=== PATIENT | female | born 1940 | race Caucasian/White ===

== ENCOUNTER 2017-05-05 12:30 | Inpatient (IN) | payer MEDICARE ==
[~2017-05-05] VITALS: Ht 170.2 cm; Wt 61.8 kg
[2017-05-05 12:32] VITALS: BP 128/56; PULSE 102; RESP 17; O2SAT 97
[2017-05-05 13:37] LABS: BASOPHILS % (AUTO) 0.2 % (0-3); EOSINOPHILS % (AUTO) 1.2 % (0-5); MONOCYTES % (AUTO) 10.4 % (4-12); Mean Corpuscular Volume 89.2 fL (81-100); NEUTROPHILS % (AUTO) 67.6 % (40-74); Platelet Count 202 bil/L (150-400)
[2017-05-05 14:00] LABS: Magnesium 1.9 mg/dL (1.6-2.6)
--- NOTE | 2017-05-05 14:26 | ED.REPORT ---
HPI-General Illness Date of Service May 05, 2017 ED Provider: Kendall Addison MD The patient is a 76 year old female with history of Val's granulomatosis, who was sent to the emergency department from the walk in clinic for 1 month of progressive abdominal swelling. She was seen at the walk-in clinic 1 week ago, but was unhappy with the physicians bedside manner and left without getting a CT scan. The swelling has continued to progress. She has also noticed indigestion and has been taking Pepto-Bismol with some relief. She has been having darker stools recently and also mentions some bright red blood that she believes was from a hemorrhoid. She denies current abdominal pain, nausea, vomiting, chest pain, shortness of breath, fever or chills. She does not drink alcohol regularly. Nursing Notes Stated Complaint: ABDOMINAL PAIN Chief Complaint: Female Abdominal Pain Nursing Notes Reviewed: Yes Allergies: Coded Allergies: No Known Allergies (Unverified , 05/05/17) Scheduled Multivitamin (Multivitamins) 1 Each Capsule 1 EACH PO DAILY Scheduled PRN Carboxymethylcellulose Sodium (Refresh Tears) 15 Ml Drops 1 DROP BOTH_EYES TID PRN PRN For Eye Irritation Naproxen Na-Diphenhydramin HCl (Aleve Pm Caplet) 220 Mg-25 Mg Tablet 1 EACH PO HS PRN PRN Insomnia General Time Seen by MD: 12:45 Chief Complaint Other (abdominal bloating) Hx Obtained From: Patient Arrived By: Walk-in Sudden in Onset?: No Onset Occurred: More than a week ago... Symptom Duration: Since onset Location: : Abdomen Quality: Painful Severity: Current: No pain currently Severity: Maximum: Mild Recent Healthcare: No recent hospitalization, Recent doctor visit Similar Sx Previous: No Past Medical History Past Medical History Val's granulomatosis Past Surgical History Reports: Hysterectomy Family History Noncontributory Social History Alcohol Use: "Social" Other Social History: Good social support Ambulatory Status Independent Review of Systems +abdominal bloating, indigestion Full Review of Systems Constitutional: Denies: Chills, Fever Respiratory: Denies: Shortness of breath Cardiovascular: Denies: Chest pain GI: Denies: Abdominal pain, Nausea, Vomiting Complete sys rev & neg: except as marked. Physical Exam Nursing note and vitals reviewed. Constitutional: Well-developed, well-nourished. Not diaphoretic. Head: Normocephalic and atraumatic. Mouth/Throat: Oropharynx is clear and moist. No oropharyngeal exudate. Eyes: EOM are normal. Pupils are equal, round, and reactive to light. Neck: Supple, no tracheal deviation. Cardiovascular: Normal rate, regular rhythm. Equal and intact distal pulses throughout. Pulmonary/Chest: Effort normal and breath sounds normal. No respiratory distress. Abdominal: Soft. Moderate distention without focal tenderness. There is no rebound or guarding. Bowel sounds present. Rectum: No external hemorrhoids. Hemoccult positive. No gross blood. Musculoskeletal: Range of motion grossly intact, moving all extremities. No edema or tenderness appreciated. Neurological: AOx3. Grossly nonfocal exam. Strength and sensation intact and equal to bilateral upper and lower extremities. Skin: Warm and dry, no rashes or pallor appreciated. Psychiatric: Appropriate mood and affect. Behavior appears normal. Vital Signs Vital Signs Date Time Temp Pulse Resp B/P Pulse Ox O2 Delivery O2 Flow Rate FiO2 05/05/17 16:54 78 139/70 98 Room Air 05/05/17 12:32 36.8 102 17 128/56 97 Initial VS: Reviewed Interpretation & Diagnostics Lab Results Interpretation Result Diagram: 05/05/17 1320 05/05/17 1320 Test 05/05/17 13:20 05/05/17 14:03 05/05/17 15:04 White Blood Count 6.6th/mm3 (3.8-10.1) Red Blood Count 3.25mil/mm3 (3.90-5.20) Hemoglobin 9.1g/dL (12.0-15.6) Hematocrit 29.0% (35.0-46.0) Mean Corpuscular Volume 89.2fL (81-100) Mean Corpuscular Hemoglobin 28.0pg (27.0-35.0) Mean Corpuscular Hemoglobin Concent 31.4% (32.0-37.0) Red Cell Distribution Width 15.4% (12.3-15.4) Platelet Count 202bil/L (150-400) Neutrophils (%) (Auto) 67.6% (40-74) Lymphocytes (%) (Auto) 20.3% (14-46) Monocytes (%) (Auto) 10.4% (4-12) Eosinophils (%) (Auto) 1.2% (0-5) Basophils (%) (Auto) 0.2% (0-3) Prothrombin Time 10.4sec (8.1-12.5) Prothromb Time International Ratio 0.97ratio Sodium Level 135mEq/L (134-144) Potassium Level 3.7mEq/L (3.5-5.2) Chloride Level 104mEq/L (97-108) Carbon Dioxide Level 21mmol/L (18-29) Blood Urea Nitrogen 15mg/dL (8-27) Creatinine 0.49mg/dL (0.57-1.00) Estimat Glomerular Filtration Rate 175mL/min (>59) Glucose Level 99mg/dL (60-99) Calcium Level 8.0mg/dL (8.5-10.1) Magnesium Level 1.9mg/dL (1.6-2.6) Total Bilirubin 0.8mg/dL (0.0-1.2) Aspartate Amino Transf (AST/SGOT) 40U/L (0-50) Alanine Aminotransferase (ALT/SGPT) 27U/L (0-32) Alkaline Phosphatase 230U/L (25-165) Total Protein 5.9g/dL (6.4-8.4) Albumin 2.3g/dL (3.4-5.0) Lipase 76U/L (13-60) Hold Urine Received (Received) Lactic Acid Level 1.1mmol/L (0.4-2.0) CT Abd / Pelvis Interpretation IMPRESSION: 1. Nodular liver, esophageal varices, enlarged portal vein, and marked abdominopelvic ascites consistent with stigmata of portal hypertension. This finding was discussed with Dr. Addison at 4:25 PM on 05/05/17. 2. Normal appendix. Diverticulosis. No acute diverticulitis. Dictated by: Elizabeth Green M.D. on 05/05/2017 at 16:20 Study type: Abdominal CT IV contrast, Abdom CT oral contrast Interpretation / Wet Read by: Interpret - Radiologist, Discussed w radiologist Re-Eval/Medical Decision Med Decision/Clinical Course In summary, 76-year-old female presenting to the ED for several weeks of worsening abdominal swelling and discomfort in the setting of darker stools. Hemodynamically stable here in the emergency department. Initial laboratory work notable for a hematocrit of 29; unclear what her baseline is, however Hemoccult positive. Alkaline phosphatase mildly elevated at 230. CT scan of the patient's abdomen and pelvis demonstrates a nodular liver concerning for cirrhosis, as well as an enlarged portal vein, abdominopelvic ascites, and esophageal varices consistent with portal hypertension. Discussed this with the patient. Given her suspected GI bleed, possibility of esophageal varices, and need for endoscopy, plan admission for further evaluation and management. Source of Hx: Old records, Family Time of Eval: 14:30 Re-Evaluation/Progress Note: Discussed plan for CT scan. Time of Eval: 17:33 Re-Evaluation/Progress Note: Rechecked the patient. Discussed CT findings, diagnosis, and plan for disposition. The patient would like to be admitted. Consultation #1: Referral / Consult Name: Chad Morrow MD Call Returned at: 17:29 Residential Real Estate Agent: Agrees with eval, Agrees with plan Note: Spoke with the on-call sewer and drain technician. He will see her as an inpatient. Consultation #2: Consulted With: Hospitalist Requested Call at: 17:48 Residential Real Estate Agent: Will see patient, Agrees with eval, Agrees with plan, Accepts admit Counseled Regarding: Diagnosis, Lab results, Need for admission Discharge & Departure Primary Impression: GI bleed GI bleed type/associated pathology: unspecified gastrointestinal hemorrhage type Qualified Code: K92.2 - Gastrointestinal hemorrhage, unspecified Additional Impression: Cirrhosis Hepatic cirrhosis type: unspecified hepatic cirrhosis Ascites presence: with ascites Qualified Code: K74.60 - Unspecified cirrhosis of liver Disposition: ADMITTED TO HOSPITAL Discharge Condition All VS Reviewed: Yes Condition: Stable Referrals: Emmanuel Palomino MD (PCP) Robertibslim Attestation Portions of this note were transcribed by Alie Ross. I, Dr. Addison personally performed the history, physical exam and medical decision-making; I reviewed and confirmed the accuracy of the information in the transcribed note. Signed by: Michi Alaniz, 05/05/2017 at 2979. copies to: Emmanuel Palomino MD, William B MD May 05, 2017 14:26 Alie Ross May 05, 2017 14:32
[2017-05-05 14:43] LABS: INR 0.97 ratio
[2017-05-05] MEDS ORDERED: Iohexol Inj 30 ML ONE (14:54)
--- NOTE | 2017-05-05 16:28 | DRSVH ---
PROCEDURE: CT ABDOMEN AND PELVIS WITH CONTRAST (PNL-7102) INDICATIONS: marked abd swelling, pain; eval mass vs other abnl TECHNIQUE: After the administration of oral and intravenous contrast, 5 mm thick sections acquired from the diap hragms to the symphysis. 5 mm thick coronal and sagittal reformats were performed. For radiation do se reduction, the following was used: automated exposure control, adjustment of mA and/or kV accordi ng to patient size. COMPARISON: None. FINDINGS: Image quality: Excellent. ABDOMEN: Lung bases: Lung bases are clear. Heart size is normal. There is a small hiatal hernia. There is sm all esophageal bases. Solid organs: The liver has a nodular appearance which may represent cirrhotic transformation. The po rtal vein measures 2 cm in diameter. The spleen is normal size. Gallbladder is unremarkable. Biliary system is non-dilated. Pancreas enhances normally. No adrenal nodules. Kidneys are normal in size and enhancement, without hydronephrosis. Peritoneum and bowel: Stomach, small bowel, and colon loops are normal in caliber and wall thickness . The appendix is thickwalled and contrast-filled. There are scattered sigmoid diverticula. No eviden ce for diverticulitis. There is a large amount of low-density abdominopelvic ascites. Nodes and vessels: No retroperitoneal or mesenteric adenopathy. Aorta and inferior vena cava are no rmal in caliber. Miscellaneous: No ventral hernias. PELVIS: Genitourinary: Bladder wall thickness is normal. Miscellaneous: No inguinal hernias or adenopathy. Bones: No suspicious bony lesions. No vertebral body compression fractures. IMPRESSION: 1. Nodular liver, esophageal varices, enlarged portal vein, and marked abdominopelvic ascites consist ent with stigmata of portal hypertension. This finding was discussed with Dr. Addison at 4:25 PM on 05/05/17. 2. Normal appendix. Diverticulosis. No acute diverticulitis. Dictated by: Elizabeth Green M.D. on 05/05/2017 at 16:20 Approved by: Elizabeth Green M.D. on 05/05/2017 at 16:26
[2017-05-05 16:54] VITALS: BP_SYST 139; BP_SYST 156; BP_DIAS 70; BP_DIAS 75; PULSE 60; PULSE 78; O2SAT 98
[2017-05-05] MEDS ORDERED: MULT1CAP33 PO (18:10)
[2017-05-05] MEDS ORDERED: NAPR1TAB25 PO (18:10)
[2017-05-05] MEDS ORDERED: CARB15DR74 BOTH_EYES (18:22)
[2017-05-05 18:45] VITALS: BP 131/54; PULSE 105; RESP 20; O2SAT 97
[2017-05-05] MEDS ORDERED: Ondansetron 2 mg/mL 2 mL Inj IVPUSH PRN ×2 (18:50→19:35)
[2017-05-05] MEDS ORDERED: Alum-Mag Hydrox-Simeth 30 mL Suspension PO PRN ×2 (18:50→19:35)
[2017-05-05 19:13] VITALS: BP 156/64; PULSE 105; RESP 18; O2SAT 97
[2017-05-05] MEDS ORDERED: Polyethylene Glycol (PEG) 17 Gm Powder PO PRN (19:35)
[2017-05-05] MEDS ORDERED: Pantoprazole Inj 80 MG in 0.9% Sodium Chloride 80 ML IV SCH (19:35)
[2017-05-05] MEDS ORDERED: Pantoprazole Inj 80 MG in 0.9% Sodium Chloride 100 ML IV ONE (19:35)
--- NOTE | 2017-05-05 19:43 | PCM.HPMED ---
Subjective Date of Service May 05, 2017 Primary Provider: Admitting Physician: Catia Owens DO Primary Care Physician: Emmanuel Palomino MD Attending Physician: Catia Owens DO Admit Status: From the Emergency Department Chief Complaint: abdominal pain History of Present Illness: 76yoF with past medical history of Lalita's admitted with subacute onset of abdominal distension and worsening abdominal pain. Patient is fatigued and mildly confused during interview but able to give some history. 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 Over the past couple of weeks she has noticed increased abdominal distension associated with crampy abdominal pain. She denies fevers stating that she "never has fevers" and endorsing chills noting she "always has chills and need to wear extra clothing to keep warm". Nothing has improved her crampy abdominal pain but she has tried pepto-bismol. She denies nausea, vomiting, decreased PO intake, lightheadedness, dizziness, orthopnea, chest pain or PND but endorses increased "gurgling" from her distended abdomen and increase flatulence with ongoing tarry stools. As far as past history she denies anything other than Lalita's including hepatitis. She denies frequent alcohol use and prefers to only sip a beverage infrequently due to nausea a/w ETOH consumption. She has not past history of tobacco use but has been exposed to asbestos as a child. She speaks frequently during her interview of the many places she has traveled throughout the world during her lifetime. PCP: Dr. Pratt but she has not seen him for "a long time" Review of Systems: complete review of systems obtained. positive as per hpi otherwise negative. 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 Hx Alcohol Use: Yes (occasional glass of wine) Hx Substance Use: No Hx Tobacco Use: No Smoking Status: Never Smoker Living Arrangement: Alone (possible move to SNF in near future) Additional Information no children DPOA brother Ray Exam Vital Signs Vital Sign - Last Date Time Temp Pulse Resp B/P Pulse Ox O2 Delivery O2 Flow Rate FiO2 05/05/17 19:13 36.8 105 18 156/64 97 Room Air 05/05/17 16:54 Exam General: Alert, Oriented X3, Cooperative, No acute Distress, fatigued, eyes closed through majority of interview, cachetic Eyes: PERRLA, Scleral Anicteric Mouth: Mouth Normal, Mucous Membranes Moist/[place] Neck: Supple, no Thyromegaly, trachea central. Chest & Lungs: clear to auscultation bilateral, no wheezes, rales, rhonchi, good resp effort Cardiovascular: Normal S1, Normal S2, No Rubs/Gallops, regular (No JVD, + peripheral edema) Pulses: Radial (present and equal), Dorsalis Pedi (present and equal) Abdomen: Soft, tender diffusely, distended, hyperactive bowel tones, + fluid wave. Musculoskeletal: Unremarkable. Normal range of motion, no swollen or erythematous joints aside from knees which unable to exam due to dressings Extremities: No edema, no cyanosis, no clubbing. bandages CDI Skin: No rashes. Warm and dry, no erythematous areas Neurological: Grossly neurologically intact, has generalized weakness, Normal Speech, Sensation Intact Lymphatic: Lymph nodes Cervical and Axillary not palpable. Lab and Diagnostics Result Diagram: 05/05/17 1320 05/05/17 1320 X-Rays, CTs and MRIs Patient Name: ANA ACEVEDO MR#: [id number] [place] [facility] [place] Phys: Kendall Addison MD Date of Service: 05/05/17 142 PROCEDURE: CT ABDOMEN AND PELVIS WITH CONTRAST (PNL-7102) INDICATIONS: marked abd swelling, pain; eval mass vs other abnl TECHNIQUE: After the administration of oral and intravenous contrast, 5 mm thick sections acquired from the diaphragms to the symphysis. 5 mm thick coronal and sagittal reformats were performed. For radiation dose reduction, the following was used : automated exposure control, adjustment of mA and/or kV according to patient size. COMPARISON: None. FINDINGS: Image quality: Excellent. ABDOMEN: Lung bases: Lung bases are clear. Heart size is normal. There is a small hiatal hernia. There is small esophageal bases. Solid organs: The liver has a nodular appearance which may represent cirrhotic transformation. The portal vein measures 2 cm in diameter. The spleen is normal size. Gallbladder is unremarkable. Biliary system is non-dilated. Pancreas enhances normally. No adrenal nodules. Kidneys are normal in size and enhancement, without hydronephrosis. Peritoneum and bowel: Stomach, small bowel, and colon loops are normal in caliber and wall thickness. The appendix is thickwalled and contrast-filled. There are scattered sigmoid diverticula. No evidence for diverticulitis. There is a large amount of low-density abdominopelvic ascites. Nodes and vessels: No retroperitoneal or mesenteric adenopathy. Aorta and inferior vena cava are normal in caliber. Miscellaneous: No ventral hernias. PELVIS: Genitourinary: Bladder wall thickness is normal. Miscellaneous: No inguinal hernias or adenopathy. Bones: No suspicious bony lesions. No vertebral body compression fractures. IMPRESSION: 1. Nodular liver, esophageal varices, enlarged portal vein, and marked abdominopelvic ascites consistent with stigmata of portal hypertension. This finding was discussed with Dr. Addison at 4:25 PM on 05/05/17. 2. Normal appendix. Diverticulosis. No acute diverticulitis. Dictated by: Elizabeth Green M.D. on 05/05/2017 at 16:20 Approved by: Elizabeth Green M.D. on 05/05/2017 at 16:26 Assessment & Plan 76yoF with past medical history of Lalita's admitted with subacute onset of abdominal distension and worsening abdominal pain. Abdominal pain, acute, POA -concerning for SBP given CT imaging, possibly a/w acute GI bleed, cirrhosis w/ ascites -ceftriaxone 1g q24HR -diagnostic and therapeutic paracentesis in am, day team to schedule with IR GI bleed, acute, POA -normocytic anemia on admission with CT scan concerning for cirrhosis with noted esophageal varices -guaiac positive stools in ED -trend H&H q4HR overnight -NPO, mIVF -pantoprazole gtt -octreotide gtt -type and screen, threshold to transfuse hgb 7 -GI consult, recs appreciated Normocytic anemia, acute, POA -treat as above -consideration to B12 and folate levels if H&H stable Lower extremity wounds, chronic, POA -dressed on admission -reassess following admission -wound care consult -avoid SCDs at this time Pain Evaluation: Adequate Pain Control GI Prophylaxis: Proton Pump Inhibitor (pantoprazole gtt) VTE Prophylaxis: SCDs (no SCDs in the setting of lower extremity wounds, heparin contraindicated in the setting of probable GI bleed) Resuscitation Status: DNR/DNI:Do Not Resuscitate/Intubate (discussed with patient on admission ) Catia Owens DO May 05, 2017 19:43
[2017-05-05] MEDS ORDERED: cefTRIAXone Inj 1,000 MG in Dextrose 5% Minibag Plus 50 ML IV SCH (19:45)
[2017-05-05] MEDS ORDERED: Pantoprazole 4 mg/mL 10 mL Inj IVPUSH ONE ×2 (19:45→19:50)
--- NOTE | 2017-05-05 20:00 | NUR ---
ADMIT/NEURO Pt arrived on floor at 1900. Ambulated to bed. Pt alert to self only. Is incorrect when stating her birthday or year, said she thought she was in [place]. Pt easily reoriented. In conversation, pt tells many stories of her past and how she is moving from her "old lady home into assisted living." In conversation pt does not appear to be confused, but may switch subjects abruptly. Gait is steady though pt reports feeling weak, michell alarm on in bed and chair for safety. Continuing care.
[2017-05-05 20:40] LABS: APPEARANCE,URINE CLEAR (CLEAR,HAZY); COLOR,URINE DARK YELLOW (YELLOW); OCCULT BLOOD,URINE NEGATIVE (NEGATIVE); PH,URINE 5.5 (5.0-8.0); UROBILINOGEN,URINE NORMAL (NORMAL)
[2017-05-05] MEDS: 0.9% Sodium Chloride 1,000 ML IV SCH (22:25)
[2017-05-05] MEDS: Pantoprazole 8 mg/Hr Infusion IV SCH ×2 (22:31)
[2017-05-05] MEDS: Octreotide Inj 500 MCG in 0.9% Sodium Chloride 99 ML IV SCH (22:31)
[2017-05-06] VITALS (12 sets, daily range): BP systolic 131–164; BP diastolic 62–75; PULSE 88–105; RESP 16–20; O2SAT 94–96
[2017-05-06] MEDS: Octreotide Inj 500 MCG in 0.9% Sodium Chloride 99 ML IV SCH ×2 (06:50→15:35)
[2017-05-06 08:40] LABS: BASOPHILS % (AUTO) 0.1 % (0-3); EOSINOPHILS % (AUTO) 0.6 % (0-5); MONOCYTES % (AUTO) 9.3 % (4-12); Mean Corpuscular Hemoglobin 28.6 pg (27.0-35.0); Mean Corpuscular Volume 87.1 fL (81-100); NEUTROPHILS % (AUTO) 77.3 % (40-74); Platelet Count 197 bil/L (150-400)
[2017-05-06 09:01] LABS: INR 0.99 ratio
[2017-05-06 09:07] LABS: Magnesium 1.9 mg/dL (1.6-2.6); Phosphorus 3.4 mg/dL (2.5-4.9)
[2017-05-06] MEDS: Pantoprazole 8 mg/Hr Infusion IV SCH ×4 (10:26→15:50)
--- NOTE | 2017-05-06 13:01 | CONS ---
[address] [address] CONSULTATION REPORT PATIENT: ANA ACEVEDO : 1940 MR#: [id number] ADMIT: 05/05/2017 JOB ID: [id number] DATE OF SERVICE: 05/06/2017 REASON FOR CONSULTATION: It was a pleasure seeing this patient at [facility] GI service for evaluation of abdominal pain. HISTORY OF PRESENT ILLNESS: This is a 76-year-old lady who is currently confused and poor historian. She could not recall her birthday, and when I talked to her, she could not recall what today's date was. But she did know that she was at [facility]. She seemed to have lost the concept of time, but she repeatedly says that she is going to live with her brother and she is in process of moving out of her house, and it appears that she is also living by herself. She also has a history of Val's granulomatosis and hysterectomy, who came to the emergency department with progressive abdominal swelling and abdominal pain. She said her swelling started about a week ago. Then, she said she was not feeling well about a month ago. But when closer questioning, she seems to be having trouble remembering the exact details. Therefore she is a poor historian. The ER note indicated that she was seen in the walk-in clinic and was unhappy with the physician; therefore she left the walk-in clinic without getting a CT scan. During this time, she continued to have increased swelling of the abdomen and she started taking Pepto-Bismol. It is unclear when she started seeing darker stools, but she says she has normal stools; in fact she said yesterday she had normal stools but she noticed flakes of dark material on it, but she said most of her stool and if not all of her stools are completely normal. So because of the abdominal discomfort, she was taking Pepto. At one point she thought she was also constipated, and for me, she did not mention any bright red blood per rectum. She also says she does not drink alcohol. She says she only drinks alcohol once a month or only during the holidays and she was very specific in terms of when she drinks her alcohol. She was not able to describe her abdominal pain. She says she just feels uncomfortable. She denies any fever, chills, headaches, blurred vision, dizziness, lightheadedness, chest pain, shortness of breath, blood in the stools. She says she has little flecks of black material in the stool and this was consistent with the rectal exam done in the ER, where they saw a little bit of melenic or black material with brown stool which did returned item clerk to be guaiac-positive. PAST MEDICAL HISTORY: Val's granulomatosis. PAST SURGICAL HISTORY: Hysterectomy. 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 No tobacco or drug use. MEDICATIONS: Include pantoprazole, octreotide, ceftriaxone, MiraLAX, Zofran, and Maalox. PHYSICAL EXAMINATION: Patient is alert, oriented, comfortable. Temp 36.6, pulse 88, respirations 16, blood pressure 155/70. Head and neck: No icterus. No lymphadenopathy. Lungs clear. Cardiovascular: Regular rhythm with normal S1, S2. Abdomen is soft, moderately distended. Bowel sounds present. Extremities: No pitting edema of the ankles, but there seems to be some venous stasis and she is very tender to touch and she said she has neuropathy, but again this has not been documented. There is no documented history of diabetes as well. Skin shows no jaundice. LABORATORY DATA: Hemoglobin 10.2, platelets 197,000, white count is 8400. Chemistry shows ALT of 33, alk phos 263, total protein 5.8, albumin 2.3, lipase 76. BUN 14, creatinine 0.49. CT of the abdomen was done which showed nodular liver, esophageal varices, enlarged portal vein, and marked abdominopelvic ascites. IMPRESSION: This is a 76-year-old lady with what appears to be portal hypertension. Albumin is low; however she has normal platelets and she is overall a poor historian. 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 The only records in our system on an outpatient basis is in 2013 which showed that she was seen once for numbness and she has a history of peripheral neuropathy. She takes fish oil, naproxen, Coenzyme Q at that time, and this was in 2013. In 2013, blood test was done, which showed hemoglobin 13.2, normal platelets, sed rate was elevated at 77, and LFTs are normal with albumin being 4.1. But, based on the CT scan, there seems to be definitely evidence of ascites with cirrhosis. PLAN: 1. Neurologically she is confused and disoriented. She is alert and she follows commands. She has no asterixis on exam. Therefore this is not hepatic encephalopathy. Would recommend neurological workup and I will defer this to the primary care service. 2. Cardiopulmonary villanueva, she denies any chest pain, shortness of breath. No evidence or history of heart disease. However, she is a little tachycardic and I would get an echocardiogram on her to make sure there is no evidence of right-sided heart failure causing possible stasis issue in the liver, which could go into cirrhosis on a long-term basis; however this is probably not as likely but still recommend getting echocardiogram, but I will defer this to the primary care service. 3. Ascites, new onset. This needs to be tapped and would get cell count with differential, total protein albumin, and culture this as well, as well as Gram stain. I would also obtain an ultrasound with Dopplers to make sure there is no evidence of portal vein thrombosis. Her BUN and creatinine is normal; therefore with the ascites once we confirmed that this is hepatic ascites, I think diuretics will be useful. Would start with low dose with Lasix of 20, spironolactone of 50 mg, but we could do this much later. I would give her sodium restricted diet; no more than 2 g of sodium per day. 4. There is no evidence of infection but I would panculture this lady, including blood, chest x-ray, urine. If she does have SBP, consider cefotaxmine. 5. At this point, I think we need to know why she has underlying cirrhosis. We could start off by obtaining hepatitis profile, antimitochondrial antibody test, antismooth muscle antibody test. Ceruloplasmin, alpha-I antitrypsin level, iron level, ferritin level. Because she is also cirrhotic would get alpha fetoprotein level to rule out liver malignancy. 6. She would need to have an upper endoscopy at one point. However I do not think she is consentable at this point. NIVIAD
[2017-05-06] MEDS: 0.9% Sodium Chloride 1,000 ML IV SCH (14:17)
[2017-05-06] MEDS: Lactulose 20 Gm/30 mL 30 mL Syrup PO SCH ×2 (15:07→21:49)
--- NOTE | 2017-05-06 15:09 | NUR ---
Evaluation completed. Please go to "Notes" then click on "Assessments and Notes" (bottom left corner of screen). Then select appropriate discipline tab on top of screen.
--- NOTE | 2017-05-06 15:41 | NUR ---
BP/BM/Cont Care: Pt BP today is trending up: 132/69, 142/71, 155/70, 164/74. Pt asymptomatic, no pain, no N/V, notified, no new orders and monitor BP for now. Pt had medium, formed BM today. Brown and no blood noted. Diet advanced to soft/thin, small bites at first. GI doctor to assess pt this afternoon.
--- NOTE | 2017-05-06 15:50 | NUR ---
Social Work- Initial Assessment Data: See Initial Assessment. Pt is a 76 year old female admitted 05/05/17 for GI Bleed, Cirrhosis per H&P. GI has been consulted, pt may receive scope and paracentesis with cultures. RUSSELL to evaluate pt. Pt's PCP is Emmanuel Palomino MD. Pt's insurance is [facility] and [employer]. JOYCELYN met with pt and pt's DPOA/brother Jonathan Reyes and his Pratibha at bedside regarding discharge plan, SW role explained. Pt is a poor historian and Jonathan and Pratibha completed most of this assessment. Jonathan and Pratibha report that they are in the process of moving pt out of her home and into an independent living facility called [facility] in . Pt is a dual [place] citizen and they were going to rent a [employer] and move her up to this weekend prior to her admission. Pt currently lives alone in a home where she was experiencing decreased functional and cognitive capabilities, which is why Jonathan decided to move her closer to him. Jonathan lives in five minutes from [facility]. Pt has no HH or SNF history, pt has no DME at home, pt has no LTC or VA benefits. Pt does not drive. Jonathan and Pratibha were planning on hiring RN caregivers to assist pt at [facility] if needed based on her capabilities. [facility] provides meals, a health emergency alert system, socialization, and housekeeping/chores for all of its residents. Any medication management would be done by private pay residential treatment staff hired by the family, which they state they are able and willing to do. Pt's family reports a decrease in pt's cognitive function over the past few months, including increased forgetfulness, confusion. Pt reports losing track of objects very frequently. Pt and pt's family report numbness, sharp pains, and edema in pt's legs and feet which contribute to unsteady ambulation. Pt reports that she doesn't go out much anymore because she is unsteady. JOYCELYN suggested pt's family purchasing a simple walker for her to use so she is more stable. Pt is anticipated to discharge home with family to move her up to as soon as possible after discharge pending clinical course. Pt's family have taken the necessary steps to ensure pt has a plan in place for retirement. Because the facility is already paid for and coordinated, it is unlikely that [employer] will be able to coordinate something that would be useful to pt for such a short period of time before she moves to . SW will continue to follow pt during this admission and assist with discharge planning needs as they arise. Assessment: Pt who is transitioning to an independent living facility in Plan: Pt is anticipated to discharge home with family to move her up to as soon as possible after discharge pending clinical course. Pt's family have taken the necessary steps to ensure pt has a plan in place for intermission coordinator. Because the facility is already paid for and coordinated, it is unlikely that [employer] will be able to coordinate something that would be useful to pt for such a short period of time before she moves to . Pt and family agree with this. SW will continue to follow pt during this admission and assist with discharge planning needs as they arise. SCOTT Lilly Addendum: 05/06/17 at 1600 by MAYELIN LOUISE Amended: Links added.
--- NOTE | 2017-05-06 17:32 | DRSVH ---
PROCEDURE: X-RAY CHEST ONE VIEW, PORTABLE ([id number]) INDICATIONS: 76 year-old female with heart failure. TECHNIQUE: One view of the chest was acquired. COMPARISON: None. FINDINGS: Surgical changes and devices: None. Lungs and pleura: No pleural effusions or pneumothorax. Lungs are clear, without pulmonary edema. Mediastinum: Mediastinal contours appear normal. Heart size is normal. There is aortic atheroscler osis. Bones and chest wall: No suspicious bony lesions. Overlying soft tissues appear unremarkable. IMPRESSION: No acute cardiopulmonary disease. Dictated by: Yonathan Morton M.D. on 05/06/2017 at 17:29 Approved by: Yonathan Morton M.D. on 05/06/2017 at 17:31
[2017-05-06 18:02] LABS: BASOPHILS % (AUTO) 0.1 % (0-3); EOSINOPHILS % (AUTO) 0.1 % (0-5); MONOCYTES % (AUTO) 7.4 % (4-12); Mean Corpuscular Hemoglobin 28.9 pg (27.0-35.0); Mean Corpuscular Volume 88.4 fL (81-100); Platelet Count 233 bil/L (150-400)
[2017-05-06] MEDS: cefTRIAXone Inj 1,000 MG in Dextrose 5% Minibag Plus 50 ML IV SCH (21:49)
[2017-05-06 22:24] LABS: APPEARANCE,URINE SLIGHTLY CLOUDY (CLEAR,HAZY); COLOR,URINE DARK YELLOW (YELLOW); OCCULT BLOOD,URINE TRACE (NEGATIVE); UROBILINOGEN,URINE NORMAL (NORMAL)
--- NOTE | 2017-05-06 23:49 | PCM.PNMED ---
Subjective Date of Service May 06, 2017 Subjective Patient is a little bit more awake and alert today. She has no new complaints. Exam Vital Signs Vital Sign - Last Date Time Temp Pulse Resp B/P Pulse Ox O2 Delivery O2 Flow Rate FiO2 05/06/17 19:49 36.8 98 18 158/73 95 Room Air 05/05/17 16:54 Intake and Output 05/05/17 05/05/17 05/06/17 Cumulative From/Thru 15:00 23:00 07:00 05/05/17 12:32 - 05/06/17 06:20 Intake Total 810 ml 810 ml Output Total 150 ml 150 ml Balance 660 ml 660 ml Intake Oral 0 ml 0 ml IV Total 810 ml 810 ml Output Urine Total 150 ml 150 ml # Bowel Movements 0 0 Exam General: Patient is comfortable lying supine in bed. HEENT: Head is atraumatic and normocephalic. Eyes: Pupils are equally round and reactive to light and accommodation. Extraocular muscles are intact. Sclera are white, anicteric. Subconjunctival mucosa is pink. Ears and nose are unremarkable. Oropharynx: There is no mucosal lesions, there is no thrush, there is no pharyngitis. Neck: Is supple, there are no nodes, or masses or tenderness. Chest: Is clear to auscultation and percussion. There are no rales, rhonchi, wheezes or rubs. Heart: Rate, rhythm is regular. There is no murmur, rub or gallop. Abdomen: Good bowel sounds are present. Abdomen is obese, soft, nontender, no organomegaly or masses were appreciated. However, patient has a fluid wave shift. Extremities: Are symmetrical and well perfused. There is evidence of brawny edema, there is no cellulitis, no rash. 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 Neurologic: There are no focal neurological deficits. Cranial nerves II through XII are intact. There are no sensory or motor deficits. However, patient is confused. She exhibits no asterixis. Psychiatric: Patients mood is calm and shows no sign of agitation. However, patient is confused. Genital: Deferred Rectal: Deferred Lab and Diagnostics Result Diagram: 05/06/17 1750 05/06/17 0800 X-Rays, CTs and MRIs Patient Name: ANA ACEVEDO MR#: [id number] Location: [facility] Ordering Phys: Kendall Addison MD Date of Service: 05/05/171428 PROCEDURE: CT ABDOMEN AND PELVIS WITH CONTRAST ([id number]) INDICATIONS: marked abd swelling, pain; eval mass vs other abnl TECHNIQUE: After the administration of oral and intravenous contrast, 5 mm thick sections acquired from the diaphragms to the symphysis. 5 mm thick coronal and sagittal reformats were performed. For radiation dose reduction, the following was used : automated exposure control, adjustment of mA and/or kV according to patient size. COMPARISON: None. FINDINGS: Image quality: Excellent. ABDOMEN: Lung bases: Lung bases are clear. Heart size is normal. There is a small hiatal hernia. There is small esophageal bases. Solid organs: The liver has a nodular appearance which may represent cirrhotic transformation. The portal vein measures 2 cm in diameter. The spleen is normal size. Gallbladder is unremarkable. Biliary system is non-dilated. Pancreas enhances normally. No adrenal nodules. Kidneys are normal in size and enhancement, without hydronephrosis. Peritoneum and bowel: Stomach, small bowel, and colon loops are normal in caliber and wall thickness. The appendix is thickwalled and contrast-filled. There are scattered sigmoid diverticula. No evidence for diverticulitis. There is a large amount of low-density abdominopelvic ascites. Nodes and vessels: No retroperitoneal or mesenteric adenopathy. Aorta and inferior vena cava are normal in caliber. Miscellaneous: No ventral hernias. PELVIS: Genitourinary: Bladder wall thickness is normal. Miscellaneous: No inguinal hernias or adenopathy. Bones: No suspicious bony lesions. No vertebral body compression fractures. IMPRESSION: 1. Nodular liver, esophageal varices, enlarged portal vein, and marked abdominopelvic ascites consistent with stigmata of portal hypertension. This finding was discussed with Dr. Addison at 4:25 PM on 05/05/17. 2. Normal appendix. Diverticulosis. No acute diverticulitis. Dictated by: Elizabeth Green M.D. on 05/05/2017 at 16:20 Approved by: Elizabeth Green M.D. on 05/05/2017 at 16:26 Assessment & Plan The patient is a 76yo white female with past medical history of Lalita's admitted with subacute onset of abdominal distension and worsening abdominal pain. Abdominal pain, acute, present at the time of admission. Active - This is concerning for SBP given CT imaging, possibly a/w acute GI bleed, cirrhosis w/ascites - We will continue ceftriaxone and increase dose to 1g q12HR - GI consultation has been obtained and appreciate Dr. Morrow's time and expertise. A diagnostic and therapeutic paracentesis in am, day team to schedule with IR GI bleed, acute, POA - The patient has normocytic anemia on admission with CT scan concerning for cirrhosis with noted esophageal varices - The patient has guaiac positive stools in ED - We will trend H&H as needed - We will advance diet as tolerated for now - We will continue pantoprazole gtt - We will continue octreotide gtt - We will type and screen, threshold to transfuse hgb 7 - GI consult, recs appreciated Normocytic anemia, acute, POA -treat as above -consideration to B12 and folate levels if H&H stable Lower extremity wounds, chronic, POA -dressed on admission -reassess following admission -wound care consult -avoid SCDs at this time Disposition: Patient likely to be here another 48-72 hours for continued evaluation and treatment of the above serious conditions. Appreciate GI consultation and will follow recommendations. Discussed with Dr. Morrow today. I have discussed with patient's brother and [id number] at bedside at length multiple times today and they agree with the above plan. Pain Evaluation: Adequate Pain Control GI Prophylaxis: Proton Pump Inhibitor (pantoprazole gtt) VTE Prophylaxis: SCDs (no SCDs in the setting of lower extremity wounds, heparin contraindicated in the setting of probable GI bleed) VTE Mechanical Devices: Intermittant Pneumatic CD Resuscitation Status: DNR/DNI:Do Not Resuscitate/Intubate (discussed with patient on admission ) Deric Sykes MD May 06, 2017 23:49
[2017-05-07] VITALS (7 sets, daily range): BP systolic 130–146; BP diastolic 62–86; PULSE 88–103; RESP 16–19; O2SAT 94–97
--- NOTE | 2017-05-07 03:59 | NUR ---
activity pt has complained of restlessness tonight. she denies any abdominal pain but says she just can't get into a comfortable position. nursing staff has assisted pt with moving to different positions and offering warm blankets for comfort. bed in low position, call light within reach, hourly rounding continues.
[2017-05-07] MEDS: Pantoprazole 40 mg ER24 Tablet PO SCH (06:30)
[2017-05-07] MEDS: Lactulose 20 Gm/30 mL 30 mL Syrup PO SCH ×3 (08:23→21:51)
[2017-05-07] MEDS: cefTRIAXone Inj 1,000 MG in Dextrose 5% Minibag Plus 50 ML IV SCH ×2 (08:24→21:53)
[2017-05-07 09:23] LABS: Magnesium 1.8 mg/dL (1.6-2.6)
[2017-05-07 09:27] LABS: BASOPHILS % (AUTO) 0.1 % (0-3); EOSINOPHILS % (AUTO) 0.2 % (0-5); MONOCYTES % (AUTO) 7.2 % (4-12); Mean Corpuscular Hemoglobin 28.5 pg (27.0-35.0); Mean Corpuscular Volume 89.1 fL (81-100); NEUTROPHILS % (AUTO) 84.7 % (40-74); Platelet Count 222 bil/L (150-400)
[2017-05-07] MEDS: 0.9% Sodium Chloride 1,000 ML IV SCH (11:47)
--- NOTE | 2017-05-07 13:05 | DRSVH ---
PROCEDURE: US ABDOMEN DOPPLER INDICATIONS: 76 year-old woman with cirrhosis and GI bleeding. TECHNIQUE: Real-time scanning was performed of the abdominal and retroperitoneal organs, with image documentatio n. Color and pulse Doppler interrogation was also performed of the hepatic and splenic vessels, or o f the lesion of interest. COMPARISON: [facility], CR, XR CHEST 1VW (PORTABLE), 05/06/2017, 17:09. [facility], CT, CT ABD PELVIS W CON, 05/05/2017, 16:05. FINDINGS: Liver: Liver is normal in size and demonstrates somewhat heterogeneous echotexture. Doppler: Main portal vein is patent, with luminal diameter of 20 mm (normal of 13-16 mm). On pulse Doppler interrogation, portal vein flow direction is hepatopetal. Hepatic artery Doppler waveforms d emonstrate normal systolic upstrokes. Hepatic veins are all patent, with expected triphasic Doppler waveforms. Gallbladder: There is sludge within the gallbladder. The gall bladder wall is thickened measuring 3.8 mm. A small amount of ascites is present in the color fossa. No sonographic Jiménez sign. Biliary ducts: No intrahepatic biliary ductal dilatation. Extrahepatic bile duct is 3 mm in caliber . Normal biliary caliber is 6-7 mm or less, or 10 mm or less post-cholecystectomy. Spleen: Spleen is normal in size and homogeneous in echotexture. Pancreas: Visualized portions of the pancreas appear normal. Kidneys: Both kidneys are normal in size and echotexture. Right kidney measures 11.9 cm long; left kidney measures 12.1 cm long. No hydronephrosis or nephrolithiasis. No solid renal masses. Aorta: Visualized abdominal aorta is normal in caliber at less than 3 cm. Iliacs: Proximal common iliac arteries are normal in caliber at less than 2.5 cm. IVC: Intrahepatic inferior vena cava is patent. Miscellaneous: There is a small amount of free abdominal fluid in all 4 quadrant. Small bilateral eff usions are present. IMPRESSION: 1. Liver demonstrates heterogeneous echotexture consistent with cirrhosis. The main portal vein is di lated. There is hepatopedal flow in main portal vein. 2. Gallbladder sludge. Mild gallbladder wall thickening is present, likely secondary to chronic liver disease process in acute cholecystitis. Recommend clinical correlation. 3. A small amount of ascites. 4. Small bilateral effusions. Dictated by: Leatha Cohen M.D. on 05/07/2017 at 12:57 Approved by: Leatha Cohen M.D. on 05/07/2017 at 13:03
--- NOTE | 2017-05-07 15:20 | DRSVH ---
[facility] [address] [place] [address] Echocardiogram Report Name: ANA ACEVEDO Study Date: 05/07/2017 Height: 67 in Hospital Exam Location: [facility] Weight: 141 lb Gender: Female BSA: 1.7 m2 : 1940 Age: 76 yrs BP: 146/64 mmHg Reason For Study: Congestive Heart Failure Ordering Physician: Performed By: Palma Devries Referring Physician: Radha Sawyer Interpretation Summary The left ventricle is normal in size, wall thickness, and systolic function without any focal wall motion abnormalities. Left ventricular systolic function is normal. The ejection fraction is estimated to be 60-65%. Assessment of diastolic parameters indicates normal left ventricular diastolic function and normal filling pressures. The right ventricle is normal in size, thickness and function. The right ventricular systolic function is normal. The right ventricular systolic pressure is estimated at 33 mmHg assuming a right atrial pressure of 3 mm Hg. There is mild to moderate mitral regurgitation. No other echocardiographic abnormalities seen. Procedure: A two-dimensional transthoracic echocardiogram with color flow and Doppler was performed. The study quality was technically good. There is no prior echocardiogram noted for this patient. The patient was in normal sinus rhythm during the exam. Left Ventricle: The left ventricle is normal in size, wall thickness, and systolic function without any focal wall motion abnormalities. The ejection fraction is estimated to be 60-65%. Left ventricular systolic function is normal. Assessment of diastolic parameters indicates normal left ventricular diastolic function and normal filling pressures. Right Ventricle: The right ventricle is normal in size, thickness and function. The right ventricular systolic function is normal. Atria: The left atrium is moderately dilated. The right atrium is mild to moderately dilated. Chiari network (normal variant) is noted. A patent foramen ovale is suspected. Mitral Valve: The mitral valve is normal in structure but abnormal in function. There is mild to moderate mitral regurgitation. Aortic Valve: The aortic valve is trileaflet. The aortic valve opens well. No aortic regurgitation is present. Tricuspid Valve: The tricuspid valve is normal in structure and function. There is a trace or physiologic amount of tricuspid regurgitation. The right ventricular systolic pressure is estimated at 33 mmHg assuming a right atrial pressure of 3 mm Hg. Pulmonic Valve: The pulmonic valve is not well seen, but is grossly normal. There is no pulmonic valvular regurgitation. Great Vessels: The aortic root is normal size. The IVC is of normal diameter and collapses greater than 50% with a sniff. This suggests a low right atrial pressure of 3 mm Hg. Pericardium/ Pleura There is no pericardial effusion. There is no pleural effusion. Moderately large abdominal ascites was noted. MMode/2D Measurements & Calculations LVIDd: 4.4 cm LA dimension: 4.1 cm RA long axis Ao root diam LVIDs: 2.9 cm FS: 33.3 % LA A2 area: 26.0 cm RA area Aortic Jxn: 2.3 cm IVSd: 0.93 cm LA A4 area: 25.4 cm Ao Arch Diam (Prox LVPWd: 0.91 cm LA length (vol) : 17.0 cm Trans): 2.6 cm RA vol LA vol: 105.0 ml : 51.3 ml LA vol index RA : 29.4 mm/ RVDd major IVC diam: 1.8 cm : 4.9 cm LV shabazz. diameter/BSA LV sys. diameter/BSA RVD1 (basal) RVD2 (mid): 3.3 cm (cm/m^2): 2.5 (cm/m^2): 1.7 Doppler Measurements & Calculations Ao V2 max MV E max herbert MV E/A: 1.0 TR max herbert : 164.2 cm/sec : 84.5 cm/sec Med Peak E' Herbert : 272.5 cm/sec Ao max PG MV A max herbert TR max PG : 10.8 mmHg : 83.1 cm/sec E/E' med: 9.6 : 29.7 mmHg Ao mean PG MV P1/2t: 50.4 msec Lat Peak E' Hrebert PA V2 max : 5.9 mmHg MR ERO: 0.15 cm2 : 106.9 cm/sec E/E' lat: 9.5 PA mean PG E/e' average: 9.6 MV A dur: 0.11 sec PA Accel Time : 0.13 sec MV dec time MV P1/2t max herbert Ao V2 mean MR flow rate : 0.18 sec : 115.8 cm/sec : 85.4 cm3/sec MVA(P1/2t): 4.4 cm2 Ao V2 VTI: 37.7 cm MR PISA radius PA V2 mean : 82.9 cm/sec Reading Physician:03:19 PM
--- NOTE | 2017-05-07 15:30 | NUR ---
Mentation/BM Large watery BM. Additional lactulose given as ordered. Pt alert, oriented to person and place, not time. Does not remember why she is here. Appropriate and compliant with care.
--- NOTE | 2017-05-07 23:38 | PCM.PNMED ---
Subjective Date of Service May 07, 2017 Subjective Patient is more alert and responsive. She has no new complaints. She continues to complain of abdominal fullness and also complained of difficulty just getting to the bathroom and back with assistance. She states it took approximately half an hour to go to the bathroom and back. Exam Vital Signs Vital Sign - Last Date Time Temp Pulse Resp B/P Pulse Ox O2 Delivery O2 Flow Rate FiO2 05/07/17 20:00 94 05/07/17 19:55 37.1 16 142/62 97 Room Air 05/05/17 16:54 Intake and Output 05/06/17 05/06/17 05/07/17 Cumulative From/Thru 15:00 23:00 07:00 05/05/17 12:32 - 05/07/17 06:37 Intake Total 785 ml 1036 ml 2631 ml Output Total 900 ml 850 ml 1900 ml Balance -115 ml 186 ml 731 ml Intake Oral 0 ml 400 ml 400 ml IV Total 785 ml 636 ml 2231 ml Output Urine Total 900 ml 650 ml 1700 ml Stool Total 200 ml 200 ml # Bowel Movements 1 1 2 Exam General: Patient is comfortable lying supine in bed. She was a little short of breath and tachycardic after returning from the bathroom. HEENT: Head is atraumatic and normocephalic. Eyes: Pupils are equally round and reactive to light and accommodation. Extraocular muscles are intact. Sclera are white, anicteric. Subconjunctival mucosa is pink. Ears and nose are unremarkable. Oropharynx: There is no mucosal lesions, there is no thrush, there is no pharyngitis. Neck: Is supple, there are no nodes, or masses or tenderness. Chest: Is clear to auscultation and percussion. There are no rales, rhonchi, wheezes or rubs. Heart: Rate, rhythm is regular. There is no murmur, rub or gallop. Abdomen: Good bowel sounds are present. Abdomen is obese, soft, nontender, no organomegaly or masses were appreciated. However, patient has a fluid wave shift. Extremities: Are symmetrical and well perfused. There is evidence of brawny edema, there is no cellulitis, no rash. 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 Neurologic: There are no focal neurological deficits. Cranial nerves II through XII are intact. There are no sensory or motor deficits. The patient is confused, however slightly less so today and more alert.. She exhibits no asterixis. Psychiatric: Patients mood is calm and shows no sign of agitation. However, patient is confused. Genital: Deferred Rectal: Deferred Lab and Diagnostics Result Diagram: 05/07/17 0921 05/07/17 0820 X-Rays, CTs and MRIs Patient Name: ANA ACEVEDO MR#: [id number] Location: [facility] Ordering Phys: Kendall Addison MD Date of Service: 05/05/17 7118 PROCEDURE: CT ABDOMEN AND PELVIS WITH CONTRAST ([id number]) INDICATIONS: marked abd swelling, pain; eval mass vs other abnl TECHNIQUE: After the administration of oral and intravenous contrast, 5 mm thick sections acquired from the diaphragms to the symphysis. 5 mm thick coronal and sagittal reformats were performed. For radiation dose reduction, the following was used : automated exposure control, adjustment of mA and/or kV according to patient size. COMPARISON: None. FINDINGS: Image quality: Excellent. ABDOMEN: Lung bases: Lung bases are clear. Heart size is normal. There is a small hiatal hernia. There is small esophageal bases. Solid organs: The liver has a nodular appearance which may represent cirrhotic transformation. The portal vein measures 2 cm in diameter. The spleen is normal size. Gallbladder is unremarkable. Biliary system is non-dilated. Pancreas enhances normally. No adrenal nodules. Kidneys are normal in size and enhancement, without hydronephrosis. Peritoneum and bowel: Stomach, small bowel, and colon loops are normal in caliber and wall thickness. The appendix is thickwalled and contrast-filled. There are scattered sigmoid diverticula. No evidence for diverticulitis. There is a large amount of low-density abdominopelvic ascites. Nodes and vessels: No retroperitoneal or mesenteric adenopathy. Aorta and inferior vena cava are normal in caliber. Miscellaneous: No ventral hernias. PELVIS: Genitourinary: Bladder wall thickness is normal. Miscellaneous: No inguinal hernias or adenopathy. Bones: No suspicious bony lesions. No vertebral body compression fractures. IMPRESSION: 1. Nodular liver, esophageal varices, enlarged portal vein, and marked abdominopelvic ascites consistent with stigmata of portal hypertension. This finding was discussed with Dr. Addison at 4:25 PM on 05/05/17. 2. Normal appendix. Diverticulosis. No acute diverticulitis. Dictated by: Elizabeth Green M.D. on 05/05/2017 at 16:20 Approved by: Elizabeth Green M.D. on 05/05/2017 at 16:26 Cardiac Echo Impressions Echocardiogram Report Name: ANA ACEVEDO Study Date: 05/07/2017 Height: 67 in Hospital Exam Location: [facility] Weight: 141 lb Gender: Female BSA: 1.7 m2 : 1940 Age: 76 yrs BP: 146/64 mmHg Reason For Study: Congestive Heart Failure Ordering Physician: Performed By: Palma Devries Referring Physician: Radha Sawyer Interpretation Summary The left ventricle is normal in size, wall thickness, and systolic function without any focal wall motion abnormalities. Left ventricular systolic function is normal. The ejection fraction is estimated to be 60-65%. Assessment of diastolic parameters indicates normal left ventricular diastolic function and normal filling pressures. The right ventricle is normal in size, thickness and function. The right ventricular systolic function is normal. The right ventricular systolic pressure is estimated at 33 mmHg assuming a right atrial pressure of 3 mm Hg. There is mild to moderate mitral regurgitation. No other echocardiographic abnormalities seen. Assessment & Plan The patient is a 76yo white female with past medical history of Lalita's admitted with subacute onset of abdominal distension and worsening abdominal pain. Abdominal pain, acute, present at the time of admission. Active - This is concerning for SBP given CT imaging, possibly a/w acute GI bleed, cirrhosis w/ascites and rising white blood cell count - We will continue ceftriaxone and increase dose to 1g q12HR - GI consultation has been obtained and appreciate Dr. Morrow's time and expertise. A diagnostic and therapeutic paracentesis has been ordered for am. GI bleed, acute, present at the time of admission - The patient has normocytic anemia on admission with CT scan concerning for cirrhosis with noted esophageal varices - The patient has guaiac positive stools in ED - We will trend H&H as needed - We will advance diet as tolerated for now - Pantoprazole gtt has been changed to daily by mouth dosing - Octreotide gtt has been discontinued - We will type and screen, threshold to transfuse hgb 7 - GI consult, recs appreciated Normocytic anemia, acute, resident at the time of admission -treat as above -consideration to B12 and folate levels if H&H stable Lower extremity wounds, chronic, present at the time admission. 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 -dressed on admission -reassess following admission -wound care consult -avoid SCDs at this time Disposition: Patient likely to be here another 48-72 hours for continued evaluation and treatment of the above serious conditions. Appreciate GI consultation and will follow recommendations. Discussed with Dr. Morrow again today. I have discussed with patient's brother and [id number] at bedside at length again today and they agree with the above plan. Pain Evaluation: Adequate Pain Control GI Prophylaxis: Proton Pump Inhibitor (pantoprazole gtt) VTE Prophylaxis: SCDs (no SCDs in the setting of lower extremity wounds, heparin contraindicated in the setting of probable GI bleed) VTE Mechanical Devices: Intermittant Pneumatic CD Resuscitation Status: DNR/DNI:Do Not Resuscitate/Intubate (discussed with patient on admission ) Deric Sykes MD May 07, 2017 23:38
[2017-05-08] VITALS (10 sets, daily range): BP systolic 85–172; BP diastolic 37–81; PULSE 91–162; RESP 18–22; O2SAT 94–98
--- NOTE | 2017-05-08 00:49 | NUR ---
Tele per quality assurance monitor chassis pt had a 7 second run of PSVT with rate up to 158. she was asymptomatic, resting comfortably in bed. afterwards tele reported HR back down to 101. notified. no new orders at this time. will continue to monitor.
[2017-05-08 06:34] LABS: BASOPHILS % (AUTO) 0.2 % (0-3); EOSINOPHILS % (AUTO) 0.8 % (0-5); MONOCYTES % (AUTO) 7.9 % (4-12); Mean Corpuscular Hemoglobin 28.5 pg (27.0-35.0); Mean Corpuscular Volume 88.9 fL (81-100); NEUTROPHILS % (AUTO) 82.4 % (40-74); Platelet Count 247 bil/L (150-400)
[2017-05-08 06:42] LABS: Magnesium 1.7 mg/dL (1.6-2.6)
[2017-05-08] MEDS: Pantoprazole 40 mg ER24 Tablet PO SCH (07:27)
[2017-05-08] MEDS: Lactulose 20 Gm/30 mL 30 mL Syrup PO SCH ×3 (09:25→20:34)
[2017-05-08] MEDS: cefTRIAXone Inj 1,000 MG in Dextrose 5% Minibag Plus 50 ML IV SCH ×2 (09:25→20:34)
[2017-05-08] MEDS: 0.9% Sodium Chloride 1,000 ML IV SCH (09:25)
[2017-05-08] MEDS ORDERED: Magnesium Sulf 4 Gm/100 mL H2O 4 GM in IV Premix 1 EACH IV ONE (09:35)
[2017-05-08] MEDS ORDERED: Diltiazem 5 mg/mL 5 mL Inj IVPUSH ONE (12:15)
--- NOTE | 2017-05-08 12:15 | NUR ---
Tele Per clinical research monitor patient's heart rate in the 140s, asymptomatic, sleeping in bed. MD aware. This was a couple minutes after paracentesis. military technology specialist called again at 1214 to report patient's heart rate in the 170s. Patient in bed with eyes closed. When asked if her heart feels like it's racing, patient says it does and she feels a little anxious. Otherwise asymptomatic. Heart sounds are loud and regular, pulse is seen in neck. aware.
--- NOTE | 2017-05-08 12:49 | DRSVH ---
PROCEDURE: US GUIDED PARACENTESIS, PRIMARY ([id number]) INDICATIONS: ASCITES TECHNIQUE: The indications, alternatives, benefits, risks, and complications of the procedure were explained to the patient. Written informed consent was obtained and placed in the chart. The abdomen and pelvis were examined sonographically, and an appropriate site was chosen for paracentesis. The skin was pre pared and draped in the usual sterile fashion, and 1% lidocaine was infiltrated from the skin down th rough the peritoneal surface. A 19-gauge catheter-covered needle was then introduced into the perito vandana space, the catheter was advanced and the needle was withdrawn, and thereafter peritoneal fluid w as withdrawn. The catheter was then removed and a dressing was applied. The fluid was discarded if the clinician did not order diagnostic testing of the fluid. COMPARISON: [facility], US, US ABD DOPPLER, 05/07/2017, 8:58. FINDINGS: Access site: Lower central abdomen Needle: One-Step centesis catheter with introducer needle. Fluid volume and description: 150 cc light yellow fluid Fluid sent for diagnostic testing: Yes Medications: 1% lidocaine for local anaesthesia. Complications: None. IMPRESSION: Successful ultrasound-guided paracentesis. Dictated by: Eugenio Sandra M.D. on 05/08/2017 at 12:47 Approved by: Eugenio Sandra M.D. on 05/08/2017 at 12:47
--- NOTE | 2017-05-08 13:47 | NUR ---
Diltiazem ordered diltiazem IVP for patient's heart rate that was in the 170s per mental telepathist. Patient placed on MP30, telemetry in place and certified performance technologist notified, BP taken prior to IVP, patient asymptomatic at time. Medication administered at 1239. Heart rate between 130-140s after IVP. notified and order for PO Diltiazem and given to patient at 1307. operations and maintenance technican called this RN about heart rate in the 180s and then jumping between 90s and 160s at about 1330. laboratory technical specialist did state the patient was in sinus rhythm at times. notified. At this time patient's heart rate is 1352. Continuing to monitor patient. Telemetry and MP30 in place.
--- NOTE | 2017-05-08 14:59 | PCM.PHAPRO ---
Progress Warfarin Management by Pharmacy: -Indication: new onset of afib -Goal Inr: 2-3 -Home Dose: new start -Drug Interactions: possible with Ceftriaxone -Disease Interactions: cirrhosis -Concurrent Anticoagulation: bridge with Enoxaparin 1mg/kg [id number] until inr therapeutic x 2 days -H/H 09/12.2 Platelets 247 -Inr on 05/06= 0.99 -Plan: will initiate with warfarin 2.5mg this evening and follow closely due to hx of gi bleed and cirrhosis serial inr's have been ordered Lita Vergara [facility] May 08, 2017 14:59
--- NOTE | 2017-05-08 15:40 | NUR ---
Wound Note Wound orders received, no skin issues identified at either leg today.
--- NOTE | 2017-05-08 16:03 | PCM.PNMED ---
Subjective Date of Service May 08, 2017 Subjective Patient has no more abdominal pain. She feels bloated but she is having bowel movements and passing gas. Exam Vital Signs Vital Sign - Last Date Time Temp Pulse Resp B/P Pulse Ox O2 Delivery O2 Flow Rate FiO2 05/08/17 14:06 121 85/47 05/08/17 11:08 36.6 18 95 Room Air 05/05/17 16:54 Intake and Output 05/07/17 05/07/17 05/08/17 Cumulative From/Thru 15:00 23:00 07:00 05/05/17 12:32 - 05/08/17 06:23 Intake Total 1343 ml 1127 ml 5101 ml Output Total 700 ml 650 ml 3250 ml Balance 643 ml 477 ml 1851 ml Intake Oral 837 ml 375 ml 1612 ml IV Total 506 ml 752 ml 3489 ml Output Urine Total 700 ml 500 ml 2900 ml Stool Total 150 ml 350 ml # Voids 2 2 # Bowel Movements 1 2 1 6 Exam Patient is alert and comfortable. Head and neck no icterus Lungs clear Cardia vascular regular rate and rhythm normal S1-S2 Abdomen soft nontender moderately distended with normoactive bowel sounds Extremities no pitting edema at the ankles Skin shows no jaundice. Lab and Diagnostics Result Diagram: 05/08/1703 05/08/1703 X-Rays, CTs and MRIs Patient Name: ANA ACEVEDO MR#: [id number] Location: [facility] [place] Ordering Phys: Kendall Addison MD Date of Service: 05/05/17 1429 PROCEDURE: CT ABDOMEN AND PELVIS WITH CONTRAST ([id number]) INDICATIONS: marked abd swelling, pain; eval mass vs other abnl TECHNIQUE: After the administration of oral and intravenous contrast, 5 mm thick sections acquired from the diaphragms to the symphysis. 5 mm thick coronal and sagittal reformats were performed. For radiation dose reduction, the following was used : automated exposure control, adjustment of mA and/or kV according to patient size. COMPARISON: None. FINDINGS: Image quality: Excellent. ABDOMEN: Lung bases: Lung bases are clear. Heart size is normal. There is a small hiatal hernia. There is small esophageal bases. Solid organs: The liver has a nodular appearance which may represent cirrhotic transformation. The portal vein measures 2 cm in diameter. The spleen is normal size. Gallbladder is unremarkable. Biliary system is non-dilated. Pancreas enhances normally. No adrenal nodules. Kidneys are normal in size and enhancement, without hydronephrosis. Peritoneum and bowel: Stomach, small bowel, and colon loops are normal in caliber and wall thickness. The appendix is thickwalled and contrast-filled. There are scattered sigmoid diverticula. No evidence for diverticulitis. There is a large amount of low-density abdominopelvic ascites. Nodes and vessels: No retroperitoneal or mesenteric adenopathy. Aorta and inferior vena cava are normal in caliber. Miscellaneous: No ventral hernias. PELVIS: Genitourinary: Bladder wall thickness is normal. Miscellaneous: No inguinal hernias or adenopathy. Bones: No suspicious bony lesions. No vertebral body compression fractures. IMPRESSION: 1. Nodular liver, esophageal varices, enlarged portal vein, and marked abdominopelvic ascites consistent with stigmata of portal hypertension. This finding was discussed with Dr. Addison at 4:25 PM on 05/05/17. 2. Normal appendix. Diverticulosis. No acute diverticulitis. Dictated by: Elizabeth Green M.D. on 05/05/2017 at 16:20 Approved by: Elizabeth Green M.D. on 05/05/2017 at 16:26 Cardiac Echo Impressions Echocardiogram Report Name: ANA ACEVEDO Study Date: 05/07/2017 Height: 67 in Hospital Exam Location: [facility] Weight: 141 lb Gender: Female BSA: 1.7 m2 : 1940 Age: 76 yrs BP: 146/64 mmHg Reason For Study: Congestive Heart Failure Ordering Physician: Performed By: Palma Devries Referring Physician: Radha Sawyer Interpretation Summary The left ventricle is normal in size, wall thickness, and systolic function without any focal wall motion abnormalities. Left ventricular systolic function is normal. The ejection fraction is estimated to be 60-65%. Assessment of diastolic parameters indicates normal left ventricular diastolic function and normal filling pressures. The right ventricle is normal in size, thickness and function. The right ventricular systolic function is normal. The right ventricular systolic pressure is estimated at 33 mmHg assuming a right atrial pressure of 3 mm Hg. There is mild to moderate mitral regurgitation. No other echocardiographic abnormalities seen. Assessment & Plan This is a 76-year-old lady with what appears to be portal hypertension. Albumin is low; however she has normal platelets and she is overall a poor historian. 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 The only records in our system on an outpatient basis is in 2013 which showed that she was seen once for numbness and she has a history of peripheral neuropathy. She takes fish oil, naproxen, Coenzyme Q at that time, and this was in 2013. In 2014, blood test was done, which showed hemoglobin 13.2, normal platelets, sed rate was elevated at 77, and LFTs are normal with albumin being 4.1. But, based on the CT scan, there seems to be definitely evidence of ascites with cirrhosis. Echocardiogram showing no right-sided failure or left-sided failure. Ultrasound reviewed. Portal vein was dilated. No clear evidence of portal vein thrombosis. Ascites analysis pending. Again neurologically, found that she has underlying dementia. Again minimal evidence of hepatic encephalopathy. Ascites new-onset. Still waiting for ascites tap and analysis with's cell count with differential total protein and albumin. Once we confirm the fact the ascites is from the liver, consider Lasix and spironolactone. Patient is already on antibiotics for SBP. Awaiting for alpha-fetoprotein level. There is minimal evidence of GI bleeding. H&H stable. GI Prophylaxis: Proton Pump Inhibitor (pantoprazole gtt) VTE Prophylaxis: SCDs (no SCDs in the setting of lower extremity wounds, heparin contraindicated in the setting of probable GI bleed) VTE Mechanical Devices: Intermittant Pneumatic CD Resuscitation Status: DNR/DNI:Do Not Resuscitate/Intubate (discussed with patient on admission ) Chad Morrow MD May 08, 2017 15:05
--- NOTE | 2017-05-08 17:04 | DRSVH ---
PROCEDURE: X-RAY CERVICAL SPINE, LATERAL FLEXION AND EXTENSION, 3 VIEWS INDICATIONS: Numbness in the 4th and 5th fingers of both hands TECHNIQUE: 3 views of the cervical spine were acquired. COMPARISON: None. FINDINGS: Bones: Cervical lordosis is maintained. No fractures or dislocations to the C7 level. No suspicious bony lesions. There is limited range of motion between neutral and extension, straightening of cervi kailyn lordosis in flexion but no actual flexion of the spine beyond that. Degenerative disc disease is associated with slight retrolisthesis at the C5-6 level. Fat malalignment is stable throughout the ra nge of motion. There is also mild laxity at the C2-3 and C3-4 levels where both neutral and extension views show 2 mm of retrolisthesis but the flexion view shows 2 mm of anterolisthesis Soft tissues: Prevertebral soft tissues are normal in thickness. IMPRESSION: 1. Limited range of motion in flexion. 2. Degenerative disc disease and fixed retrolisthesis C5-6. 3. Ligamentous laxity at C2-3 and C3-4 with approximately 4 mm of total movement at both levels. Dictated by: Josué Sheldon M.D. on 05/08/2017 at 16:56 Approved by: Josué Sheldon M.D. on 05/08/2017 at 17:02
[2017-05-08 17:10] LABS: BFWBC 405 /mm3; MONOCYTES,BODY FLUID 64 %; OTHER CELLS,BODY FLUID 10
[2017-05-09] VITALS (12 sets, daily range): BP systolic 103–131; BP diastolic 42–69; PULSE 90–98; RESP 14–28; O2SAT 93–98
--- NOTE | 2017-05-09 00:34 | PCM.PNMED ---
Subjective Date of Service May 08, 2017 Subjective The patient is complaining of numbness of the fourth and fifth fingers of her right and left hand. She tires very easily. She has no chest pain and no new shortness of breath. He tolerated the paracentesis well. Exam Vital Signs Vital Sign - Last Date Time Temp Pulse Resp B/P Pulse Ox O2 Delivery O2 Flow Rate FiO2 05/08/17 20:39 36.4 101 18 132/67 94 Room Air 05/05/17 16:54 Intake and Output 05/08/17 05/08/17 05/09/17 Cumulative From/Thru 15:00 23:00 07:00 05/05/17 12:32 - 05/08/17 18:31 Intake Total 461 ml 5562 ml Output Total 3250 ml Balance 461 ml 2312 ml Intake Oral 1612 ml IV Total 461 ml 3950 ml Output Urine Total 2900 ml Stool Total 350 ml # Voids 2 # Bowel Movements 6 Exam General: Patient is comfortable lying supine in bed. She appears comfortable. HEENT: Head is atraumatic and normocephalic. Eyes: Pupils are equally round and reactive to light and accommodation. Extraocular muscles are intact. Sclera are white, anicteric. Subconjunctival mucosa is pink. Ears and nose are unremarkable. Oropharynx: There is no mucosal lesions, there is no thrush, there is no pharyngitis. Neck: Is supple, there are a few small pea-sized nodes which did not notice on previous exam. However, the patient states these have been there all along she just did not point them out to me as they are difficult to detect. She has had these for an extended period time and they have been evaluated in the past. He has no other masses or tenderness. Chest: Is clear to auscultation and percussion. There are no rales, rhonchi, wheezes or rubs. Heart: Rate, rhythm is regular. There is no murmur, rub or gallop. Abdomen: Good bowel sounds are present. Abdomen is obese, soft, nontender, no organomegaly or masses were appreciated. However, patient has a fluid wave shift. Extremities: Are symmetrical and well perfused. There is evidence of brawny edema, there is no cellulitis, no rash. 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 Neurologic: There are no focal neurological deficits. Cranial nerves II through XII are intact. There are no sensory or motor deficits. The patient is confused, however slightly less so today and more alert.. She exhibits no asterixis. Psychiatric: Patients mood is calm and shows no sign of agitation. However, patient is confused. Genital: Deferred Rectal: Deferred Lab and Diagnostics Result Diagram: 05/08/1760205/08/17602 Microbiology Name: ANA ACEVEDO Age/Sex: 76/F Attend Dr: Deric Sykes Acct: [id number] Unit: [id number] Status: ADM IN Location: [facility] [place] 1029-1 Re05/05/17 Disch: Specimen: [id number] Collected: 05/06/17 Status: RES Req#: [id number] Received: 05/06/17 Source: URINE CC Sp Desc : Subm Dr: Chad Morrow MD Ordered: URINE CULT Comments: Collected by Nurse/Unit? Y/N Y Procedure Result Verified Site Microbiology ROBBIN CULT URINE Preliminary 05/08/17-1033 PRELIMINARY ID STREP, PROBABLE ENTEROCOCCI ID AND SENS TO FOLLOW COLONY COUNT/QUANTITY 10-25,000 CFU/ml X-Rays, CTs and MRIs Patient Name: ANA ACEVEDO MR#: [id number] Location: [facility] Ordering Phys: Kendall Addison MD Date of Service: 05/05/171428 PROCEDURE: CT ABDOMEN AND PELVIS WITH CONTRAST ([id number]) INDICATIONS: marked abd swelling, pain; eval mass vs other abnl TECHNIQUE: After the administration of oral and intravenous contrast, 5 mm thick sections acquired from the diaphragms to the symphysis. 5 mm thick coronal and sagittal reformats were performed. For radiation dose reduction, the following was used : automated exposure control, adjustment of mA and/or kV according to patient size. COMPARISON: None. FINDINGS: Image quality: Excellent. ABDOMEN: Lung bases: Lung bases are clear. Heart size is normal. There is a small hiatal hernia. There is small esophageal bases. Solid organs: The liver has a nodular appearance which may represent cirrhotic transformation. The portal vein measures 2 cm in diameter. The spleen is normal size. Gallbladder is unremarkable. Biliary system is non-dilated. Pancreas enhances normally. No adrenal nodules. Kidneys are normal in size and enhancement, without hydronephrosis. Peritoneum and bowel: Stomach, small bowel, and colon loops are normal in caliber and wall thickness. The appendix is thickwalled and contrast-filled. There are scattered sigmoid diverticula. No evidence for diverticulitis. There is a large amount of low-density abdominopelvic ascites. Nodes and vessels: No retroperitoneal or mesenteric adenopathy. Aorta and inferior vena cava are normal in caliber. Miscellaneous: No ventral hernias. PELVIS: Genitourinary: Bladder wall thickness is normal. Miscellaneous: No inguinal hernias or adenopathy. Bones: No suspicious bony lesions. No vertebral body compression fractures. IMPRESSION: 1. Nodular liver, esophageal varices, enlarged portal vein, and marked abdominopelvic ascites consistent with stigmata of portal hypertension. This finding was discussed with Dr. Addison at 4:25 PM on 05/05/17. 2. Normal appendix. Diverticulosis. No acute diverticulitis. Dictated by: Elizabeth Green M.D. on 05/05/2017 at 16:20 Approved by: Elizabeth Green M.D. on 05/05/2017 at 16:26 12-lead ECG Atrial fibrillation with rapid ventricular response with a rate of over 170 bpm Cardiac Echo Impressions Echocardiogram Report Name: ANA ACEVEDO Study Date: 05/07/2017 Height: 67 in Hospital Exam Location: [facility] Weight: 141 lb Gender: Female BSA: 1.7 m2 : 1940 Age: 76 yrs BP: 146/64 mmHg Reason For Study: Congestive Heart Failure Ordering Physician: Performed By: Palma Devries Referring Physician: Radha Sawyer Interpretation Summary The left ventricle is normal in size, wall thickness, and systolic function without any focal wall motion abnormalities. Left ventricular systolic function is normal. The ejection fraction is estimated to be 60-65%. Assessment of diastolic parameters indicates normal left ventricular diastolic function and normal filling pressures. The right ventricle is normal in size, thickness and function. The right ventricular systolic function is normal. The right ventricular systolic pressure is estimated at 33 mmHg assuming a right atrial pressure of 3 mm Hg. There is mild to moderate mitral regurgitation. No other echocardiographic abnormalities seen. Assessment & Plan The patient is a 76yo white female with past medical history of Lalita's admitted with subacute onset of abdominal distension and worsening abdominal pain. Abdominal pain, acute, present at the time of admission. Active - This is concerning for SBP given CT imaging, possibly a/w acute GI bleed, cirrhosis w/ascites and rising white blood cell count - We will continue ceftriaxone and increase dose to 1g q12HR - GI consultation has been obtained and appreciate Dr. Morrow's time and expertise. - A diagnostic and therapeutic paracentesis has been performed this a.m. and we are awaiting the results.. GI bleed, acute, present at the time of admission. Appears to be resolved - The patient has normocytic anemia on admission with CT scan concerning for cirrhosis with noted esophageal varices - The patient has guaiac positive stools in ED - We will trend H&H as needed. For now hemoglobin appears to be stable. - We will advance diet as tolerated for now - Pantoprazole gtt has been changed to daily by mouth dosing - Octreotide gtt has been discontinued - We will type and screen, threshold to transfuse hgb 7 - GI consult, recs appreciated Normocytic anemia, acute, resident at the time of admission -treat as above -consideration to B12 and folate levels if H&H stable Lower extremity wounds, chronic, present at the time admission. 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 This apparently was diagnosed by a linux architect. -dressed on admission -reassess following admission -wound care consult -avoid SCDs at this time Disposition: Patient likely to be here another 48-72 hours for continued evaluation and treatment of the above serious conditions. Appreciate GI consultation and will follow recommendations. Discussed with Dr. Morrow again today. I have discussed with patient's brother and [id number] at bedside at length again today and they agree with the above plan. Pain Evaluation: Adequate Pain Control GI Prophylaxis: Proton Pump Inhibitor (pantoprazole gtt) VTE Prophylaxis: Theraputic Anticoag with Warfarin, SCDs (no SCDs in the setting of lower extremity wounds, heparin contraindicated in the setting of probable GI bleed) VTE Mechanical Devices: Intermittant Pneumatic CD Resuscitation Status: DNR/DNI:Do Not Resuscitate/Intubate (discussed with patient on admission ) Deric Sykes MD May 09, 2017 00:34
--- NOTE | 2017-05-09 01:00 | NUR ---
assumed care at 2230 from Tim CALIX
[2017-05-09 02:09] LABS: Hepatitis A Antibody IgM Negative (Negative)
[2017-05-09] MEDS: 0.9% Sodium Chloride 1,000 ML IV SCH (04:15)
[2017-05-09 06:33] LABS: BASOPHILS % (AUTO) 0.2 % (0-3); EOSINOPHILS % (AUTO) 1.4 % (0-5); MONOCYTES % (AUTO) 6.6 % (4-12); Mean Corpuscular Hemoglobin 28.2 pg (27.0-35.0); Mean Corpuscular Volume 87.2 fL (81-100); NEUTROPHILS % (AUTO) 80.6 % (40-74); Platelet Count 230 bil/L (150-400)
[2017-05-09] MEDS: Pantoprazole 40 mg ER24 Tablet PO SCH (06:39)
[2017-05-09 06:53] LABS: INR 1.06 ratio; Magnesium 2.2 mg/dL (1.6-2.6)
[2017-05-09 07:13] LABS: Alpha-1-Antitrypsin, Serum 166 mg/dL (90-200)
--- NOTE | 2017-05-09 07:32 | NUR ---
HR Pt HR controlled with cardizem, SR 70's per tele monitor. Pt had 0 c/o pain. Continued to c/o about hand neuropathy, aware. Pt slept well. Care continues
[2017-05-09] MEDS: cefTRIAXone Inj 1,000 MG in Dextrose 5% Minibag Plus 50 ML IV SCH ×2 (08:11→20:21)
[2017-05-09] MEDS: Lactulose 20 Gm/30 mL 30 mL Syrup PO SCH ×3 (08:11→20:20)
--- NOTE | 2017-05-09 11:09 | NUR ---
ЮЛИЯ: Patient unable to receive ЮЛИЯ at this time asked RN [facility] to follow up with [facility]
[2017-05-09] MEDS: Potassium Chloride 20 mEq SR Tablet PO SCH ×2 (11:16→20:21)
--- NOTE | 2017-05-09 12:07 | PCM.PHAPRO ---
Progress Warfarin Management by Pharmacy: -Indication: new onset of afib -Goal Inr: 2-3 -Home Dose: new start -Drug Interactions: possible with Ceftriaxone -Disease Interactions: cirrhosis -Concurrent Anticoagulation: bridge with Enoxaparin 1mg/kg [id number] until inr therapeutic x 2 days -H/H 09/12.2 Platelets 230 -Coagulation Trends: May 09-Apr na 1.06 #VALUE! 2.5MG 2.5MG -Plan: day 2 of warfarin management for new diagnosis of afib. will continue with warfarin 2.5mg this evening and follow May 08, 2017 14:59 Lita Vergara vidhi May 09, 2017 12:07
[2017-05-09] MEDS ORDERED: Propofol 10,000 mCg/mL 20 mL Inj ONE (12:46)
--- NOTE | 2017-05-09 12:52 | NUR ---
Social Work: Continued Discharge Planning D: EMR reviewed. Pt is on day 4 of hospitalization. JOYCELYN met with pt and family at bedside to discuss SNF after receiving MD order for SNF. JOYCELYN provided choice list. Family chose [facility] in [place]. JOYCELYN requested JOYCELYN BARRAZA to place referral to [facility] in [place]. Family is agreeable and JOYCELYN will update family once SNF in [place] reaches decision to accept pt or not. A: Pt for whom a SNF via cabulance has been deemed medically necessary. P: JOYCELYN BARRAZA placed referral to [facility] in [place]. SW to update family/MD once SNF reaches decision to accept pt or not. SCOTT Crisostomo
--- NOTE | 2017-05-09 13:00 | NUR ---
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
--- NOTE | 2017-05-09 15:39 | NUR ---
NUTRITION ASSESSMENT: ASSESS: 76 YO female admitted for GI bleed, cirrhosis. Pt is s/p diagnostic paracentesis today. Pt with some confusion per notes, likely due to dementia. PMHx: Lalita's LABS: Reviewed. Alb 2.0. MEDS: Reviewed. GI: BM x 2 (05/09) CURRENT WT: 63.5 kg. Admit wt: 59.7 kg. DIET: Soft. PO 50-100% of meals. EST. NEEDS: 8096-9895 kcals (25-35 kcals/kg BW), 70-90 g protein (1.2-1.5 g/kg BW) NUTRITION DIAGNOSIS: 1.) Increased nutrient needs related to increased demand for nutrients as evidenced by chronic liver disease. NUTRITION INTERVENTION: 1.) Current diet should provide adequate kcals and protein to meet pt est. needs. 2.) Consider adding supplements if needed. MONITOR / EVAL: PO intake, labs, nutritional status. Follow per moderate nutritional risk guidelines.
--- NOTE | 2017-05-09 16:21 | NUR ---
To ENDO Patient to Endo on gurney, room air, and saline locked. Report given to Elvin RN this AM. Telemetry notified.
--- NOTE | 2017-05-09 16:51 | PCM.HPANE ---
Patient Data Surgeon Admitting Provider:Deric Sykes MD Attending Provider:Deric Sykes MD Primary Care Physician:Emmanuel Palomino MD Other Provider: Reason for Visit Gi Bleed, Cirrhosis GI BLEED, CIRRHOSIS Ht/WT & BMI Height (Feet): 5 Height (Inches): 7.00 Weight (Kilograms): 63.500 Body Mass Index 21.00 Allergies Coded Allergies: No Known Allergies (Unverified , 05/05/17) Past Anesthesia History Anesthesia History: Denies:: Anesthesia Reactions Diabetes History Hx Diabetes?: No MRSA MRSA: No Medications Hypertension Medication: No Home Meds Incl Beta Amos: No Reported Medications Carboxymethylcellulose Sodium (Refresh Tears)15 Ml Drops1 Drop BOTH_EYES TID PRN For Eye Irritation 05/05/17 Multivitamin (Multivitamins)1 Each Capsule1 Each PO DAILY 05/05/17 Naproxen Na-Diphenhydramin HCl (Aleve Pm Caplet)220 Mg-25 Mg Tablet1 Each PO HS PRN Insomnia 05/05/17 History History of ENT Problems?: No HEENT History: Denies:: Abnormal Airway Cataracts Difficult Intubation Dysphagia Glaucoma Hearing Problem Sinus Problem TMJ Denture Type: None Teeth Condition: Within Normal Limits Hx of Heart Problems?: No Cardiovascular History: Denies:: AICD Abdominal Aortic Aneurism Atrial Fibrillation Cardiac Surgery Chest Pain Congestive Heart Failure Coronary Artery Disease Edema Heart Murmur Hypertension Irregular Heartbeat Pacemaker Peripheral Vascular Rheumatic Fever Thrombophlebitis Valvular Heart Disease Hx of Respiratory Problem?: No Respiratory History: Denies:: Asthma COPD Chest Surgery Cough Dyspnea Emphysema Hemoptysis Oxygen Administration Pneumonia Pulmonary Embolism Tuberculosis Use of C-PAP Machine Use of Inhalers / NEBS Hx Neurologic Problems?: Yes Neurological History: Positive for:: Dementia (a little bit of memory problem) Headaches (as a tenager) Other Neurological Pertinent: Dementia Hx of GI Problems?: Yes Other GI Pertinent History: recent abdominal distension Hx of Problems?: No Female Hx: Denies:: Currently Endometriosis Pelvic Inflammatory Problems with Breasts? Hx Musculoskeletal Problems?: Yes Hx of Psycho/Social Problems?: No Hx Surgeries?: Yes (hysterectomy, knee sry, tonsillectomy, appendectomy, colonoscopy) Hx Any Other Health Problems?: Yes Other History: Denies:: Cancer Hospitalization Thyroid Disease History Blood Transfusions: Positive for:: Accept Blood Products? 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 Hx Alcohol Use: Yes (occasional glass of wine)Hx Substance Use: No Smoking Status: Never Smoker Stop/Bang Treated for Sleep Apnea?: No Do You Have a CPAP Machine?: No S-Snoring: Do You Snore Loudly: No T-Tired: feel tired, fatigued: No O-Obsered: Observed not breath: No P-Blood Pressure: treated: No B- Body Mass Index > 35 kg/m2: No A- Age over 50: Yes N- Neck Large Circumference: No G- Gender Male: No ALBA Total Score: 1 ALBA Risk Assessment: Low Risk, <3 Yes Risk Assessment Category Category 1A: Patient has history of documented sleep apnea, and HAS NOT received any narcotic, sedative or anesthesia administration during this stay. Category 1B: Patient has history of documented sleep apnea, and HAS received any narcotic , sedative or anesthesia administration during this stay Category 2: Patient has SUSPECTED Obstructive Sleep Apnea, and HAS received any narcotic , sedative or anesthesia administration during this stay. Category 3: Patient has SUSPECTED Obstructive Sleep Apnea and HAS NOT received narcotic, sedative or anesthesia administration during this stay. Category 4: Outpatient in Procedural Areas with known sleep apnea or who screen positive for High Risk via the STOP/BANG questionnaire. Exam Exam Vital Signs Vital Signs Date Time Temp Pulse Resp B/P Pulse Ox O2 Delivery O2 Flow Rate FiO2 05/09/17 16:30 98 14 116/62 94 Room Air 05/09/17 13:37 36.4 95 16 119/61 95 Room Air 05/09/17 10:44 93 05/09/17 09:33 36.4 90 24 131/63 93 Room Air General Appearance: Alert, Cooperative HEENT/AIRWAY: MP 2 Lungs: Clear to Auscultation, Normal Air Movement Heart: Exam Unremarkable, Regular Rate/Rhythm, No Murmurs/Rubs/Gallops Meds/Labs/Diagnostics Admission Meds Current Medications Warfarin Sodium (Coumadin) 2.5 mg DAILY@17 PO Last administered on 05/08/17 17 :40; Start 05/08/17 at 17:00; Stop 05/08/17 at 17:01; Status DC Diltiazem HCl (Cardizem) 90 mg ACHS PO Last administered on 05/09/17 11:17; Start 05/09/17 at 11:30 Potassium Chloride (K-Dur) 20 meq BID PO Last administered on 05/09/17 11:16; Start 05/09/17 at 09:20 Labs Test 05/05/17 13:20 05/05/17 14:03 05/05/17 15:04 05/06/17 08:00 Lipase 76U/L (13-60) Hold Urine Received (Received) Lactic Acid Level 1.1mmol/L (0.4-2.0) Phosphorus Level 3.4mg/dL (2.5-4.9) Test 05/06/17 21:40 05/07/17 08:20 05/08/17 15:58 05/09/17 06:00 Urine Color Dark yellow (YELLOW) Urine Appearance Slightly cloudy Urine pH 5.0 (5.0-8.0) Urine Specific Lapaz 1.035 (1.003-1.035) Urine Protein Tracemg/dL (NEG,TRACE) Urine Glucose (UA) Negativemg/dL (NEGATIVE) Urine Ketones Negativemg/dL (NEGATIVE) Urine Occult Blood Trace (NEGATIVE) Urine Nitrite Negative (NEGATIVE) Urine Bilirubin Negative (NEGATIVE) Urine Urobilinogen Normalmg/dL (NORMAL) Urine Leukocyte Esterase Negative (NEGATIVE) Urine RBC 3-10/hpf (0-2) Urine WBC 6-10/hpf (0-5) Urine Epithelial Cells Moderate/hpf (NONE-MOD) Urine Crystals None seen (NONE SEEN) Urine Bacteria Moderate/hpf (NONE-FEW) Urine Hyaline Casts None/lpf (NONE) Urine Granular Casts 5-20 (NONE SEEN) Urine Waxy Casts None seen (NONE SEEN) Urine Red Blood Cell Casts None seen (NONE SEEN) Urine White Blood Cell Casts None seen (NONE SEEN) Urine Mucus Present (None Seen) Urine Trichomonas None seen (NONE SEEN) Urine Yeast None (NONE SEEN) Urinalysis Comment Urine Culture Reflexed Not indicated Iron Level 24ug/dL (35-150) Ferritin 185ng/mL (13-150) Twcde-3-Ghmlzmigixi 166mg/dL (90-200) Tumor Marker Alpha Fetoprotein 2.5ng/mL (0.0-8.3) Procalcitonin 0.26ng/mL (0.00-0.08) Hepatitis A IgM Antibody Negative (Negative) Hepatitis A Antibody Total Positive (Negative) Hepatitis C Antibody <0.1s/co ratio (0.0-0.9) Body Fluid Source Peritoneal fluid Body Fluid Color Straw (Clear) Body Fluid Appearance Clear Body Fluid WBC 405/mm3 Body Fluid RBC 435/mm3 Body Fluid Polynuclear WBCs 22% Body Fluid Lymphocytes 4% Body Fluid Monocytes 64% Body Fluid Eosinophils 0% Body Fluid Basophils 0% Body Fluid Total Protein 0.8g/dL Body Fluid Albumin 0.2g/dL (.) White Blood Count 10.2th/mm3 (3.8-10.1) Red Blood Count 3.58mil/mm3 (3.90-5.20) Hemoglobin 10.1g/dL (12.0-15.6) Hematocrit 31.2% (35.0-46.0) Mean Corpuscular Volume 87.2fL (81-100) Mean Corpuscular Hemoglobin 28.2pg (27.0-35.0) Mean Corpuscular Hemoglobin Concent 32.4% (32.0-37.0) Red Cell Distribution Width 16.0% (12.3-15.4) Platelet Count 230bil/L (150-400) Neutrophils (%) (Auto) 80.6% (40-74) Lymphocytes (%) (Auto) 11.0% (14-46) Monocytes (%) (Auto) 6.6% (4-12) Eosinophils (%) (Auto) 1.4% (0-5) Basophils (%) (Auto) 0.2% (0-3) Prothrombin Time 11.4sec (8.1-12.5) Prothromb Time International Ratio 1.06ratio Sodium Level 136mEq/L (134-144) Potassium Level 3.3mEq/L (3.5-5.2) Chloride Level 106mEq/L (97-108) Carbon Dioxide Level 19mmol/L (18-29) Blood Urea Nitrogen 18mg/dL (8-27) Creatinine 0.41mg/dL (0.57-1.00) Estimat Glomerular Filtration Rate 215mL/min (>59) Glucose Level 104mg/dL (60-99) Calcium Level 7.5mg/dL (8.5-10.1) Magnesium Level 2.2mg/dL (1.6-2.6) Total Bilirubin 0.8mg/dL (0.0-1.2) Aspartate Amino Transf (AST/SGOT) 39U/L (0-50) Alanine Aminotransferase (ALT/SGPT) 24U/L (0-32) Alkaline Phosphatase 217U/L (25-165) Total Protein 5.3g/dL (6.4-8.4) Albumin 2.0g/dL (3.4-5.0) Plan Impression Patient chart reviewed, patient interviewed and anesthestic plan with risks, benefits, and alternatives discussed, and informed consent obtained. NPO per Anesth. Guidelines: Yes ASA Physical Status: ASA3 Severe Disease Anesthetic Plan: GA Bene/Risks/Altern/Consents: Yes (consent via brother who is POA) HP Complete Prior to Induction: Yes Fede Chase MD May 09, 2017 16:51
--- NOTE | 2017-05-09 17:15 | PCM.ANEP1 ---
Post Anesthesia PACU Phase 1 Assessment Vital Signs Vital Signs Date Time Temp Pulse Resp B/P Pulse Ox O2 Delivery O2 Flow Rate FiO2 05/09/17 17:13 93 14 104/42 98 Nasal Cannula 2 05/09/17 16:30 98 14 116/62 94 Room Air 05/09/17 13:37 36.4 95 16 119/61 95 Room Air 05/09/17 10:44 93 05/09/17 09:33 36.4 90 24 131/63 93 Room Air Anesthetic Administered: GA Level of Alertness: Sleepy, easy to arouse ELIZONDO's with Equal Strength: Yes Pain: No Nausea or Vomiting: No CV Function & Hydration Stable: Yes Airway Device: Oxygen Delivery: Nasal Cannula Lungs: Clear to Auscultation, Normal Air Movement PACU Phase 2 Assessment Complications: No Follow up Care: N/A Patient Instructions Provided: N/A Fede Chase MD May 09, 2017 17:15
--- NOTE | 2017-05-09 17:16 | PCM.ENDEGD ---
EGD Date of Service: May 09, 2017 Physician Chad Morrow MD Pre Procedure Diagnosis: Anemia Post Procedure Dx & Findings: Esophageal varices esophageal erosion esophagitis portal hypertensive gastropathy gastritis and fundic polyps Procedure Esophagogastroduodenoscopy PROCEDURE IN DETAIL: After proper sedation, Olympus video endoscope was inserted into patient's mouth and esophagus was successfully intubated. Scope introduced esophagus. Esophagus showed normal shiny whitish mucosa consistent with squamous cell component. Z line was at 40 cm from the incisors. Starting the mid esophagus, there were 2 columns of grade 2 varices and 2 columns of grade 1 varices. The Z line was irritated with mild edema and redness. A < 1mm erosion clean-based noted with surrounding inflammation. Scope further advanced to the stomach. The fundus and the body showed snakeskin pattern consistent with moderate portal hypertensive gastropathy. Antrum showed some atrophy and irritation. Patient also had 2 mm and less well fundic polyps. These were distributed in the proximal body and the fundus of the stomach. Cardia fundus body antrum pylorus were all visualized. Retroflexion was done. Stomach was easily inflated and deflatable using air. Scope further advanced to the distal duodenum. Duodenum revealed normal villous structures with normal appearing folds without any mass ulcer erosion. Impression Esophageal varices esophageal erosion esophagitis portal hypertensive gastropathy gastritis and fundic polyps I wish a slow chronic oozing of blood from portal hypertensive gastropathy. Recommendation Continue PPI IV Consider starting propanolol 10 mg she will 2 times a day. However propanolol should be not use when patient has spontaneous bacterial peritonitis. I am not sure if she ever has spontaneously bacterial peritonitis. Cell count with differential was not consistent with SBP. However this was obtained after antibiotics were started. Therefore, I will try her on propranolol 10 by mouth twice a day one day before she goes home. Hold if systolic pressure less than 100 or heart rate less than 55. Hold If she has lightheadedness or dizziness or She has falls. If she does not tolerate it, consider EGD with banding. She also has ascites. If she has refractory ascites, she needs to have banding. We have not medically treated her for ascites, we do not know if she has refractory ascites. But for now, I will try to get her ascites under control with the diet and Lasix and spironolactone if ascites is consistent with hypertension. Albumin of the ascites is pending. She has refractory ascites, she will need banding. Presedation Assessment Risks and Benefits Informed consent was obtained from the patient after all risks and benefits including but not limited to drug reaction, infection, pain, bleeding, perforation, as well as alternatives were discussed. Patient monitoring Continuous pulse oximetry, cardiac monitoring, blood pressure monitoring, IV access, and oxygen at 2L per nasal cannula. Complications There were no periprocedural complications identified. Post Procedure Plan Post Procedure Recommendations 1. Restrict activities today. 2. Resume normal activities in the morning. 3. Resume medications. 4. GERD behavioral modification: - Avoid fatty, acidic, spicy, large meals - Do not lie down after meals - Do not eat or drink anything for at least 2 1/2 hours before going to bed at night - Discontinue tobacco and alcohol - Decrease or avoid caffeine - Avoid chocolate and mints - Decrease weight - Avoid aspirin and non steroidal anti-inflammatory agents (NSAID) such as Aleve, Advil, Mobic, Naproxen, Ibuprofen, etc 5. Add proton pump inhibitor. Take 30 minutes before 1st meal of the day. 6. Patient informed of normal post procedure side effects as bloating, drowsiness, blood streaking in the stool 7. If gastric biopsy reveal H.pylori, continue with appropriate treatment 8. If small bowel biopsy reveals celiac, continue with appropriate treatment 9. Please don't hesitate to call me with any questions Chad Morrow MD May 09, 2017 17:16
--- NOTE | 2017-05-09 18:16 | NUR ---
Back from Endo Patient back from Endo, assisted to bed from [facility], drowsy, given warm blankets. IV saline locked and patient is on room air.
[2017-05-09] MEDS ORDERED: 0.9% Sodium Chloride 0 ML ONE (20:06)
--- NOTE | 2017-05-09 22:58 | PCM.PNMED ---
Subjective Date of Service May 09, 2017 Subjective Patient is now exhibiting asterixis after her endoscopy today. She remains confused. She has no new complaints. Exam Vital Signs Vital Sign - Last Date Time Temp Pulse Resp B/P Pulse Ox O2 Delivery O2 Flow Rate FiO2 05/09/17 20:00 95 05/09/17 19:40 36.7 18 115/55 94 Room Air 05/09/17 17:13 2 Intake and Output 05/08/17 05/08/17 05/09/17 Cumulative From/Thru 15:00 23:00 07:00 05/05/17 12:32 - 05/09/17 05:04 Intake Total 461 ml 200 ml 5762 ml Output Total 750 ml 4000 ml Balance 461 ml -550 ml 1762 ml Intake Oral 200 ml 1812 ml IV Total 461 ml 3950 ml Output Urine Total 300 ml 3200 ml Stool Total 450 ml 800 ml # Voids 2 # Bowel Movements 2 8 Exam General: Patient is comfortable lying supine in bed. She appears comfortable and pleasantly confused. HEENT: Head is atraumatic and normocephalic. Eyes: Pupils are equally round and reactive to light and accommodation. Extraocular muscles are intact. Sclera are white, anicteric. Subconjunctival mucosa is pink. Ears and nose are unremarkable. Oropharynx: There is no mucosal lesions, there is no thrush, there is no pharyngitis. Neck: Is supple, there are a few small pea-sized nodes. However, the patient states these have been there all along she just did not point them out to me as they are difficult to detect. She has had these for an extended period time and they have been evaluated in the past. He has no other masses or tenderness. Chest: Is clear to auscultation and percussion. There are no rales, rhonchi, wheezes or rubs. Heart: Rate, rhythm is regular. There is no murmur, rub or gallop. Abdomen: Good bowel sounds are present. Abdomen is obese, soft, nontender, no organomegaly or masses were appreciated. However, patient has a fluid wave shift. Extremities: Are symmetrical and well perfused. There is evidence of brawny edema, there is no cellulitis, no rash. 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 Neurologic: There are no focal neurological deficits. Cranial nerves II through XII are intact. There are no sensory or motor deficits. The patient is confused, however slightly less so today and more alert.. She exhibited asterixis today after her endoscopy witnessed by Dr. Morrow. Psychiatric: Patients mood is calm and shows no sign of agitation. However, patient is confused. Genital: Deferred Rectal: Deferred Lab and Diagnostics Result Diagram: 05/09/1759905/09/17599 Microbiology Name: ANA ACEVEDO Age/Sex: 76/F Attend Dr: Deric Sykes Acct: [id number] Unit: [id number] Status: ADM IN [place] [facility] [place] 1029-1 Re05/05/17 Disch: Specimen: [id number] Collected: 05/06/17 Status: RES Req#: [id number] Received: 05/06/17 Source: URINE CC Sp Desc : Subm Dr: Chad Morrow MD Ordered: URINE CULT Comments: Collected by Nurse/Unit? Y/N Y Procedure Result Verified Site Microbiology ROBBIN CULT URINE Preliminary 05/08/17-1033 PRELIMINARY ID STREP, PROBABLE ENTEROCOCCI ID AND SENS TO FOLLOW COLONY COUNT/QUANTITY 10-25,000 CFU/ml X-Rays, CTs and MRIs Patient Name: ANA ACEVEDO MR#: [id number] Location: [facility] [place] Ordering Phys: Kendall Addison MD Date of Service: 05/05/171428 PROCEDURE: CT ABDOMEN AND PELVIS WITH CONTRAST (PNL-7102) INDICATIONS: marked abd swelling, pain; eval mass vs other abnl TECHNIQUE: After the administration of oral and intravenous contrast, 5 mm thick sections acquired from the diaphragms to the symphysis. 5 mm thick coronal and sagittal reformats were performed. For radiation dose reduction, the following was used : automated exposure control, adjustment of mA and/or kV according to patient size. COMPARISON: None. FINDINGS: Image quality: Excellent. ABDOMEN: Lung bases: Lung bases are clear. Heart size is normal. There is a small hiatal hernia. There is small esophageal bases. Solid organs: The liver has a nodular appearance which may represent cirrhotic transformation. The portal vein measures 2 cm in diameter. The spleen is normal size. Gallbladder is unremarkable. Biliary system is non-dilated. Pancreas enhances normally. No adrenal nodules. Kidneys are normal in size and enhancement, without hydronephrosis. Peritoneum and bowel: Stomach, small bowel, and colon loops are normal in caliber and wall thickness. The appendix is thickwalled and contrast-filled. There are scattered sigmoid diverticula. No evidence for diverticulitis. There is a large amount of low-density abdominopelvic ascites. Nodes and vessels: No retroperitoneal or mesenteric adenopathy. Aorta and inferior vena cava are normal in caliber. Miscellaneous: No ventral hernias. PELVIS: Genitourinary: Bladder wall thickness is normal. Miscellaneous: No inguinal hernias or adenopathy. Bones: No suspicious bony lesions. No vertebral body compression fractures. IMPRESSION: 1. Nodular liver, esophageal varices, enlarged portal vein, and marked abdominopelvic ascites consistent with stigmata of portal hypertension. This finding was discussed with Dr. Addison at 4:25 PM on 05/05/17. 2. Normal appendix. Diverticulosis. No acute diverticulitis. Dictated by: Elizabeth Green M.D. on 05/05/2017 at 16:20 Approved by: Elizabeth Green M.D. on 05/05/2017 at 16:26 12-lead ECG Atrial fibrillation with rapid ventricular response with a rate of over 170 bpm Cardiac Echo Impressions Echocardiogram Report Name: ANA ACEVEDO Study Date: 05/07/2017 Height: 67 in Hospital Exam Location: [facility] Weight: 141 lb Gender: Female BSA: 1.7 m2 : 1940 Age: 76 yrs BP: 146/64 mmHg Reason For Study: Congestive Heart Failure Ordering Physician: Performed By: Palma Devries Referring Physician: Radha Sawyer Interpretation Summary The left ventricle is normal in size, wall thickness, and systolic function without any focal wall motion abnormalities. Left ventricular systolic function is normal. The ejection fraction is estimated to be 60-65%. Assessment of diastolic parameters indicates normal left ventricular diastolic function and normal filling pressures. The right ventricle is normal in size, thickness and function. The right ventricular systolic function is normal. The right ventricular systolic pressure is estimated at 33 mmHg assuming a right atrial pressure of 3 mm Hg. There is mild to moderate mitral regurgitation. No other echocardiographic abnormalities seen. Assessment & Plan The patient is a 76yo white female with past medical history of Lalita's admitted with subacute onset of abdominal distension and worsening abdominal pain. Abdominal pain, acute, present at the time of admission. Active - This is concerning for SBP given CT imaging, possibly a/w acute GI bleed, cirrhosis w/ascites and rising white blood cell count - We will continue ceftriaxone and increase dose to 1g q12HR - GI consultation has been obtained and appreciate Dr. Morrow's time and expertise. - A diagnostic and therapeutic paracentesis has been performed. Cultures were not performed as patient was already on antibiotics. GI bleed, acute, present at the time of admission. Appears to be resolved. - The patient has normocytic anemia on admission with CT scan concerning for cirrhosis with noted esophageal varices - The patient has guaiac positive stools in ED - We will trend H&H as needed. For now hemoglobin appears to be stable. - We will advance diet as tolerated for now - Pantoprazole gtt has been changed to daily by mouth dosing - Octreotide gtt has been discontinued - We will type and screen, threshold to transfuse hgb 7 - GI consult, recs appreciated. Patient went for a diagnostic EGD today by Dr. Morrow and was found to have esophageal varices Normocytic anemia, acute, resident at the time of admission -treat as above -consideration to B12 and folate levels if H&H stable Lower extremity wounds, chronic, present at the time admission. 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 This apparently was diagnosed by a torch straightener. -dressed on admission -reassess following admission -wound care consult -avoid SCDs at this time Disposition: Patient likely to be here another 48-72 hours for continued evaluation and treatment of the above serious conditions. Appreciate GI consultation and will follow recommendations. Discussed with Dr. Morrow again today. I have discussed with patient's brother and [id number] at bedside at length again today and they agree with the above plan. They also would like patient placed in a rehabilitation facility or [place] [facility] facility after discharge so the patient may reach a stable condition prior to them moving her back to [place]. Pain Evaluation: Adequate Pain Control GI Prophylaxis: Proton Pump Inhibitor (pantoprazole gtt) VTE Prophylaxis: Theraputic Anticoag with Warfarin, SCDs (no SCDs in the setting of lower extremity wounds, heparin contraindicated in the setting of probable GI bleed) VTE Mechanical Devices: Intermittant Pneumatic CD Resuscitation Status: DNR/DNI:Do Not Resuscitate/Intubate (discussed with patient on admission ) Deric Sykes MD May 09, 2017 22:58
--- NOTE | 2017-05-09 23:23 | NUR ---
Order for I&O cath unnecessary as pt able to void in BSC; dark urine mixed with stool in amount adequate to equal bladder scanned amount.
[2017-05-10] VITALS (8 sets, daily range): BP systolic 126–139; BP diastolic 46–65; PULSE 93–98; RESP 14–20; O2SAT 93–96
--- NOTE | 2017-05-10 04:25 | NUR ---
Mentation Continues to be cooperative with all care, unable to orient to time and length of stay. Observed sleeping most of night. [place] bed alarm remains engaged for safety. Hourly rounding ongoing.
[2017-05-10] MEDS: Pantoprazole 40 mg ER24 Tablet PO SCH (06:01)
[2017-05-10 06:24] LABS: BASOPHILS % (AUTO) 0.4 % (0-3); EOSINOPHILS % (AUTO) 2.3 % (0-5); MONOCYTES % (AUTO) 9.2 % (4-12); Mean Corpuscular Hemoglobin 28.5 pg (27.0-35.0); Mean Corpuscular Volume 87.7 fL (81-100); NEUTROPHILS % (AUTO) 72.8 % (40-74); Platelet Count 240 bil/L (150-400)
[2017-05-10 06:44] LABS: INR 1.05 ratio
--- NOTE | 2017-05-10 08:46 | PCM.PNMED ---
Subjective Date of Service May 10, 2017 Subjective Patient still confused but denies any nausea vomiting abdominal pain. Nursing informs me that she does not like to be moving or be active. I would encourage ambulation. Exam Vital Signs Vital Sign - Last Date Time Temp Pulse Resp B/P Pulse Ox O2 Delivery O2 Flow Rate FiO2 05/10/17 05:17 36.5 93 18 130/63 93 Room Air 05/09/17 17:13 2 Intake and Output 05/09/17 05/09/17 05/10/17 Cumulative From/Thru 15:00 23:00 07:00 05/05/17 12:32 - 05/10/17 06:02 Intake Total 528 ml 455 ml 6745 ml Output Total 1500 ml 5500 ml Balance 528 ml -1045 ml 1245 ml Intake Oral 0 ml 300 ml 2112 ml IV Total 528 ml 155 ml 4633 ml Output Urine Total 3200 ml Stool Total 800 ml Urine/Stool Mix 1500 ml 1500 ml # Voids 0 2 # Bowel Movements 8 Exam Patient is alert and oriented 1. Confused. Head and neck no icterus Lungs clear Cardia vascular regular rate rhythm no murmurs seen Abdomen soft nontender mild distended with normoactive bowel sounds Extremities no pitting edema ankles Skin shows no jaundice Lab and Diagnostics Result Diagram: 05/10/17 0605/10/17 06 Microbiology Name: ANA ACEVEDO Age/Sex: 76/F Attend Dr: Deric Sykes Acct: [id number] Unit: [id number] Status: ADM IN Location: [facility] [place] 1029-1 Re05/05/17 Disch: Specimen: [id number] Collected: 05/06/17 Status: RES Req#: [id number] Received: 05/06/17 Source: URINE CC Sp Desc : Subm Dr: Chad Morrow MD Ordered: URINE CULT Comments: Collected by Nurse/Unit? Y/N Y Procedure Result Verified Site Microbiology ROBBIN CULT URINE Preliminary 05/08/17-1032 PRELIMINARY ID STREP, PROBABLE ENTEROCOCCI ID AND SENS TO FOLLOW COLONY COUNT/QUANTITY 10-25,000 CFU/ml X-Rays, CTs and MRIs Patient Name: ANA ACEVEDO MR#: [id number] Location: [facility] Ordering Phys: Kendall Addison MD Date of Service: 05/05/17 9867 PROCEDURE: CT ABDOMEN AND PELVIS WITH CONTRAST (PNL-7102) INDICATIONS: marked abd swelling, pain; eval mass vs other abnl TECHNIQUE: After the administration of oral and intravenous contrast, 5 mm thick sections acquired from the diaphragms to the symphysis. 5 mm thick coronal and sagittal reformats were performed. For radiation dose reduction, the following was used : automated exposure control, adjustment of mA and/or kV according to patient size. COMPARISON: None. FINDINGS: Image quality: Excellent. ABDOMEN: Lung bases: Lung bases are clear. Heart size is normal. There is a small hiatal hernia. There is small esophageal bases. Solid organs: The liver has a nodular appearance which may represent cirrhotic transformation. The portal vein measures 2 cm in diameter. The spleen is normal size. Gallbladder is unremarkable. Biliary system is non-dilated. Pancreas enhances normally. No adrenal nodules. Kidneys are normal in size and enhancement, without hydronephrosis. Peritoneum and bowel: Stomach, small bowel, and colon loops are normal in caliber and wall thickness. The appendix is thickwalled and contrast-filled. There are scattered sigmoid diverticula. No evidence for diverticulitis. There is a large amount of low-density abdominopelvic ascites. Nodes and vessels: No retroperitoneal or mesenteric adenopathy. Aorta and inferior vena cava are normal in caliber. Miscellaneous: No ventral hernias. PELVIS: Genitourinary: Bladder wall thickness is normal. Miscellaneous: No inguinal hernias or adenopathy. Bones: No suspicious bony lesions. No vertebral body compression fractures. IMPRESSION: 1. Nodular liver, esophageal varices, enlarged portal vein, and marked abdominopelvic ascites consistent with stigmata of portal hypertension. This finding was discussed with Dr. Addison at 4:25 PM on 05/05/17. 2. Normal appendix. Diverticulosis. No acute diverticulitis. Dictated by: Elizabeth Green M.D. on 05/05/2017 at 16:20 Approved by: Elizabeth Green M.D. on 05/05/2017 at 16:26 12-lead ECG Atrial fibrillation with rapid ventricular response with a rate of over 170 bpm Cardiac Echo Impressions Echocardiogram Report Name: ANA ACEVEDO Study Date: 05/07/2017 Height: 67 in Hospital Exam Location: [facility] Weight: 141 lb Gender: Female BSA: 1.7 m2 : 1940 Age: 76 yrs BP: 146/64 mmHg Reason For Study: Congestive Heart Failure Ordering Physician: Performed By: Palma Devries Referring Physician: Radha Sawyer Interpretation Summary The left ventricle is normal in size, wall thickness, and systolic function without any focal wall motion abnormalities. Left ventricular systolic function is normal. The ejection fraction is estimated to be 60-65%. Assessment of diastolic parameters indicates normal left ventricular diastolic function and normal filling pressures. The right ventricle is normal in size, thickness and function. The right ventricular systolic function is normal. The right ventricular systolic pressure is estimated at 33 mmHg assuming a right atrial pressure of 3 mm Hg. There is mild to moderate mitral regurgitation. No other echocardiographic abnormalities seen. Assessment & Plan This is a 76-year-old lady with what appears to be portal hypertension. Albumin is low; however she has normal platelets and she is overall a poor historian. 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 The only records in our system on an outpatient basis is in 2013 which showed that she was seen once for numbness and she has a history of peripheral neuropathy. She takes fish oil, naproxen, Coenzyme Q at that time, and this was in 2013. In 2014, blood test was done, which showed hemoglobin 13.2, normal platelets, sed rate was elevated at 77, and LFTs are normal with albumin being 4.1. But, based on the CT scan, there seems to be definitely evidence of ascites with cirrhosis. Echocardiogram showing no right-sided failure or left-sided failure. Ultrasound reviewed. Portal vein was dilated. No clear evidence of portal vein thrombosis. Liver workup so far revealed that her hepatitis A total is positive. Anti-one of her trypsin level is normal. Ceruloplasmin level was normal. Autoimmune markers are still pending. Hepatitis B and C serologies are still pending. Ascites analysis was done. The total cells were 402 White blood cell and 22% PMNs. Total protein is 0.8 albumin is 0.2.SAAG > 1.1. Therefore the ascites is most consistent with portal hypertension. Echocardiogram did not reveal a right-sided failure. Patient was already taking antibiotics by the time we did this analysis. Unfortunately ascites analysis was done with couple of days of antibiotics.Would like to consider starting propanolol 10 mg 2 times a day. However propanolol should be not use when patient has spontaneous bacterial peritonitis. I am not sure if she ever has spontaneously bacterial peritonitis. Cell count with differential was not consistent with SBP. However this was obtained after antibiotics were started. Therefore, please try her on propranolol 10 by mouth twice a day starting in couple of days. Hold if systolic pressure less than 100 or heart rate less than 55. Hold If she has lightheadedness or dizziness or She has falls. If she does not tolerate it, consider EGD with banding. She also has ascites. If she has refractory ascites, she needs to have banding. We have not medically treated her for ascites, we do not know if she has refractory ascites. Finally, questionable prophylactic antibiotic comes up. Her total protein is less than 1.0 and if she indeed had SBP, she will need prophylactic antibiotics for SBP. At the time of the EGD yesterday, she was on anticoagulation due to A. fib. But she is not on A. fib anymore. Therefore we could not batter yesterday because of the anticoagulation. Since he ascites consistent with portal hypertension, 2 g sodium diet and Lasix and spironolactone. Please start with Lasix 20 mg once a day and spironolactone 50 mg once a day. Continue acid suppression. I will be out of town starting tonight. I have signed off to Dr. Olvera who agree to follow. GI Prophylaxis: Proton Pump Inhibitor (pantoprazole gtt) VTE Prophylaxis: Theraputic Anticoag with Warfarin, SCDs (no SCDs in the setting of lower extremity wounds, heparin contraindicated in the setting of probable GI bleed) VTE Mechanical Devices: Intermittant Pneumatic CD Resuscitation Status: DNR/DNI:Do Not Resuscitate/Intubate (discussed with patient on admission ) Chad Morrow MD May 10, 2017 08:38
--- NOTE | 2017-05-10 10:19 | NUR ---
[facility] has reviewed patient and can clinically meet needs, they will not have bed open today but plan to be able to take patient by end of week. Patient's family member also toured facility and spoke with admissions as well. Updated [facility]
[2017-05-10] MEDS: Lactulose 20 Gm/30 mL 30 mL Syrup PO SCH ×3 (10:32→22:20)
[2017-05-10] MEDS: Potassium Chloride 20 mEq SR Tablet PO SCH ×2 (10:33→22:19)
[2017-05-10] MEDS: cefTRIAXone Inj 1,000 MG in Dextrose 5% Minibag Plus 50 ML IV SCH ×2 (10:33→22:21)
[2017-05-10] MEDS: Multivit-Miner-Folic Acid-Iron Tablet PO SCH (11:20)
--- NOTE | 2017-05-10 11:49 | NUR ---
Social Work: Continued Discharge Planning D: EMR reviewed. Pt is on day 5 of hospitalization. Pt is not medically stable for discharge at this time, anticipate multiple more days of admission. Pt continues to be confused, partly due to dementia and partly from hepatic encephalopathy. Pt received endoscopy yesterday. Per RN, RING MAKING MACHINE OPERATOR was asked to contact pt's SUDEEP Castillo and Pratibhaciara Reyes [phone]. T/C to Pratibha regarding pt's acceptance at [facility] in [place] pending a bed and medical stability. Pratibha agreeable to this. SW discussed the role of SNF and timekeeper supervisor care needs of pt. SW discussed transportation needs to facility at time of discharge. Depending on pt's functional status, pt may transport POV, private pay taxi, private pay wheelchair van (depending on pt's abilities at time of discharge) as it is unlikely that the facility will provide transportation from [facility]. Pratibha agreeable to this and asked to be notified when more is known. JOYCELYN also answered questions about potentially hiring some skilled nurses or physical therapists for continued support at [facility] when pt is medically stable enough to move. All questions answered to stated satisfaction. SW provided contact information to Pratibha and encouraged calls if she had any other questions. Pt to discharge to [facility] in [place], [place]. Paperwork in chart. PASRR in folder. SW will continue to follow. A: Pt for whom a SNF via cabulance has been deemed medically necessary. P: Pt to discharge to [facility] in [place], [place]. Paperwork in chart. PASRR in folder. SW will continue to follow. SCOTT Lilly
--- NOTE | 2017-05-10 13:09 | NUR ---
Weakness/Activity/Family update Patient states she is too weak to ambulate at this time. Attempted to allow patient sit at edge of bed and she did not tolerate well, exhibiting generalized weakness and shortness of breath. Abdomen continues to show increased distention and firmness. Patient states she "can't really take a big, full breath." Reported to MD. Spoke to brother Jonathan this am over phone and updated him on plan of care and described findings of EGD.
--- NOTE | 2017-05-10 13:56 | PATH ---
SURGICAL PATHOLOGY Attending Physician:See Additional MD CASE STATUS: Signed Out PATIENT NAME: ANA ACEVEDO PID: [id number] : 1940 DATE COLLECTED:05/08/2017 00:00 SPECIMEN: Ascitic Fluid CLINICAL HISTORY: Ascites No ICD-10 code given A 76 year old lady who is currently confused and poor historian. FINAL DIAGNOSIS: ABDOMINAL FLUID CYTOLOGY SPECIMEN (CELL BLOCK, THINPREP, AND CYTOSPIN): NEGATIVE FOR MALIGNANT CELLS. CELLS PRESENT INCLUDE REACTIVE-APPEARING MESOTHELIAL CELLS AND LYMPHOCYTES. ICD10 R18.8 GROSS DESCRIPTION: Received fresh on 05/09/2017 is approximately 15 cc clear yellow fluid. Prepared are one cell block, one cytospin, and one ThinPrep slides. vo/hk ICD-9 CODES: CPT CODES: 1: 32341, 67870, 94299 Electronically Signed Out Demian De Anda MD [facility] [address], [place] [address] Technical component performed at [facility], [facility] [address], [place], [address]
--- NOTE | 2017-05-10 23:05 | PCM.PNMED ---
Subjective Date of Service May 10, 2017 Subjective Patient is slightly less confused today. She has no new complaints other than abdominal swelling. Exam Vital Signs Vital Sign - Last Date Time Temp Pulse Resp B/P Pulse Ox O2 Delivery O2 Flow Rate FiO2 05/10/17 22:13 96 139/61 05/10/17 19:43 36.6 18 96 Room Air 05/09/17 17:13 2 Intake and Output 05/09/17 05/09/17 05/10/17 Cumulative From/Thru 15:00 23:00 07:00 05/05/17 12:32 - 05/10/17 06:02 Intake Total 528 ml 455 ml 6745 ml Output Total 1500 ml 5500 ml Balance 528 ml -1045 ml 1245 ml Intake Oral 0 ml 300 ml 2112 ml IV Total 528 ml 155 ml 4633 ml Output Urine Total 3200 ml Stool Total 800 ml Urine/Stool Mix 1500 ml 1500 ml # Voids 0 2 # Bowel Movements 8 Exam General: Patient is comfortable lying supine in bed. She appears to be in no distress and is pleasantly confused. HEENT: Head is atraumatic and normocephalic. Eyes: Pupils are equally round and reactive to light and accommodation. Extraocular muscles are intact. Sclera are white, anicteric. Subconjunctival mucosa is pink. Ears and nose are unremarkable. Oropharynx: There is no mucosal lesions, there is no thrush, there is no pharyngitis. Neck: Is supple, there are a few small pea-sized nodes. However, the patient states these have been there all along she just did not point them out to me as they are difficult to detect. She has had these for an extended period time and they have been evaluated in the past. He has no other masses or tenderness. Chest: Is clear to auscultation and percussion. There are no rales, rhonchi, wheezes or rubs. Heart: Rate, rhythm is regular. There is no murmur, rub or gallop. Abdomen: Good bowel sounds are present. Abdomen is obese, soft, nontender, no organomegaly or masses were appreciated. The patient does have a fluid wave shift. Extremities: Are symmetrical and well perfused. There is evidence of brawny edema, there is no cellulitis, no rash. 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 Neurologic: There are no focal neurological deficits. Cranial nerves II through XII are intact. There are no sensory or motor deficits. The patient is confused, however slightly less so today and more alert.. She exhibited asterixis today after her endoscopy witnessed by Dr. Morrow. Psychiatric: Patients mood is calm and shows no sign of agitation. However, patient is confused. Genital: Deferred Rectal: Deferred Lab and Diagnostics Result Diagram: 05/10/1759905/10/17599 Microbiology Name: ANA ACEVEDO Age/Sex: 76/F Attend Dr: Deric Sykes Acct: [id number] Unit: [id number] Status: ADM IN [place] [facility] [place]29-1 Re05/05/17 Disch: Specimen: [id number] Collected: 05/06/17 Status: RES Req#: [id number] Received: 05/06/17 Source: URINE CC Sp Desc : Subm Dr: Chad Morrow MD Ordered: URINE CULT Comments: Collected by Nurse/Unit? Y/N Y Procedure Result Verified Site Microbiology ROBBIN CULT URINE Preliminary 05/08/17-1033 PRELIMINARY ID STREP, PROBABLE ENTEROCOCCI ID AND SENS TO FOLLOW COLONY COUNT/QUANTITY 10-25,000 CFU/ml X-Rays, CTs and MRIs Patient Name: ANA ACEVEDO MR#: [id number] Location: [facility] Phys: Kendall Addison MD Date of Service: 05/05/171428 PROCEDURE: CT ABDOMEN AND PELVIS WITH CONTRAST (PNL-7102) INDICATIONS: marked abd swelling, pain; eval mass vs other abnl TECHNIQUE: After the administration of oral and intravenous contrast, 5 mm thick sections acquired from the diaphragms to the symphysis. 5 mm thick coronal and sagittal reformats were performed. For radiation dose reduction, the following was used : automated exposure control, adjustment of mA and/or kV according to patient size. COMPARISON: None. FINDINGS: Image quality: Excellent. ABDOMEN: Lung bases: Lung bases are clear. Heart size is normal. There is a small hiatal hernia. There is small esophageal bases. Solid organs: The liver has a nodular appearance which may represent cirrhotic transformation. The portal vein measures 2 cm in diameter. The spleen is normal size. Gallbladder is unremarkable. Biliary system is non-dilated. Pancreas enhances normally. No adrenal nodules. Kidneys are normal in size and enhancement, without hydronephrosis. Peritoneum and bowel: Stomach, small bowel, and colon loops are normal in caliber and wall thickness. The appendix is thickwalled and contrast-filled. There are scattered sigmoid diverticula. No evidence for diverticulitis. There is a large amount of low-density abdominopelvic ascites. Nodes and vessels: No retroperitoneal or mesenteric adenopathy. Aorta and inferior vena cava are normal in caliber. Miscellaneous: No ventral hernias. PELVIS: Genitourinary: Bladder wall thickness is normal. Miscellaneous: No inguinal hernias or adenopathy. Bones: No suspicious bony lesions. No vertebral body compression fractures. IMPRESSION: 1. Nodular liver, esophageal varices, enlarged portal vein, and marked abdominopelvic ascites consistent with stigmata of portal hypertension. This finding was discussed with Dr. Addison at 4:25 PM on 05/05/17. 2. Normal appendix. Diverticulosis. No acute diverticulitis. Dictated by: Elizabeth Green M.D. on 05/05/2017 at 16:20 Approved by: Elizabeth Green M.D. on 05/05/2017 at 16:26 12-lead ECG Atrial fibrillation with rapid ventricular response with a rate of over 170 bpm Cardiac Echo Impressions Echocardiogram Report Name: ANA ACEVEDO Study Date: 05/07/2017 Height: 67 in Hospital Exam Location: [facility] Weight: 141 lb Gender: Female BSA: 1.7 m2 : 1940 Age: 76 yrs BP: 146/64 mmHg Reason For Study: Congestive Heart Failure Ordering Physician: Performed By: Palma Devries Referring Physician: Radha Sawyer Interpretation Summary The left ventricle is normal in size, wall thickness, and systolic function without any focal wall motion abnormalities. Left ventricular systolic function is normal. The ejection fraction is estimated to be 60-65%. Assessment of diastolic parameters indicates normal left ventricular diastolic function and normal filling pressures. The right ventricle is normal in size, thickness and function. The right ventricular systolic function is normal. The right ventricular systolic pressure is estimated at 33 mmHg assuming a right atrial pressure of 3 mm Hg. There is mild to moderate mitral regurgitation. No other echocardiographic abnormalities seen. Assessment & Plan The patient is a 76yo white female with past medical history of Lalita's admitted with subacute onset of abdominal distension and worsening abdominal pain. Abdominal pain, acute, present at the time of admission. Active - This is concerning for SBP given CT imaging, possibly a/w acute GI bleed, cirrhosis w/ascites and rising white blood cell count - We will continue ceftriaxone and increase dose to 1g q12HR - GI consultation has been obtained and appreciate Dr. Morrow's time and expertise. - A diagnostic and therapeutic paracentesis has been performed. Cultures were not performed as patient was already on antibiotics. Please see Dr. Morrow's extensive note for description of the ascites. GI bleed, acute, present at the time of admission. Appears to be resolved. - The patient has normocytic anemia on admission with CT scan concerning for cirrhosis with noted esophageal varices - The patient has guaiac positive stools in ED - We will trend H&H as needed. For now hemoglobin appears to be stable. - We will advance diet as tolerated for now - Pantoprazole gtt has been changed to daily by mouth dosing - Octreotide gtt has been discontinued - We will type and screen, threshold to transfuse hgb 7 - GI consult, recs appreciated. Patient went for a diagnostic EGD by Dr. Morrow and was found to have esophageal varices Normocytic anemia, acute, resident at the time of admission -treat as above -consideration to B12 and folate levels if H&H stable Lower extremity wounds, chronic, present at the time admission. 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 This apparently was diagnosed by a scheduling manager. -This was dressed on admission -The wound care team has been consulted -We will continue to avoid SCDs at this time Disposition: Patient likely to be here another 48-72 hours for continued evaluation and treatment of the above serious conditions. Appreciate GI consultation and will follow recommendations. Discussed with Dr. Morrow again today. I have discussed with patient's brother and [id number] at bedside at length yesterday and they agree with the above plan. They also would like patient placed in a rehabilitation facility or fdc facility after discharge so the patient may reach a stable condition prior to them moving her back to [place]. Pain Evaluation: Adequate Pain Control GI Prophylaxis: Proton Pump Inhibitor (pantoprazole gtt) VTE Prophylaxis: Theraputic Anticoag with Warfarin, SCDs (no SCDs in the setting of lower extremity wounds, heparin contraindicated in the setting of probable GI bleed) VTE Mechanical Devices: Intermittant Pneumatic CD Resuscitation Status: DNR/DNI:Do Not Resuscitate/Intubate (discussed with patient on admission ) Deric Sykes MD May 10, 2017 23:05 Deric Sykes MD May 10, 2017 23:05
[2017-05-11] VITALS (8 sets, daily range): BP systolic 129–143; BP diastolic 60–66; PULSE 75–97; RESP 14–20; O2SAT 94–96
--- NOTE | 2017-05-11 05:18 | NUR ---
Fatigue pt continues to c/o severe fatigue, states she can hardly hold arms up. However, stood with good strength and steadiness to transfer to BSC. Slept off and on throughout shift. Soft call light as pt reports hands not working well. Hourly rounding ongoing.
[2017-05-11 06:37] LABS: INR 1.05 ratio
[2017-05-11] MEDS: Pantoprazole 40 mg ER24 Tablet PO SCH (06:42)
[2017-05-11 06:46] LABS: Magnesium 1.8 mg/dL (1.6-2.6)
[2017-05-11] MEDS: cefTRIAXone Inj 1,000 MG in Dextrose 5% Minibag Plus 50 ML IV SCH ×2 (09:36→21:42)
[2017-05-11] MEDS: Multivit-Miner-Folic Acid-Iron Tablet PO SCH (11:20)
--- NOTE | 2017-05-11 11:20 | NUR ---
ЮЛИЯ signed by pt's DPOA over the phone. DPOA stated understanding. SCOTT Lilly
[2017-05-11] MEDS: Lactulose 20 Gm/30 mL 30 mL Syrup PO SCH ×3 (11:21→21:48)
[2017-05-11] MEDS: Potassium Chloride 20 mEq SR Tablet PO SCH ×2 (11:21→21:46)
--- NOTE | 2017-05-11 11:49 | PCM.PNMED ---
Subjective Date of Service May 11, 2017 Subjective GASTROENTEROLOGY PROGRESS NOTE Patient remained confused and very talkative. She continues to have some generalized weakness, occasional dark sputum production. She also feels bloated. She is not having any fever, chills, nausea, or vomiting. Exam Vital Signs Vital Sign - Last Date Time Temp Pulse Resp B/P Pulse Ox O2 Delivery O2 Flow Rate FiO2 05/11/17 08:06 36.7 92 16 136/60 95 Room Air 05/09/17 17:13 2 Intake and Output 05/10/17 05/10/17 05/11/17 Cumulative From/Thru 15:00 23:00 07:00 05/05/17 12:32 - 05/11/17 06:20 Intake Total 900 ml 380 ml 8025 ml Output Total 400 ml 250 ml 6150 ml Balance 500 ml 130 ml 1875 ml Intake Oral 900 ml 300 ml 3312 ml IV Total 80 ml 4713 ml Output Urine Total 3200 ml Stool Total 800 ml Urine/Stool Mix 400 ml 250 ml 2150 ml # Voids 2 # Bowel Movements 8 Exam General: No acute distress, cachectic, elderly, appropriately interactive HEENT: Normocephalic, atraumatic. External ears without defect. Anicteric sclerae, moist conjunctivae, and no lid lag. Oropharynx free of erythema and cobble stoning with moist mucosa. Neck: Supple with full range of motion. Cardiovascular: Regular rate and rhythm with no murmurs, rubs, or gallops appreciated Pulmonary: Clear to auscultation bilaterally with no crackles, wheezes, or rhonchi. Mildly increased respiratory effort. Abdomen: Bowel tones present. Mildly tender diffusely, moderately distended. Extremities: No clubbing, cyanosis, edema, or lymphadenopathy appreciated. Skin: Normal temperature, turgor, and texture; venous stasis changes in gaiter area of legs bilaterally Neurological: Cranial nerves grossly intact. Psychiatric: Normal mood and affect. Aware of situation, seems to be confused. Lab and Diagnostics Result Diagram: 05/10/1759905/11/17599 Microbiology Name: ANA ACEVEDO Age/Sex: 76/F Attend Dr: Deric Sykes Acct: [id number] Unit: [id number] Status: AD[place] IN [place] [facility] [place] Re05/05/17 Disch: Specimen: [id number] Collected: 05/06/17-1624 Status: RES Req#: [id number] Received: 05/06/17 Source: URINE CC Sp Desc : Subm Dr: Chad Morrow MD Ordered: URINE CULT Comments: Collected by Nurse/Unit? Y/N Y Procedure Result Verified Site Microbiology ROBBIN CULT URINE Preliminary 05/08/17-1032 PRELIMINARY ID STREP, PROBABLE ENTEROCOCCI ID AND SENS TO FOLLOW COLONY COUNT/QUANTITY 10-25,000 CFU/ml X-Rays, CTs and MRIs Patient Name: ANA ACEVEDO MR#: [id number] Location: [facility] Ordering Phys: Kendall Addison MD Date of Service: 05/05/171428 PROCEDURE: CT ABDOMEN AND PELVIS WITH CONTRAST (PNL-7102) INDICATIONS: marked abd swelling, pain; eval mass vs other abnl TECHNIQUE: After the administration of oral and intravenous contrast, 5 mm thick sections acquired from the diaphragms to the symphysis. 5 mm thick coronal and sagittal reformats were performed. For radiation dose reduction, the following was used : automated exposure control, adjustment of mA and/or kV according to patient size. COMPARISON: None. FINDINGS: Image quality: Excellent. ABDOMEN: Lung bases: Lung bases are clear. Heart size is normal. There is a small hiatal hernia. There is small esophageal bases. Solid organs: The liver has a nodular appearance which may represent cirrhotic transformation. The portal vein measures 2 cm in diameter. The spleen is normal size. Gallbladder is unremarkable. Biliary system is non-dilated. Pancreas enhances normally. No adrenal nodules. Kidneys are normal in size and enhancement, without hydronephrosis. Peritoneum and bowel: Stomach, small bowel, and colon loops are normal in caliber and wall thickness. The appendix is thickwalled and contrast-filled. There are scattered sigmoid diverticula. No evidence for diverticulitis. There is a large amount of low-density abdominopelvic ascites. Nodes and vessels: No retroperitoneal or mesenteric adenopathy. Aorta and inferior vena cava are normal in caliber. Miscellaneous: No ventral hernias. PELVIS: Genitourinary: Bladder wall thickness is normal. Miscellaneous: No inguinal hernias or adenopathy. Bones: No suspicious bony lesions. No vertebral body compression fractures. IMPRESSION: 1. Nodular liver, esophageal varices, enlarged portal vein, and marked abdominopelvic ascites consistent with stigmata of portal hypertension. This finding was discussed with Dr. Wanblee at 4:25 PM on 05/05/17. 2. Normal appendix. Diverticulosis. No acute diverticulitis. Dictated by: Elizabeth Green M.D. on 05/05/2017 at 16:20 Approved by: Elizabeth Green M.D. on 05/05/2017 at 16:26 12-lead ECG Atrial fibrillation with rapid ventricular response with a rate of over 170 bpm Cardiac Echo Impressions Echocardiogram Report Name: ANA ACEVEDO Study Date: 05/07/2017 Height: 67 in Hospital Exam Location: [facility] Weight: 141 lb Gender: Female BSA: 1.7 m2 : 1940 Age: 76 yrs BP: 146/64 mmHg Reason For Study: Congestive Heart Failure Ordering Physician: Performed By: Palma Devries Referring Physician: Radha Sawyer Interpretation Summary The left ventricle is normal in size, wall thickness, and systolic function without any focal wall motion abnormalities. Left ventricular systolic function is normal. The ejection fraction is estimated to be 60-65%. Assessment of diastolic parameters indicates normal left ventricular diastolic function and normal filling pressures. The right ventricle is normal in size, thickness and function. The right ventricular systolic function is normal. The right ventricular systolic pressure is estimated at 33 mmHg assuming a right atrial pressure of 3 mm Hg. There is mild to moderate mitral regurgitation. No other echocardiographic abnormalities seen. Assessment & Plan This is a 76-year-old lady with what appears to be portal hypertension. Albumin is low; however she has normal platelets and she is overall a poor historian. 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 The only records in our system on an outpatient basis is in 2013 which showed that she was seen once for numbness and she has a history of peripheral neuropathy. She takes fish oil, naproxen, Coenzyme Q at that time, and this was in 2013. In 2014, blood test was done, which showed hemoglobin 13.2, normal platelets, sed rate was elevated at 77, and LFTs are normal with albumin being 4.1. But, based on the CT scan, there seems to be definitely evidence of ascites with cirrhosis. Echocardiogram showing no right-sided failure or left-sided failure. Ultrasound reviewed. Portal vein was dilated. No clear evidence of portal vein thrombosis. Liver workup so far revealed that her hepatitis A antibody is positive. Alpha- 1 antitrypsin level is normal. Ceruloplasmin level was normal. Mitochondrial/ smooth muscle Ab titer and Anti-smooth muscle Ab both negative. Hepatitis B and C serologies are negative. Ascites analysis was done. The total cells were 402 White blood cell and 22% PMNs. Total protein is 0.8 albumin is 0.2.SAAG > 1.1. Therefore the ascites is most consistent with portal hypertension. Echocardiogram did not reveal a right-sided failure. Patient was already taking antibiotics by the time we did this analysis. Unfortunately ascites analysis was done with couple of days of antibiotics.Would like to consider starting propanolol 10 mg 2 times a day. However propanolol should be not use when patient has spontaneous bacterial peritonitis. I am not sure if she ever has spontaneously bacterial peritonitis. Cell count with differential was not consistent with SBP. However this was obtained after antibiotics were started. Recommendations: 1. Start propranolol 10 by mouth twice a day starting tomorrow. Hold if systolic pressure less than 100 or heart rate less than 55. Hold If she has lightheadedness or dizziness or She has falls. If she does not tolerate it, consider EGD with banding. At the time of the EGD, she was on warfarin due to A. fib. She could not be banded during EGD because of the anticoagulation. 2. If she has refractory ascites, she needs to have banding. We have not medically treated her for ascites, we do not know if she has refractory ascites as she has not had medical treatment. 3. Ascites is consistent with portal hypertension, 2 g sodium diet and Lasix and spironolactone. We will continue with Lasix 20 mg PO once a day and spironolactone 50 mg PO once a day. 4. Her total protein is less than 1.0 and if she indeed had SBP, she will need prophylactic antibiotics for SBP. Patient on ceftriaxone currently. 5. Continue acid suppression. 40mg protonix PO daily. Pain Evaluation: Adequate Pain Control GI Prophylaxis: Proton Pump Inhibitor (pantoprazole gtt) VTE Prophylaxis: Theraputic Anticoag with Warfarin, SCDs (no SCDs in the setting of lower extremity wounds, heparin contraindicated in the setting of probable GI bleed) VTE Mechanical Devices: Intermittant Pneumatic CD Resuscitation Status: DNR/DNI:Do Not Resuscitate/Intubate (discussed with patient on admission ) Attending Statement agree with assessment and plan above. Plan is to start propanolol on monday. If tolerate, then no need for egd banding of esoph varices. Pt on diuretics. If refractory ascites, then egd banding. copies to: Ronni Olvera MD, Erika R DO May 11, 2017 11:49 Ronni Olvera MD May 11, 2017 16:49
--- NOTE | 2017-05-11 20:00 | NUR ---
Abd distention Patient with increased abdominal discomfort today and increase in abd distention. Patient states "my stomach feels tight and full." Pt denied nausea but did appear quite uncomfortable. aware and is monitoring her labs and status. her brother Ray who is POA called and updated on her status this am.
--- NOTE | 2017-05-11 23:35 | PCM.PNMED ---
Subjective Date of Service May 11, 2017 Subjective The patient complains of persistent abdominal discomfort that she has no other new complaints. Exam Vital Signs Vital Sign - Last Date Time Temp Pulse Resp B/P Pulse Ox O2 Delivery O2 Flow Rate FiO2 05/11/17 19:46 36.6 75 18 129/60 96 Room Air 05/09/17 17:13 2 Intake and Output 05/10/17 05/10/17 05/11/17 Cumulative From/Thru 15:00 23:00 07:00 05/05/17 12:32 - 05/11/17 06:20 Intake Total 900 ml 380 ml 8025 ml Output Total 400 ml 250 ml 6150 ml Balance 500 ml 130 ml 1875 ml Intake Oral 900 ml 300 ml 3312 ml IV Total 80 ml 4713 ml Output Urine Total 3200 ml Stool Total 800 ml Urine/Stool Mix 400 ml 250 ml 2150 ml # Voids 2 # Bowel Movements 8 Exam General: Patient is comfortable lying supine in bed. She appears to be in no distress and is pleasantly confused. HEENT: Head is atraumatic and normocephalic. Eyes: Pupils are equally round and reactive to light and accommodation. Extraocular muscles are intact. Sclera are white, anicteric. Subconjunctival mucosa is pink. Ears and nose are unremarkable. Oropharynx: There is no mucosal lesions, there is no thrush, there is no pharyngitis. Neck: Is supple, there are a few small pea-sized nodes. However, the patient states these have been there all along she just did not point them out to me as they are difficult to detect. She has had these for an extended period time and they have been evaluated in the past. He has no other masses or tenderness. Chest: Is clear to auscultation and percussion. There are no rales, rhonchi, wheezes or rubs. Heart: Rate, rhythm is regular. There is no murmur, rub or gallop. Abdomen: Good bowel sounds are present. Abdomen is obese, soft, with nonspecific tenderness, no organomegaly or masses were appreciated. The patient does have a fluid wave shift. The patient has increased tympany on percussion. Extremities: Are symmetrical and well perfused. There is evidence of brawny edema, there is no cellulitis, no rash. 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 Edema has slightly improved. Neurologic: There are no focal neurological deficits. Cranial nerves II through XII are intact. There are no sensory or motor deficits. The patient is confused, however slightly less so today and more alert.. She exhibited asterixis after her endoscopy witnessed by Dr. Morrow. Psychiatric: Patients mood is calm and shows no sign of agitation. However, patient is confused. Genital: Deferred Rectal: Deferred Lab and Diagnostics Result Diagram: 05/10/1759905/11/17599 Microbiology Name: ANA ACEVEDO Age/Sex: 76/F Attend Dr: Deric Sykes Acct: [id number] Unit: [id number] Status: ADM IN Location: [facility] [place] 1029-1 Re05/05/17 Disch: Specimen: [id number] Collected: 05/06/17 Status: RES Req#: [id number] Received: 05/06/17 Source: URINE CC Sp Desc : Subm Dr: Chad Morrow MD Ordered: URINE CULT Comments: Collected by Nurse/Unit? Y/N Y Procedure Result Verified Site Microbiology ROBBIN CULT URINE Preliminary 05/08/17-1033 PRELIMINARY ID STREP, PROBABLE ENTEROCOCCI ID AND SENS TO FOLLOW COLONY COUNT/QUANTITY 10-25,000 CFU/ml X-Rays, CTs and MRIs Patient Name: ANA ACEVEDO MR#: [id number] Location: [facility] [place] Ordering Phys: Kendall Addison MD Date of Service: 05/05/171428 PROCEDURE: CT ABDOMEN AND PELVIS WITH CONTRAST ([id number]) INDICATIONS: marked abd swelling, pain; eval mass vs other abnl TECHNIQUE: After the administration of oral and intravenous contrast, 5 mm thick sections acquired from the diaphragms to the symphysis. 5 mm thick coronal and sagittal reformats were performed. For radiation dose reduction, the following was used : automated exposure control, adjustment of mA and/or kV according to patient size. COMPARISON: None. FINDINGS: Image quality: Excellent. ABDOMEN: Lung bases: Lung bases are clear. Heart size is normal. There is a small hiatal hernia. There is small esophageal bases. Solid organs: The liver has a nodular appearance which may represent cirrhotic transformation. The portal vein measures 2 cm in diameter. The spleen is normal size. Gallbladder is unremarkable. Biliary system is non-dilated. Pancreas enhances normally. No adrenal nodules. Kidneys are normal in size and enhancement, without hydronephrosis. Peritoneum and bowel: Stomach, small bowel, and colon loops are normal in caliber and wall thickness. The appendix is thickwalled and contrast-filled. There are scattered sigmoid diverticula. No evidence for diverticulitis. There is a large amount of low-density abdominopelvic ascites. Nodes and vessels: No retroperitoneal or mesenteric adenopathy. Aorta and inferior vena cava are normal in caliber. Miscellaneous: No ventral hernias. PELVIS: Genitourinary: Bladder wall thickness is normal. Miscellaneous: No inguinal hernias or adenopathy. Bones: No suspicious bony lesions. No vertebral body compression fractures. IMPRESSION: 1. Nodular liver, esophageal varices, enlarged portal vein, and marked abdominopelvic ascites consistent with stigmata of portal hypertension. This finding was discussed with Dr. Addison at 4:25 PM on 05/05/17. 2. Normal appendix. Diverticulosis. No acute diverticulitis. Dictated by: Elizabeth Green M.D. on 05/05/2017 at 16:20 Approved by: Elizabeth Green M.D. on 05/05/2017 at 16:26 12-lead ECG Atrial fibrillation with rapid ventricular response with a rate of over 170 bpm Cardiac Echo Impressions Echocardiogram Report Name: ANA ACEVEDO Study Date: 05/07/2017 Height: 67 in Hospital Exam Location: [facility] Weight: 141 lb Gender: Female BSA: 1.7 m2 : 1940 Age: 76 yrs BP: 146/64 mmHg Reason For Study: Congestive Heart Failure Ordering Physician: Performed By: Palma Devries Referring Physician: Radha Sawyer Interpretation Summary The left ventricle is normal in size, wall thickness, and systolic function without any focal wall motion abnormalities. Left ventricular systolic function is normal. The ejection fraction is estimated to be 60-65%. Assessment of diastolic parameters indicates normal left ventricular diastolic function and normal filling pressures. The right ventricle is normal in size, thickness and function. The right ventricular systolic function is normal. The right ventricular systolic pressure is estimated at 33 mmHg assuming a right atrial pressure of 3 mm Hg. There is mild to moderate mitral regurgitation. No other echocardiographic abnormalities seen. Assessment & Plan The patient is a 76yo white female with past medical history of Lalita's admitted with subacute onset of abdominal distension and worsening abdominal pain. # Abdominal pain, acute, present at the time of admission. Active - This is concerning for SBP given CT imaging, possibly a/w acute GI bleed, cirrhosis w/ascites and rising white blood cell count - We will continue ceftriaxone and increase dose to 1g q12HR - GI consultation has been obtained and appreciate Dr. Morrow's and Dr. Olvera's time and expertise. - A diagnostic and therapeutic paracentesis has been performed. Cultures were not performed as patient was already on antibiotics. # Portal hypertension - GIs recommendations are as follows: "Recommendations: 1. Start propranolol 10 by mouth twice a day starting tomorrow. Hold if systolic pressure less than 100 or heart rate less than 55. Hold If she has lightheadedness or dizziness or She has falls. If she does not tolerate it, consider EGD with banding. At the time of the EGD, she was on warfarin due to A. fib. She could not be banded during EGD because of the anticoagulation. 2. If she has refractory ascites, she needs to have banding. We have not medically treated her for ascites, we do not know if she has refractory ascites as she has not had medical treatment. 3. Ascites is consistent with portal hypertension, 2 g sodium diet and Lasix and spironolactone. We will continue with Lasix 20 mg PO once a day and spironolactone 50 mg PO once a day. 4. Her total protein is less than 1.0 and if she indeed had SBP, she will need prophylactic antibiotics for SBP. Patient on ceftriaxone currently. 5. Continue acid suppression. 40mg protonix PO daily." # GI bleed, acute, present at the time of admission. Appears to be resolved. - The patient has normocytic anemia on admission with CT scan concerning for cirrhosis with noted esophageal varices - The patient has guaiac positive stools in ED - We will trend H&H as needed. For now hemoglobin appears to be stable. - We will advance diet as tolerated for now - Pantoprazole gtt has been changed to daily by mouth dosing - Octreotide gtt has been discontinued - We will type and screen, threshold to transfuse hgb 7 - GI consult, recs appreciated. Patient went for a diagnostic EGD by Dr. Morrow and was found to have esophageal varices # Normocytic anemia, acute, resident at the time of admission -treat as above -consideration to B12 and folate levels if H&H stable # Lower extremity wounds, chronic, present at the time admission. 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 This apparently was diagnosed by a baller tender. - Edema has improved on oral Lasix and spironolactone -This was dressed on admission -The wound care team has been consulted -We will continue to avoid SCDs at this time Disposition: Patient likely to be here another 48-72 hours for continued evaluation and treatment of the above serious conditions. Appreciate GI consultation and will follow recommendations. I have discussed with patient's brother and [id number] at bedside at length yesterday and they agree with the above plan. They also would like patient placed in a rehabilitation facility or [facility]ci facility after discharge so the patient may reach a stable condition prior to them moving her back to [place]. Pain Evaluation: Adequate Pain Control GI Prophylaxis: Proton Pump Inhibitor (pantoprazole gtt) VTE Prophylaxis: Theraputic Anticoag with Warfarin, SCDs (no SCDs in the setting of lower extremity wounds, heparin contraindicated in the setting of probable GI bleed) VTE Mechanical Devices: Intermittant Pneumatic CD Resuscitation Status: DNR/DNI:Do Not Resuscitate/Intubate (discussed with patient on admission ) Deric Sykes MD May 11, 2017 23:35
[2017-05-12] VITALS (11 sets, daily range): BP systolic 115–156; BP diastolic 53–76; PULSE 65–97; RESP 16–22; O2SAT 92–100
--- NOTE | 2017-05-12 03:53 | NUR ---
Abdominal Distention/ Pain Pt. reports pain as "extreme tightness around my belly. It makes it hard to get comfortable". Tylenol PO given, and was effective. Svetlana DOMINGUEZ paged. IV morphine also ordered if needed for pain.
[2017-05-12 06:24] LABS: BASOPHILS % (AUTO) 0.3 % (0-3); EOSINOPHILS % (AUTO) 1.2 % (0-5); MONOCYTES % (AUTO) 11.8 % (4-12); Mean Corpuscular Hemoglobin 28.2 pg (27.0-35.0); Mean Corpuscular Volume 87.9 fL (81-100); NEUTROPHILS % (AUTO) 73.9 % (40-74); Platelet Count 229 bil/L (150-400)
[2017-05-12] MEDS: Pantoprazole 40 mg ER24 Tablet PO SCH (06:33)
--- NOTE | 2017-05-12 06:36 | NUR ---
Mood Pt. became very tearful after lab draw. Pt. denies pain is the reason. Pt. states "I'm sick and tired of being in the hospital. I am never going to get better from this". Pt. very emotional. Questions answered that pt. had, and education given on portal hypertension.
[2017-05-12 06:40] LABS: INR 1.05 ratio
[2017-05-12 06:42] LABS: Magnesium 1.8 mg/dL (1.6-2.6)
[2017-05-12] MEDS: cefTRIAXone Inj 1,000 MG in Dextrose 5% Minibag Plus 50 ML IV SCH ×2 (09:41→21:48)
[2017-05-12] MEDS: Lactulose 20 Gm/30 mL 30 mL Syrup PO SCH ×3 (09:41→21:45)
[2017-05-12] MEDS: Potassium Chloride 20 mEq SR Tablet PO SCH (09:42)
[2017-05-12] MEDS: Multivit-Miner-Folic Acid-Iron Tablet PO SCH (10:16)
--- NOTE | 2017-05-12 11:30 | NUR ---
NUTRITION FOLLOW-UP: ASSESS: 76 YO female admitted for GI bleed and cirrhosis. Pt is s/p diagnostic paracentesis 05/09. Pt continues to complain of abd. discomfort and there is concern for spontaneous bacterial peritonitis. Pt remain confused, likely due to dementia. PO intake has been variable with pt eating 25-100% of meals. PMHx: Lalita's LABS: Reviewed. Cr 0.52, Ca 8.0, alb 2.1, AST 75, ALT 59, Alk Phos 298. MEDS: Reviewed. GI: BM x 2 (05/11) CURRENT WT: 64 kg. Admit wt: 59.7 kg. DIET: Soft, 2 G Na. PO 25-100% of meals, with po avg of 40% x 3 days. EST. NEEDS: 7604-6929 kcals (25-35 kcals/kg BW), 70-90 g protein (1.2-1.5 g/kg BW) NUTRITION DIAGNOSIS: 1.) Increased nutrient needs related to increased demand for nutrients as evidenced by chronic liver disease--PERSISTS. 2.) Inadequate po intake related to unknown etiology, possibly cognition or altered GI function, as evidenced by avg. PO intake of 40% of meals x 3 days. NUTRITION INTERVENTION: 1.) Will add ensure BID on lunch and dinner trays to encourage adequate po intake. MONITOR / EVAL: PO intake, labs, nutritional status. Follow per moderate nutritional risk guidelines.
--- NOTE | 2017-05-12 11:47 | PCM.PNMED ---
Subjective Date of Service May 12, 2017 Subjective Patient doing well today. She had a large bowel movement this morning that decreased the tightness and discomfort in her abdomen. She is not experiencing any nausea or vomiting. She is not having any fever or chills. Propranolol was started this morning and caused a decrease in her heart rate and blood pressure. She is not feeling light headed, dizzy, or experiencing a headache. She is currently only ambulating with assistance. Exam Vital Signs Vital Sign - Last Date Time Temp Pulse Resp B/P Pulse Ox O2 Delivery O2 Flow Rate FiO2 05/12/17 07:54 36.5 83 20 145/65 94 Room Air 05/09/17 17:13 2 Intake and Output 05/11/17 05/11/17 05/12/17 Cumulative From/Thru 15:00 23:00 07:00 05/05/17 12:32 - 05/12/17 06:41 Intake Total 1172 ml 300 ml 9497 ml Output Total 1250 ml 450 ml 7850 ml Balance -78 ml -150 ml 1647 ml Intake Oral 1172 ml 250 ml 4734 ml IV Total 50 ml 4763 ml Output Urine Total 500 ml 3700 ml Stool Total 800 ml Urine/Stool Mix 750 ml 450 ml 3350 ml # Voids 2 # Bowel Movements 2 10 Exam General: No acute distress, cachectic, elderly, appropriately interactive HEENT: Normocephalic, atraumatic. External ears without defect. Anicteric sclerae, moist conjunctivae, and no lid lag. Oropharynx free of erythema and cobble stoning with moist mucosa. Neck: Supple with full range of motion. Cardiovascular: Regular rate and rhythm with no murmurs, rubs, or gallops appreciated Pulmonary: Clear to auscultation bilaterally with no crackles, wheezes, or rhonchi. Mildly increased respiratory effort. Abdomen: Bowel tones present. non tender, mild-moderately distended, less so than yesterday.Soft. Extremities: No clubbing, cyanosis, or lymphadenopathy appreciated. mild pitting edema to above the knee bilaterally. Skin: Normal temperature, turgor, and texture; venous stasis changes in gaiter area of legs bilaterally Neurological: Cranial nerves grossly intact. Psychiatric: Normal mood and affect. Aware of situation, seems to be confused. Lab and Diagnostics Result Diagram: 05/12/17 0555 05/12/17 0555 Microbiology Name: EBONI ACEVEDOIL Age/Sex: 76/F Attend Dr: Deric Sykes Acct: [id number] Unit: [id number] Status: ADM IN Location: [facility] [place] 1029-1 Re05/05/17 Disch: Specimen: [id number] Collected: 05/06/17 Status: RES Req#: [id number] Received: 05/06/17 Source: URINE CC Sp Desc : Subm Dr: Chad Morrow MD Ordered: URINE CULT Comments: Collected by Nurse/Unit? Y/N Y Procedure Result Verified Site Microbiology ROBBIN CULT URINE Preliminary 05/08/17-1033 PRELIMINARY ID STREP, PROBABLE ENTEROCOCCI ID AND SENS TO FOLLOW COLONY COUNT/QUANTITY 10-25,000 CFU/ml X-Rays, CTs and MRIs PROCEDURE: CT ABDOMEN AND PELVIS WITH CONTRAST IMPRESSION: 1. Nodular liver, esophageal varices, enlarged portal vein, and marked abdominopelvic ascites consistent with stigmata of portal hypertension. This finding was discussed with Dr. Addison at 4:25 PM on 05/05/17. 2. Normal appendix. Diverticulosis. No acute diverticulitis. Dictated by: Elizabeth Green M.D. on 05/05/2017 at 16:20 Approved by: Elizabeth Green M.D. on 05/05/2017 at 16:26 12-lead ECG Atrial fibrillation with rapid ventricular response with a rate of over 170 bpm Cardiac Echo Impressions Echocardiogram Report Name: ANA ACEVEDO Study Date: 05/07/2017 Height: 67 in Hospital Exam Location: [facility] Weight: 141 lb Gender: Female BSA: 1.7 m2 : 1940 Age: 76 yrs BP: 146/64 mmHg Reason For Study: Congestive Heart Failure Ordering Physician: Performed By: Palma Devries Referring Physician: Radha Sawyer Interpretation Summary The left ventricle is normal in size, wall thickness, and systolic function without any focal wall motion abnormalities. Left ventricular systolic function is normal. The ejection fraction is estimated to be 60-65%. Assessment of diastolic parameters indicates normal left ventricular diastolic function and normal filling pressures. The right ventricle is normal in size, thickness and function. The right ventricular systolic function is normal. The right ventricular systolic pressure is estimated at 33 mmHg assuming a right atrial pressure of 3 mm Hg. There is mild to moderate mitral regurgitation. No other echocardiographic abnormalities seen. Additional Diagnostics PROCEDURE: US ABDOMEN DOPPLER IMPRESSION: 1. Liver demonstrates heterogeneous echotexture consistent with cirrhosis. The main portal vein is dilated. There is hepatopedal flow in main portal vein. 2. Gallbladder sludge. Mild gallbladder wall thickening is present, likely secondary to chronic liver disease process in acute cholecystitis. Recommend clinical correlation. 3. A small amount of ascites. 4. Small bilateral effusions. Dictated by: Leatha Cohen M.D. on 05/07/2017 at 12:57 Assessment & Plan This is a 76-year-old lady with what appears to be portal hypertension. Albumin is low; however she has normal platelets and she is overall a poor historian. 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 The only records in our system on an outpatient basis is in 2013 which showed that she was seen once for numbness and she has a history of peripheral neuropathy. She takes fish oil, naproxen, Coenzyme Q at that time, and this was in 2013. In 2014, blood test was done, which showed hemoglobin 13.2, normal platelets, sed rate was elevated at 77, and LFTs are normal with albumin being 4.1. But, based on the CT scan, there seems to be definitive evidence of ascites with cirrhosis. Echocardiogram showing no right-sided failure or left-sided failure. Ultrasound reviewed. Portal vein was dilated. No clear evidence of portal vein thrombosis. Liver workup so far revealed that her hepatitis A antibody is positive. Alpha- 1 antitrypsin level is normal. Ceruloplasmin level was normal. Mitochondrial/ smooth muscle Ab titer and Anti-smooth muscle Ab both negative. Hepatitis B and C serologies are negative. Ascites analysis was done. The total cells were 402 White blood cell and 22% PMNs. Total protein is 0.8 albumin is 0.2.SAAG > 1.1. Therefore the ascites is most consistent with portal hypertension. Echocardiogram did not reveal a right-sided failure. Patient was already taking antibiotics by the time we did this analysis. Unfortunately ascites analysis was done with couple of days of antibiotics. Would like to consider starting propranolol 10 mg 2 times a day. However propranolol should be not use when patient has spontaneous bacterial peritonitis. I am not sure if she ever has spontaneously bacterial peritonitis. Cell count with differential was not consistent with SBP. However this was obtained after antibiotics were started. Recommendations: 1. Propranolol 10 by mouth twice a day. Hold if systolic pressure less than 100 or heart rate less than 55. Hold If she has lightheadedness or dizziness or She has falls. If she does not tolerate it, consider EGD with banding. At the time of the EGD, she was on warfarin and lovenox due to A. fib. She could not be banded during EGD because of the anticoagulation. 2. If she has refractory ascites, she needs to have banding. We have not medically treated her for ascites, we do not know if she has refractory ascites as she has not had medical treatment. 3. Ascites is consistent with portal hypertension, 2 g sodium diet and Lasix and spironolactone. We will continue with Lasix 20 mg PO once a day and spironolactone 50 mg PO once a day. 4. Her total protein is less than 1.0 and if she indeed had SBP, she will need prophylactic antibiotics for SBP. Patient on ceftriaxone currently. 5. Continue acid suppression. 40mg protonix PO daily. 6. Patient is minimally active and not able to get out of bed on her own. Physical Therapy to help with movement thus improving gut motility is important. PT Eval ordered. Pain Evaluation: Adequate Pain Control GI Prophylaxis: Proton Pump Inhibitor (pantoprazole gtt) VTE Prophylaxis: Theraputic Anticoag with Warfarin, SCDs (no SCDs in the setting of lower extremity wounds, heparin contraindicated in the setting of probable GI bleed) VTE Mechanical Devices: Intermittant Pneumatic CD Resuscitation Status: DNR/DNI:Do Not Resuscitate/Intubate (discussed with patient on admission ) copies to: Emmanuel Palomino MD; Ronni Olvera MD, Erika R DO May 12, 2017 07:58
--- NOTE | 2017-05-12 19:24 | NUR ---
Ascites/Gas/BP Mylicon ordered for abdominal discomfort. Per pt has has some relief this shift. Poss rule out ascites per MD. Continue monitoring BP with medications due to portal htn.
[2017-05-13] VITALS (8 sets, daily range): BP systolic 116–144; BP diastolic 53–86; PULSE 71–85; RESP 16–20; O2SAT 93–94
--- NOTE | 2017-05-13 01:11 | PCM.PNMED ---
Subjective Date of Service May 13, 2017 Subjective Patient has less abdominal discomfort today. However, she is complaining of spasms in her buttock and anterior thigh. This is predominantly on the right side. She has no other new complaints. Exam Vital Signs Vital Sign - Last Date Time Temp Pulse Resp B/P Pulse Ox O2 Delivery O2 Flow Rate FiO2 05/12/17 21:10 36.9 87 18 130/63 92 Room Air 05/12/17 17:59 2.00 Intake and Output 05/12/17 05/12/17 05/13/17 Cumulative From/Thru 15:00 23:00 07:00 05/05/17 12:32 - 05/13/17 00:46 Intake Total 585 ml 62908 ml Output Total 2700 ml 79772 ml Balance -2115 ml -468 ml Intake Oral 585 ml 5319 ml IV Total 4763 ml Output Urine Total 3700 ml Stool Total 800 ml Urine/Stool Mix 2700 ml 6050 ml # Voids 3 5 # Bowel Movements 10 Exam General: Patient is comfortable lying supine in bed. She appears to be in no distress and is pleasantly confused. HEENT: Head is atraumatic and normocephalic. Eyes: Pupils are equally round and reactive to light and accommodation. Extraocular muscles are intact. Sclera are white, anicteric. Subconjunctival mucosa is pink. Ears and nose are unremarkable. Oropharynx: There is no mucosal lesions, there is no thrush, there is no pharyngitis. Neck: Is supple, there are a few small pea-sized nodes. However, the patient states these have been there all along she just did not point them out to me as they are difficult to detect. She has had these for an extended period time and they have been evaluated in the past. He has no other masses or tenderness. Chest: Is clear to auscultation and percussion. There are no rales, rhonchi, wheezes or rubs. Heart: Rate, rhythm is regular. There is no murmur, rub or gallop. Abdomen: Good bowel sounds are present. Abdomen is obese, soft, with nonspecific tenderness has improved today. There is no organomegaly or masses were appreciated. The patient does have a fluid wave shift. The patient has decreased tympany on percussion. Extremities: Are symmetrical and well perfused. There is evidence of brawny edema, there is no cellulitis, no rash. 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 Edema has slightly improved. Neurologic: There are no focal neurological deficits. Cranial nerves II through XII are intact. There are no sensory or motor deficits. The patient is confused, however slightly less so today and more alert.. She exhibited asterixis after her endoscopy witnessed by Dr. Morrow. Psychiatric: Patients mood is calm and shows no sign of agitation. However, patient is confused. Genital: Deferred Rectal: Deferred Lab and Diagnostics Result Diagram: 05/12/1755 05/12/17 0555 Microbiology Name: ANA ACEVEDO Age/Sex: 76/F Attend Dr: Deric Sykes Acct: [id number] Unit: [id number] Status: ADM IN Location: [facility] 1029-1 Re05/05/17 Disch: Specimen: [id number] Collected: 05/06/17 Status: RES Req#: [id number] Received: 05/06/17 Source: URINE CC Sp Desc : Subm Dr: Chad Morrow MD Ordered: URINE CULT Comments: Collected by Nurse/Unit? Y/N Y Procedure Result Verified Site Microbiology ROBBIN CULT URINE Preliminary 05/08/17-1032 PRELIMINARY ID STREP, PROBABLE ENTEROCOCCI ID AND SENS TO FOLLOW COLONY COUNT/QUANTITY 10-25,000 CFU/ml X-Rays, CTs and MRIs PROCEDURE: CT ABDOMEN AND PELVIS WITH CONTRAST IMPRESSION: 1. Nodular liver, esophageal varices, enlarged portal vein, and marked abdominopelvic ascites consistent with stigmata of portal hypertension. This finding was discussed with Dr. Addison at 4:25 PM on 05/05/17. 2. Normal appendix. Diverticulosis. No acute diverticulitis. Dictated by: Elizabeth Green M.D. on 05/05/2017 at 16:20 Approved by: Elizabeth Green M.D. on 05/05/2017 at 16:26 12-lead ECG Atrial fibrillation with rapid ventricular response with a rate of over 170 bpm Cardiac Echo Impressions Echocardiogram Report Name: ANA ACEVEDO Study Date: 05/07/2017 Height: 67 in Hospital Exam Location: [facility] Weight: 141 lb Gender: Female BSA: 1.7 m2 : 1940 Age: 76 yrs BP: 146/64 mmHg Reason For Study: Congestive Heart Failure Ordering Physician: Performed By: Palma Devries Referring Physician: Radha Sawyer Interpretation Summary The left ventricle is normal in size, wall thickness, and systolic function without any focal wall motion abnormalities. Left ventricular systolic function is normal. The ejection fraction is estimated to be 60-65%. Assessment of diastolic parameters indicates normal left ventricular diastolic function and normal filling pressures. The right ventricle is normal in size, thickness and function. The right ventricular systolic function is normal. The right ventricular systolic pressure is estimated at 33 mmHg assuming a right atrial pressure of 3 mm Hg. There is mild to moderate mitral regurgitation. No other echocardiographic abnormalities seen. Additional Diagnostics PROCEDURE: US ABDOMEN DOPPLER IMPRESSION: 1. Liver demonstrates heterogeneous echotexture consistent with cirrhosis. The main portal vein is dilated. There is hepatopedal flow in main portal vein. 2. Gallbladder sludge. Mild gallbladder wall thickening is present, likely secondary to chronic liver disease process in acute cholecystitis. Recommend clinical correlation. 3. A small amount of ascites. 4. Small bilateral effusions. Dictated by: Leatha Cohen M.D. on 05/07/2017 at 12:57 Assessment & Plan The patient is a 76yo white female with past medical history of Lalita's admitted to the hospitalist service with subacute onset of abdominal distension and worsening abdominal pain. # Abdominal pain, acute, present at the time of admission. Active and slightly improved today - This is concerning for SBP given CT imaging, possibly a/w acute GI bleed, cirrhosis w/ascites and rising white blood cell count - We will continue ceftriaxone and increase dose to 1g q12HR day #7 of 10 - GI consultation has been obtained and appreciate Dr. Morrow's and Dr. Olvera's time and expertise. - A diagnostic and therapeutic paracentesis has been performed. Cultures were not performed as patient was already on antibiotics. - Much of the abdominal discomfort has been due to gas and therefore simethicone was started yesterday with considerable relief in the patient's abdominal pain and discomfort. # Portal hypertension - GIs recommendations are as follows: "Recommendations: 1. Start propranolol 10 by mouth twice a day starting tomorrow. Hold if systolic pressure less than 100 or heart rate less than 55. Hold If she has lightheadedness or dizziness or She has falls. If she does not tolerate it, consider EGD with banding. At the time of the EGD, she was on warfarin due to A. fib. She could not be banded during EGD because of the anticoagulation. 2. If she has refractory ascites, she needs to have banding. We have not medically treated her for ascites, we do not know if she has refractory ascites as she has not had medical treatment. 3. Ascites is consistent with portal hypertension, 2 g sodium diet and Lasix and spironolactone. We will continue with Lasix 20 mg PO once a day and spironolactone 50 mg PO once a day. 4. Her total protein is less than 1.0 and if she indeed had SBP, she will need prophylactic antibiotics for SBP. Patient on ceftriaxone currently. 5. Continue acid suppression. 40mg protonix PO daily." # GI bleed, acute, present at the time of admission. Appears to be resolved. - The patient has normocytic anemia on admission with CT scan concerning for cirrhosis with noted esophageal varices - The patient has guaiac positive stools in ED - We will trend H&H as needed. For now hemoglobin appears to be stable. - We will advance diet as tolerated for now - Pantoprazole gtt has been changed to daily by mouth dosing - Octreotide gtt has been discontinued - We will type and screen, threshold to transfuse hgb 7 - GI consult, recs appreciated. Patient went for a diagnostic EGD by Dr. Morrow and was found to have esophageal varices # Normocytic anemia, acute, resident at the time of admission -treat as above -consideration to B12 and folate levels if H&H stable # Lower extremity wounds, chronic, present at the time admission. 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 This apparently was diagnosed by a slot technician. - Edema has improved on oral Lasix and spironolactone -This was dressed on admission -The wound care team has been consulted -We will continue to avoid SCDs at this time Disposition: Patient likely to be here another 48-72 hours for continued evaluation and treatment of the above serious conditions. Appreciate GI consultation and will follow recommendations. I have discussed with patient's brother and [id number] at bedside at length yesterday and they agree with the above plan. They also would like patient placed in a rehabilitation facility or [place] [facility] facility after discharge so the patient may reach a stable condition prior to them moving her back to [place]. Pain Evaluation: Adequate Pain Control GI Prophylaxis: Proton Pump Inhibitor (pantoprazole gtt) VTE Prophylaxis: Theraputic Anticoag with Warfarin, SCDs (no SCDs in the setting of lower extremity wounds, heparin contraindicated in the setting of probable GI bleed) VTE Mechanical Devices: Intermittant Pneumatic CD Resuscitation Status: DNR/DNI:Do Not Resuscitate/Intubate (discussed with patient on admission ) Deric Sykes MD May 13, 2017 01:11
--- NOTE | 2017-05-13 05:49 | NUR ---
Distention/ BM Noticeable decreased distention in abdomen. Mylicon PO given early in shift. Pt. did have one large BM earlier in shift. Will continue to monitor.
[2017-05-13] MEDS: Pantoprazole 40 mg ER24 Tablet PO SCH (06:43)
[2017-05-13 06:52] LABS: BASOPHILS % (AUTO) 0.7 % (0-3); EOSINOPHILS % (AUTO) 3.1 % (0-5); MONOCYTES % (AUTO) 11.6 % (4-12); Mean Corpuscular Hemoglobin 27.9 pg (27.0-35.0); Mean Corpuscular Volume 88.5 fL (81-100); NEUTROPHILS % (AUTO) 71.4 % (40-74); Platelet Count 202 bil/L (150-400)
[2017-05-13 07:05] LABS: INR 1.05 ratio
[2017-05-13 07:16] LABS: Magnesium 1.7 mg/dL (1.6-2.6)
[2017-05-13] MEDS: Lactulose 20 Gm/30 mL 30 mL Syrup PO SCH ×3 (09:18→20:30)
[2017-05-13] MEDS: Multivit-Miner-Folic Acid-Iron Tablet PO SCH (09:19)
[2017-05-13] MEDS: cefTRIAXone Inj 1,000 MG in Dextrose 5% Minibag Plus 50 ML IV SCH ×2 (09:23→21:24)
--- NOTE | 2017-05-13 09:32 | PCM.PNSURG ---
Subjective Date of Service: May 13, 2017 Date of Service: May 13, 2017 Visit Information: Subjective: No acute events overnight. Pt tolerating propanolol. sbp >100, hr >55. No dizziness. BM x 1 overnight. Improvement in abdominal distension from yesterday Postop General: No Complaints Objective Vital Sign- Last 8 Hours Date Time Temp Pulse Resp B/P Pulse Ox O2 Delivery O2 Flow Rate FiO2 05/13/17 08:30 73 05/13/17 06:08 85 05/13/17 05:50 36.6 75 16 137/86 93 Room Air Intake and Output- Last 8 Hour 05/13/17 Cumulative From/Thru 07:00 05/05/17 12:32 - 05/13/17 06:18 Intake Total 50 ml 31201 ml Output Total 83203 ml Balance 50 ml -418 ml Intake Oral 5319 ml IV Total 50 ml 4813 ml Output Urine Total 3700 ml Stool Total 800 ml Urine/Stool Mix 6050 ml # Voids 5 # Bowel Movements 10 General: Oriented X3 Neck: Supple Lungs: Clear to Auscultation Heart: Exam Unremarkable Abdomen: Benign, Soft, Non-tender, Distended, Normoactive bowel tones Extremities: Distal Pulses Palpable Result Diagram: 05/13/17 0610 05/13/17 0610 Assessment & Plan Impression 76-year-old lady with hx cirrhosis by CTabdomen pelvis contrast 05/05/2017, MELD 7/ MELD-Na 14 as of 05/13/2017 complicated by esophageal varcies and portal hypertension gastropathy with slow oozing on egd 05/09/2017. Albumin is low; however she has normal platelets and she is overall a poor historian. 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 The only records in our system on an outpatient basis is in 2013 which showed that she was seen once for numbness and she has a history of peripheral neuropathy. She takes fish oil, naproxen, Coenzyme Q at that time, and this was in 2013. In 2013, blood test was done, which showed hemoglobin 13.2, normal platelets, sed rate was elevated at 77, and LFTs are normal with albumin being 4.1. But, based on the CT scan, there seems to be definitive evidence of ascites with cirrhosis. Echocardiogram showing no right-sided failure or left-sided failure. Ultrasound reviewed. Portal vein was dilated. No clear evidence of portal vein thrombosis. Liver workup so far revealed that her hepatitis A antibody is positive. Alpha- 1 antitrypsin level is normal. Ceruloplasmin level was normal. Mitochondrial/ smooth muscle Ab titer and Anti-smooth muscle Ab both negative. Hepatitis B and C serologies are negative. Ascites analysis was done. The total cells were 402 White blood cell and 22% PMNs. Total protein is 0.8 albumin is 0.2.SAAG > 1.1. Therefore the ascites is most consistent with portal hypertension. Echocardiogram did not reveal a right-sided failure. Patient was already taking antibiotics by the time we did this analysis. Unfortunately ascites analysis was done with couple of days of antibiotics. Would like to consider starting propranolol 10 mg 2 times a day. However propranolol should be not use when patient has spontaneous bacterial peritonitis. I am not sure if she ever has spontaneously bacterial peritonitis. Cell count with differential was not consistent with SBP. However this was obtained after antibiotics were started. CT abdomen pelvis contrast 05/05/2017- IMPRESSION: 1. Nodular liver, esophageal varices, enlarged portal vein, and marked abdominopelvic ascites consistent with stigmata of portal hypertension. This finding was discussed with Dr. Addison at 4:25 PM on 05/05/17. 2. Normal appendix. Diverticulosis. No acute diverticulitis. 05/13/2017- Pt tolerating propanolol 10mg po bid which was started 05/12/2017. sbp >100, hr >55. No dizziness. BM x 1 overnight. Improvement in abdominal distension from yesterday Recommendations: 1. cont Propranolol 10 by mouth twice a day. Hold if systolic pressure less than 100 or heart rate less than 55. Hold If she has lightheadedness or dizziness or She has falls. If she does not tolerate it, consider EGD with banding. At the time of the EGD, she was on warfarin and lovenox due to A. fib. She could not be banded during EGD because of the anticoagulation. 2. If she has refractory ascites, she needs to have banding. We have not medically treated her for ascites, we do not know if she has refractory ascites as she has not had medical treatment. 3. Ascites is consistent with portal hypertension, 2 g sodium diet and Lasix and spironolactone. We will continue with Lasix 20 mg PO once a day and spironolactone 50 mg PO once a day. 4. Her total protein is less than 1.0 and if she indeed had SBP, she will need prophylactic antibiotics for SBP. Patient on ceftriaxone currently. 5. Continue acid suppression. 40mg protonix PO daily. will cont to follow Problems: VTE Prophylaxis: Theraputic Anticoag with Warfarin, SCDs (no SCDs in the setting of lower extremity wounds, heparin contraindicated in the setting of probable GI bleed) Resuscitation Status: DNR/DNI:Do Not Resuscitate/Intubate (discussed with patient on admission ) Ronni Olvera MD May 13, 2017 09:31
--- NOTE | 2017-05-13 12:00 | NUR ---
Mepilex Mepilex placed on sacrum r/t redness beginning. blanchable. Encouraged to sit up in chair and rotate in bed more often. Mepilex placed on both elbows as well r/t redness and pain.
--- NOTE | 2017-05-13 15:28 | PCM.PNMED ---
Subjective Date of Service May 13, 2017 Subjective No complaints, says abd less distended. Exam Vital Signs Vital Sign - Last Date Time Temp Pulse Resp B/P Pulse Ox O2 Delivery O2 Flow Rate FiO2 05/13/17 13:36 36.7 74 20 135/57 Room Air 05/13/17 09:46 94 05/12/17 17:59 2.00 Intake and Output 05/12/17 05/12/17 05/13/17 Cumulative From/Thru 15:00 23:00 07:00 05/05/17 12:32 - 05/13/17 06:18 Intake Total 585 ml 50 ml 39530 ml Output Total 2700 ml 34491 ml Balance -2115 ml 50 ml -418 ml Intake Oral 585 ml 5319 ml IV Total 50 ml 4813 ml Output Urine Total 3700 ml Stool Total 800 ml Urine/Stool Mix 2700 ml 6050 ml # Voids 3 5 # Bowel Movements 10 Exam General: Alert, no acute distress Heart: Regular, HR 70's but telemarketing sales representative reports a brief episode into the 30's with some junctional beats Lungs: Clear ant/lat Abdomen: Distended, bowel tones present, nontender Extremities: No pedal edema IVs and Medications Medications Reviewed: Medications were reviewed in detail Lab and Diagnostics Result Diagram: 05/13/1760905/13/17609 Microbiology Name: ANA ACEVEDO Age/Sex: 76/F Attend Dr: Deric Sykes Acct: [id number] Unit: [id number] Status: ADM IN Location: [facility] 1029-1 Re05/05/17 Disch: Specimen: [id number] Collected: 05/06/17 Status: RES Req#: [id number] Received: 05/06/17 Source: URINE CC Sp Desc : Subm Dr: Chad Morrow MD Ordered: URINE CULT Comments: Collected by Nurse/Unit? Y/N Y Procedure Result Verified Site Microbiology ROBBIN CULT URINE Preliminary 05/08/17-1032 PRELIMINARY ID STREP, PROBABLE ENTEROCOCCI ID AND SENS TO FOLLOW COLONY COUNT/QUANTITY 10-25,000 CFU/ml X-Rays, CTs and MRIs PROCEDURE: CT ABDOMEN AND PELVIS WITH CONTRAST IMPRESSION: 1. Nodular liver, esophageal varices, enlarged portal vein, and marked abdominopelvic ascites consistent with stigmata of portal hypertension. This finding was discussed with Dr. Addison at 4:25 PM on 05/05/17. 2. Normal appendix. Diverticulosis. No acute diverticulitis. Dictated by: Elizabeth Green M.D. on 05/05/2017 at 16:20 Approved by: Elizabeth Green M.D. on 05/05/2017 at 16:26 12-lead ECG Atrial fibrillation with rapid ventricular response with a rate of over 170 bpm Cardiac Echo Impressions Echocardiogram Report Name: ANA ACEVEDO Study Date: 05/07/2017 Height: 67 in Hospital Exam Location: [facility] Weight: 141 lb Gender: Female BSA: 1.7 m2 : 1940 Age: 76 yrs BP: 146/64 mmHg Reason For Study: Congestive Heart Failure Ordering Physician: Performed By: Palma Devries Referring Physician: Radha Sawyer Interpretation Summary The left ventricle is normal in size, wall thickness, and systolic function without any focal wall motion abnormalities. Left ventricular systolic function is normal. The ejection fraction is estimated to be 60-65%. Assessment of diastolic parameters indicates normal left ventricular diastolic function and normal filling pressures. The right ventricle is normal in size, thickness and function. The right ventricular systolic function is normal. The right ventricular systolic pressure is estimated at 33 mmHg assuming a right atrial pressure of 3 mm Hg. There is mild to moderate mitral regurgitation. No other echocardiographic abnormalities seen. Additional Diagnostics PROCEDURE: US ABDOMEN DOPPLER IMPRESSION: 1. Liver demonstrates heterogeneous echotexture consistent with cirrhosis. The main portal vein is dilated. There is hepatopedal flow in main portal vein. 2. Gallbladder sludge. Mild gallbladder wall thickening is present, likely secondary to chronic liver disease process in acute cholecystitis. Recommend clinical correlation. 3. A small amount of ascites. 4. Small bilateral effusions. Dictated by: Leatha Cohen M.D. on 05/07/2017 at 12:57 Assessment & Plan The patient is a 76yo white female with past medical history of Lalita's admitted to the hospitalist service with subacute onset of abdominal distension and worsening abdominal pain. # Abdominal pain, acute, present at the time of admission, improved - concerning for SBP given CT imaging, possibly a/w acute GI bleed, cirrhosis w / ascites and rising white blood cell count - on IV ceftriaxone day #9 of 10, increased dose to 1g q12HR after 1st day - GI consultation has been obtained and appreciate Dr. Morrow's and Dr. Olvera's time and expertise. - A diagnostic and therapeutic paracentesis was performed May 06 with 150 cc removed. Cultures were not performed as patient was already on antibiotics. - Much of the abdominal discomfort has been due to gas and therefore simethicone was started May 11 with considerable relief in the patient's abdominal pain and discomfort. # GI bleed, acute, present at the time of admission. Appears to be resolved. - The patient has normocytic anemia on admission with CT scan concerning for cirrhosis with noted esophageal varices - The patient has guaiac positive stools in ED - trending H&H as needed. hemoglobin has been stable. - advanced diet as tolerated - initially a Pantoprazole gtt, has been changed to daily by mouth dosing - Octreotide gtt has been discontinued - GI consult, recs appreciated. Patient went for a diagnostic EGD May [address] Morrow and was found to have esophageal varices # Portal hypertension - GIs recommendations are as follows: 1. Start propranolol 10 by mouth twice a day starting tomorrow. Hold if systolic pressure less than 100 or heart rate less than 55. Hold If she has lightheadedness or dizziness or She has falls. If she does not tolerate it, consider EGD with banding. At the time of the EGD, she was on warfarin due to A. fib. She could not be banded during EGD because of the anticoagulation. 2. If she has refractory ascites, she needs to have banding. We have not medically treated her for ascites, we do not know if she has refractory ascites as she has not had medical treatment. 3. Ascites is consistent with portal hypertension, 2 g sodium diet and Lasix and spironolactone. We will continue with Lasix 20 mg PO once a day and spironolactone 50 mg PO once a day. 4. Her total protein is less than 1.0 and if she indeed had SBP, she will need prophylactic antibiotics for SBP. Patient on ceftriaxone currently. 5. Continue acid suppression. 40mg protonix PO daily. - Diuresed well yesterday (I/O 885/3150, wt decr 2.4 kg) # Diltiazem therapy - possibly a home med although not listed in med reconciliation or H & P - diagnosis for it unclear - dose increased during hosp stay, reason not clear - because of brief bradycardia with decrease from 60 QID to 30 QID so can tolerate propranolol # Hyponatremia, Na 131 today - most likely related to cirrhosis, follow # Lower extremity wounds, chronic, present at the time admission. 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 This apparently was diagnosed by a network operations specialist. - Edema has improved on oral Lasix and spironolactone -The wound care team has been consulted -We will continue to avoid SCDs at this time Disposition: Dr Sykes discussed with patient's brother and [id number] at bedside at length May 12 and they agree with the above plan. They also would like patient placed in a rehabilitation facility or [facility] facility after discharge so the patient may reach a stable condition prior to them moving her back to [place]. GI Prophylaxis: Proton Pump Inhibitor (pantoprazole gtt) VTE Prophylaxis: Theraputic Anticoag with Warfarin, SCDs (no SCDs in the setting of lower extremity wounds, heparin contraindicated in the setting of probable GI bleed) VTE Mechanical Devices: Intermittant Pneumatic CD Resuscitation Status: DNR/DNI:Do Not Resuscitate/Intubate (discussed with patient on admission ) Lynne Cole MD May 13, 2017 15:28 patient on admission ) Lynne Cole MD May 13, 2017 15:28
--- NOTE | 2017-05-13 17:17 | NUR ---
Ambulation / fatigue Pt fatigues very easily. Ambulates 1-2 assist with FWW to commode or chair. up to chair for most of morning. Becomes very fatigued after exerting any energy. Pt needs encouraged to stand up straight and look up when ambulating. Slow shuffle steps.
[2017-05-14] VITALS (9 sets, daily range): BP systolic 116–132; BP diastolic 48–69; PULSE 66–84; RESP 16–20; O2SAT 93–96
--- NOTE | 2017-05-14 05:27 | NUR ---
GI/Pain pt reports abdominal cramps which she attributes to Lactulose intake. 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 Pt also reports L shoulder pain. Position adjusted to comfort and Tylenol given x1, effective.
[2017-05-14 06:42] LABS: Mean Corpuscular Hemoglobin 27.9 pg (27.0-35.0); Mean Corpuscular Volume 87.4 fL (81-100)
[2017-05-14 06:49] LABS: INR 1.01 ratio
[2017-05-14] MEDS: Pantoprazole 40 mg ER24 Tablet PO SCH (07:29)
[2017-05-14] MEDS: Lactulose 20 Gm/30 mL 30 mL Syrup PO SCH ×3 (08:30→21:56)
--- NOTE | 2017-05-14 09:00 | PCM.PNSURG ---
Subjective Date of Service: May 14, 2017 Date of Service: May 14, 2017 Visit Information: Subjective: no acute events overnight. sbp 116- 144 overnight. hr 70-81. tolerating propanolol well. bm x 2 yesterday. pt reports further improvement of abdominal distension from yesterday. no dizziness. Postop General: No Complaints Objective Vital Sign- Last 8 Hours Date Time Temp Pulse Resp B/P Pulse Ox O2 Delivery O2 Flow Rate FiO2 05/14/17 08:29 76 05/14/17 07:26 36.6 76 16 116/48 96 Room Air 05/14/17 05:20 70 05/14/17 05:02 36.7 74 16 119/49 94 Room Air Intake and Output- Last 8 Hour 05/14/17 Cumulative From/Thru 07:00 05/05/17 12:32 - 05/14/17 05:46 Intake Total 150 ml 13445 ml Output Total 1700 ml 67551 ml Balance -1550 ml -1948 ml Intake Oral 150 ml 6569 ml IV Total 4883 ml Output Urine Total 100 ml 4550 ml Stool Total 1250 ml 2050 ml Urine/Stool Mix 350 ml 6800 ml # Voids 5 # Bowel Movements 12 General: Oriented X3 Neck: Supple Heart: Exam Unremarkable Abdomen: Benign, Soft, Non-tender, Distended, Normoactive bowel tones Extremities: Distal Pulses Palpable Result Diagram: 05/14/17 0603 05/14/17 0603 Assessment & Plan Impression 76-year-old lady with hx cirrhosis by CTabdomen pelvis contrast 05/05/2017, MELD 7/ MELD-Na 14 as of 05/13/2017 complicated by esophageal varcies and portal hypertension gastropathy with slow oozing on egd 05/09/2017. Albumin is low; however she has normal platelets and she is overall a poor historian. 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 The only records in our system on an outpatient basis is in 2013 which showed that she was seen once for numbness and she has a history of peripheral neuropathy. She takes fish oil, naproxen, Coenzyme Q at that time, and this was in 2013. In 2013, blood test was done, which showed hemoglobin 13.2, normal platelets, sed rate was elevated at 77, and LFTs are normal with albumin being 4.1. But, based on the CT scan, there seems to be definitive evidence of ascites with cirrhosis. Echocardiogram showing no right-sided failure or left-sided failure. Ultrasound reviewed. Portal vein was dilated. No clear evidence of portal vein thrombosis. Liver workup so far revealed that her hepatitis A antibody is positive. Alpha- 1 antitrypsin level is normal. Ceruloplasmin level was normal. Mitochondrial/ smooth muscle Ab titer and Anti-smooth muscle Ab both negative. Hepatitis B and C serologies are negative. Ascites analysis was done. The total cells were 402 White blood cell and 22% PMNs. Total protein is 0.8 albumin is 0.2.SAAG > 1.1. Therefore the ascites is most consistent with portal hypertension. Echocardiogram did not reveal a right-sided failure. Patient was already taking antibiotics by the time we did this analysis. Unfortunately ascites analysis was done with couple of days of antibiotics. Would like to consider starting propranolol 10 mg 2 times a day. However propranolol should be not use when patient has spontaneous bacterial peritonitis. I am not sure if she ever has spontaneously bacterial peritonitis. Cell count with differential was not consistent with SBP. However this was obtained after antibiotics were started. CT abdomen pelvis contrast 05/05/2017- IMPRESSION: 1. Nodular liver, esophageal varices, enlarged portal vein, and marked abdominopelvic ascites consistent with stigmata of portal hypertension. This finding was discussed with Dr. Addison at 4:25 PM on 05/05/17. 2. Normal appendix. Diverticulosis. No acute diverticulitis. 05/13/2017- Pt tolerating propanolol 10mg po bid which was started 05/12/2017. sbp >100, hr >55. No dizziness. BM x 1 overnight. Improvement in abdominal distension from yesterday 05/14/2017- no acute events overnight. sbp 116- 144 overnight. hr 70-81. tolerating propanolol well. bm x 2 yesterday. pt reports further improvement of abdominal distension from yesterday. no dizziness. Recommendations: 1. cont Propranolol 10 by mouth twice a day. Hold if systolic pressure less than 100 or heart rate less than 55. Hold If she has lightheadedness or dizziness or She has falls. If she does not tolerate it, consider EGD with banding. At the time of the EGD, she was on warfarin and lovenox due to A. fib. She could not be banded during EGD because of the anticoagulation. 2. If she has refractory ascites, she needs to have banding. We have not medically treated her for ascites, we do not know if she has refractory ascites as she has not had medical treatment. 3. Ascites is consistent with portal hypertension, 2 g sodium diet and Lasix and spironolactone. We will continue with Lasix 20 mg PO once a day and spironolactone 50 mg PO once a day. 4. Her total protein is less than 1.0 and if she indeed had SBP, she will need prophylactic antibiotics for SBP. Patient on ceftriaxone currently. 5. Continue acid suppression. 40mg protonix PO daily. Dr. Morrow returns tomorrow to f/u with pt. Problems: VTE Prophylaxis: Theraputic Anticoag with Warfarin, SCDs (no SCDs in the setting of lower extremity wounds, heparin contraindicated in the setting of probable GI bleed) Resuscitation Status: DNR/DNI:Do Not Resuscitate/Intubate (discussed with patient on admission ) Ronni Olvera MD May 14, 2017 09:00
[2017-05-14] MEDS: cefTRIAXone Inj 1,000 MG in Dextrose 5% Minibag Plus 50 ML IV SCH ×2 (10:04→22:00)
[2017-05-14] MEDS: Multivit-Miner-Folic Acid-Iron Tablet PO SCH (10:10)
[2017-05-14] MEDS ORDERED: 0.9% Sodium Chloride 100 ML ONE (11:36)
--- NOTE | 2017-05-14 14:13 | PCM.PNMED ---
Subjective Date of Service May 14, 2017 Subjective Does not like lactulose, especially at bedtime, as she has to get up to recover soon after. Exam Vital Signs Vital Sign - Last Date Time Temp Pulse Resp B/P Pulse Ox O2 Delivery O2 Flow Rate FiO2 05/14/17 13:10 Room Air 05/14/17 12:13 36.6 66 16 132/58 95 05/12/17 17:59 2.00 Intake and Output 05/13/17 05/13/17 05/14/17 Cumulative From/Thru 15:00 23:00 07:00 05/05/17 12:32 - 05/14/17 05:46 Intake Total 150 ml 1020 ml 150 ml 51350 ml Output Total 400 ml 750 ml 1700 ml 12006 ml Balance -250 ml 270 ml -1550 ml -1948 ml Intake Oral 150 ml 950 ml 150 ml 6569 ml IV Total 70 ml 4883 ml Output Urine Total 750 ml 100 ml 4550 ml Stool Total 1250 ml 2050 ml Urine/Stool Mix 400 ml 350 ml 6800 ml # Voids 5 # Bowel Movements 2 12 Exam General: Alert, oriented to name and place, no acute distress Weight: stable Heart: Regular (per telephonic rn SR 7-'s-80's, no further bradycardic spells) Lungs: Clear Abdomen: Distended, tympanitic, non-tender, BT present Extremities: 1-2+ pedal edema IVs and Medications Medications Reviewed: Medications were reviewed in detail Lab and Diagnostics Result Diagram: 05/14/1760205/14/17 0603 Microbiology Name: ANA ACEVEDO Age/Sex: 76/F Attend Dr: Deric Sykes Acct: [id number] Unit: [id number] Status: ADM IN Location: [facility] [place] 1029-1 Re05/05/17 Disch: Specimen: [id number] Collected: 05/06/17 Status: RES Req#: [id number] Received: 05/06/17 Source: URINE CC Sp Desc : Subm Dr: Chad Morrow MD Ordered: URINE CULT Comments: Collected by Nurse/Unit? Y/N Y Procedure Result Verified Site Microbiology ROBBIN CULT URINE Preliminary 05/08/17 PRELIMINARY ID STREP, PROBABLE ENTEROCOCCI ID AND SENS TO FOLLOW COLONY COUNT/QUANTITY 10-25,000 CFU/ml X-Rays, CTs and MRIs PROCEDURE: CT ABDOMEN AND PELVIS WITH CONTRAST IMPRESSION: 1. Nodular liver, esophageal varices, enlarged portal vein, and marked abdominopelvic ascites consistent with stigmata of portal hypertension. This finding was discussed with Dr. Addison at 4:25 PM on 05/05/17. 2. Normal appendix. Diverticulosis. No acute diverticulitis. Dictated by: Elizabeth Green M.D. on 05/05/2017 at 16:20 Approved by: Elizabeth Green M.D. on 05/05/2017 at 16:26 12-lead ECG Atrial fibrillation with rapid ventricular response with a rate of over 170 bpm Cardiac Echo Impressions Echocardiogram Report Name: ANA ACEVEDO Study Date: 05/07/2017 Height: 67 in Hospital Exam Location: [facility] Weight: 141 lb Gender: Female BSA: 1.7 m2 : 1940 Age: 76 yrs BP: 146/64 mmHg Reason For Study: Congestive Heart Failure Ordering Physician: Performed By: Palma Devries Referring Physician: Radha Sawyer Interpretation Summary The left ventricle is normal in size, wall thickness, and systolic function without any focal wall motion abnormalities. Left ventricular systolic function is normal. The ejection fraction is estimated to be 60-65%. Assessment of diastolic parameters indicates normal left ventricular diastolic function and normal filling pressures. The right ventricle is normal in size, thickness and function. The right ventricular systolic function is normal. The right ventricular systolic pressure is estimated at 33 mmHg assuming a right atrial pressure of 3 mm Hg. There is mild to moderate mitral regurgitation. No other echocardiographic abnormalities seen. Additional Diagnostics PROCEDURE: US ABDOMEN DOPPLER IMPRESSION: 1. Liver demonstrates heterogeneous echotexture consistent with cirrhosis. The main portal vein is dilated. There is hepatopedal flow in main portal vein. 2. Gallbladder sludge. Mild gallbladder wall thickening is present, likely secondary to chronic liver disease process in acute cholecystitis. Recommend clinical correlation. 3. A small amount of ascites. 4. Small bilateral effusions. Dictated by: Leatha Cohen M.D. on 05/07/2017 at 12:57 Assessment & Plan The patient is a 76yo white female with past medical history of Lalita's admitted to the hospitalist service with subacute onset of abdominal distension and worsening abdominal pain. # Abdominal pain, acute, present at the time of admission, improved - concerning for SBP given CT imaging, possibly a/w acute GI bleed, cirrhosis w / ascites and rising white blood cell count - on IV ceftriaxone day #10 of 10, increased dose to 1g q12HR after 1st day, will DC after today, discuss with Dr Morrow tomorrow if she needs prophylactic antibiotics for SBP. - GI consultation has been obtained and appreciate Dr. Morrow's and Dr. Olvera's time and expertise. - A diagnostic and therapeutic paracentesis was performed May 06 with 150 cc removed. Cultures were not performed as patient was already on antibiotics. - Much of the abdominal discomfort has been due to gas and therefore simethicone was started May 11 with considerable relief in the patient's abdominal pain and discomfort. # GI bleed, acute, present at the time of admission. Appears to be resolved. - The patient has normocytic anemia on admission with CT scan concerning for cirrhosis with noted esophageal varices - The patient has guaiac positive stools in ED - trending H&H as needed. hemoglobin has been stable. - advanced diet as tolerated - initially a Pantoprazole gtt, has been changed to daily by mouth dosing - Octreotide gtt has been discontinued - GI consult, recs appreciated. Patient went for a diagnostic EGD May [address] Morrow and was found to have esophageal varices # Portal hypertension - GIs recommendations are as follows: 1. Start propranolol 10 by mouth twice a day starting tomorrow. Hold if systolic pressure less than 100 or heart rate less than 55. Hold If she has lightheadedness or dizziness or She has falls. If she does not tolerate it, consider EGD with banding. At the time of the EGD, she was on warfarin due to A. fib. She could not be banded during EGD because of the anticoagulation. 2. If she has refractory ascites, she needs to have banding. We have not medically treated her for ascites, we do not know if she has refractory ascites as she has not had medical treatment. 3. Ascites is consistent with portal hypertension, 2 g sodium diet and Lasix and spironolactone. We will continue with Lasix 20 mg PO once a day and spironolactone 50 mg PO once a day. 4. Her total protein is less than 1.0 and if she indeed had SBP, she will need prophylactic antibiotics for SBP. Patient on ceftriaxone currently. 5. Continue acid suppression. 40mg protonix PO daily. - Diuresed well May 12 (I/O 885/3150, wt decr 2.4 kg), weight stable since, dose have LE edema - on lactulose but no ammonia level done, will do with am labs, per her request will change to bid dose so she doesn't have to take in evening # Diltiazem therapy - possibly a home med although not listed in med reconciliation or H & P - diagnosis for it unclear but telephonic rn states she did have ~ 2 hrs of Afib on May 08 and rate did get up to 150 - dose increased during hosp stay, reason not clear - because of brief bradycardia with decrease from 60 QID to 30 QID so she can tolerate propranolol # Paroxysmal A fib - A fib not listed in PMH in H&P - currently in SR but [employer] states she did have ~ 2 hrs of Afib on May 08 and rate did get up to 150 - warfarin therapy mentioned but not listed as a home med - apparently had a few doses of warfarin here but not continued and INR never bumped up # Urine culture from May 06 with enterococcus - don't see any treatment given for this - will repeat UA and urine culture # Hyponatremia, new onset May 13 with Na 131, today 133 - most likely related to cirrhosis, follow # Lower extremity wounds, chronic, present at the time admission. 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 This apparently was diagnosed by a brass finisher. - Edema has improved on oral Lasix and spironolactone -The wound care team has been consulted -We will continue to avoid SCDs at this time Disposition: Dr Sykes discussed with patient's brother and [id number] at bedside at length May 12 and they agree with the above plan. They also would like patient placed in a rehabilitation facility or shelter facility after discharge so the patient may reach a stable condition prior to them moving her back to [place]. SW working on finding a placement for her. GI Prophylaxis: Proton Pump Inhibitor (pantoprazole gtt) VTE Prophylaxis: Theraputic Anticoag with Warfarin, SCDs (no SCDs in the setting of lower extremity wounds, heparin contraindicated in the setting of probable GI bleed) VTE Mechanical Devices: Intermittant Pneumatic CD Resuscitation Status: DNR/DNI:Do Not Resuscitate/Intubate (discussed with patient on admission ) Lynne Cole MD May 14, 2017 14:13
--- NOTE | 2017-05-14 15:51 | NUR ---
JOYCELYN requested by [facility] JOYCELYN to call [facility]. JOYCELYN spoke with Kelsey in admissions who states she still has some questions about pt and would like updated clinicals faxed for review to [phone]. JOYCELYN faxed packet of information to Kelsey to review. JOYCELYN will continue to follow. SCOTT Wang
[2017-05-15 00:09] VITALS: BP 142/76; PULSE 89; RESP 18; O2SAT 95
--- NOTE | 2017-05-15 03:05 | NUR ---
Abdominal Distention On initial assessment, patients abdomen appears full and distended. Patient states slight pain with auscultation. Patient mumbles when talking but answers appropriately. Patient continues to have loose bowel movements which inhibits UA sampling. VSS. Call light within reach. Care continues.
[2017-05-15] MEDS: Pantoprazole 40 mg ER24 Tablet PO SCH (06:04)
[2017-05-15 06:40] LABS: Mean Corpuscular Hemoglobin 27.9 pg (27.0-35.0); Mean Corpuscular Volume 86.7 fL (81-100)
[2017-05-15 07:30] VITALS: BP 132/68; PULSE 72; RESP 20; O2SAT 93
[2017-05-15] MEDS: Lactulose 20 Gm/30 mL 30 mL Syrup PO SCH ×2 (08:08→17:40)
[2017-05-15] MEDS: cefTRIAXone Inj 1,000 MG in Dextrose 5% Minibag Plus 50 ML IV SCH (08:08)
[2017-05-15] MEDS: Multivit-Miner-Folic Acid-Iron Tablet PO SCH (08:09)
--- NOTE | 2017-05-15 08:41 | PCM.PNMED ---
Subjective Date of Service May 15, 2017 Subjective No complaints Exam Vital Signs Vital Sign - Last Date Time Temp Pulse Resp B/P Pulse Ox O2 Delivery O2 Flow Rate FiO2 05/15/17 07:30 37.2 72 20 132/68 93 Room Air 05/12/17 17:59 2.00 Intake and Output 05/14/17 05/14/17 05/15/17 Cumulative From/Thru 15:00 23:00 07:00 05/05/17 12:32 - 05/14/17 21:58 Intake Total 990 ml 53298 ml Output Total 1200 ml 88823 ml Balance -210 ml -2158 ml Intake Oral 920 ml 7489 ml IV Total 70 ml 4953 ml Output Urine Total 600 ml 5150 ml Stool Total 2050 ml Urine/Stool Mix 600 ml 7400 ml # Voids 5 # Bowel Movements 12 Exam General: Alert, oriented x 2, no acute distress Heart: Regular Lungs: Clear anteriorly and laterally Abdomen: Soft, mod distended, non-tender, BT present Extremities: Tr-1+ pedal edema IVs and Medications Medications Reviewed: Medications were reviewed in detail Lab and Diagnostics Result Diagram: 05/15/1762105/15/1722 Microbiology Name: ANA ACEVEDO Age/Sex: 76/F Attend Dr: Deric Sykes Acct: [id number] Unit: [id number] Status: ADM IN Location: [facility] [place] 1029-1 Re05/05/17 Disch: Specimen: [id number] Collected: 05/06/17 Status: RES Req#: [id number] Received: 05/06/17 Source: URINE CC Sp Desc : Subm Dr: Chad Morrow MD Ordered: URINE CULT Comments: Collected by Nurse/Unit? Y/N Y Procedure Result Verified Site Microbiology ROBBIN CULT URINE Preliminary 05/08/17-1032 PRELIMINARY ID STREP, PROBABLE ENTEROCOCCI ID AND SENS TO FOLLOW COLONY COUNT/QUANTITY 10-25,000 CFU/ml X-Rays, CTs and MRIs PROCEDURE: CT ABDOMEN AND PELVIS WITH CONTRAST IMPRESSION: 1. Nodular liver, esophageal varices, enlarged portal vein, and marked abdominopelvic ascites consistent with stigmata of portal hypertension. This finding was discussed with Dr. Addison at 4:25 PM on 05/05/17. 2. Normal appendix. Diverticulosis. No acute diverticulitis. Dictated by: Elizabeth Green M.D. on 05/05/2017 at 16:20 Approved by: Elizabeth Green M.D. on 05/05/2017 at 16:26 12-lead ECG Atrial fibrillation with rapid ventricular response with a rate of over 170 bpm Cardiac Echo Impressions Echocardiogram Report Name: ANA ACEVEDO Study Date: 05/07/2017 Height: 67 in Hospital Exam Location: [facility] Weight: 141 lb Gender: Female BSA: 1.7 m2 : 1940 Age: 76 yrs BP: 146/64 mmHg Reason For Study: Congestive Heart Failure Ordering Physician: Performed By: Palma Devries Referring Physician: Radha Sawyer Interpretation Summary The left ventricle is normal in size, wall thickness, and systolic function without any focal wall motion abnormalities. Left ventricular systolic function is normal. The ejection fraction is estimated to be 60-65%. Assessment of diastolic parameters indicates normal left ventricular diastolic function and normal filling pressures. The right ventricle is normal in size, thickness and function. The right ventricular systolic function is normal. The right ventricular systolic pressure is estimated at 33 mmHg assuming a right atrial pressure of 3 mm Hg. There is mild to moderate mitral regurgitation. No other echocardiographic abnormalities seen. Additional Diagnostics PROCEDURE: US ABDOMEN DOPPLER IMPRESSION: 1. Liver demonstrates heterogeneous echotexture consistent with cirrhosis. The main portal vein is dilated. There is hepatopedal flow in main portal vein. 2. Gallbladder sludge. Mild gallbladder wall thickening is present, likely secondary to chronic liver disease process in acute cholecystitis. Recommend clinical correlation. 3. A small amount of ascites. 4. Small bilateral effusions. Dictated by: Leatha Cohen M.D. on 05/07/2017 at 12:57 Assessment & Plan The patient is a 76yo white female with past medical history of Lalita's admitted to the hospitalist service with subacute onset of abdominal distension and worsening abdominal pain. # Abdominal pain, acute, present at the time of admission, improved - concerning for SBP given CT imaging, possibly a/w acute GI bleed, cirrhosis w / ascites and rising white blood cell count - on IV ceftriaxone day #10 of 10, increased dose to 1g q12HR after 1st day, will DC today - discussed with Dr Morrow if she needs prophylactic antibiotics for SBP, he was uncertain and plans to see pt this evening and decide - GI consultation has been obtained and appreciate Dr. Morrow's and Dr. Olvera's time and expertise. - A diagnostic and therapeutic paracentesis was performed May 06 with 150 cc removed. Cultures were not performed as patient was already on antibiotics. - Much of the abdominal discomfort has been due to gas and therefore simethicone was started May 11 with considerable relief in the patient's abdominal pain and discomfort. # GI bleed, acute, present at the time of admission. Appears to be resolved. - The patient has normocytic anemia on admission with CT scan concerning for cirrhosis with noted esophageal varices - The patient has guaiac positive stools in ED - trending H&H as needed. hemoglobin has been stable. - advanced diet as tolerated - initially a Pantoprazole gtt, has been changed to daily by mouth dosing - Octreotide gtt has been discontinued - GI consult, recs appreciated. Patient went for a diagnostic EGD May [address] Morrow and was found to have esophageal varices # Portal hypertension - per GIs recommendations she is on propranolol 10 by mouth twice a day, Lasix 20 mg PO once a day and spironolactone 50 mg PO once a day and 2 g sodium diet - is tolerating propranolol well - Diuresed well May 12 (I/O 885/3150, wt decr 2.4 kg), and weight down another 1.6 kg since then, does have LE edema - Continue acid suppression. 40mg protonix PO daily (per GI) - has finished 10 days of ceftriaxone, discussed with Dr Morrow on phone, he will see pt this evening and decide if prophylactic antibiotics indicated addendum: Dr Morrow will await C dif results before deciding on prophylactic antibiotic or not, so probably tomorrow - per her request changed lactulose to bid dose so she doesn't have to take in evening and be up to commode at night, Dr Morrow okay with this - addendum: seen this evening by Dr Morrow who will stop lactulose and start rifaximin - last 24 hrs 1250 cc stool (plus some stool mixed with urine) charted by nursing staff, Dr Morrow feels this is excessive for lactulose and recommends check for C dif which I've ordered # Diltiazem therapy - possibly a home med although not listed in med reconciliation or H & P - diagnosis for it unclear but [employer] states she did have ~ 2 hrs of Afib on May 08 and rate did get up to 150 - dose increased during hosp stay, reason not clear - because of brief bradycardic episode May 13 was decreased from 60 QID to 30 QID so she can tolerate propranolol - [employer] this am reports has been in SR with rate 70s-80s and no bradycardic episodes past 24 hrs # Paroxysmal A fib - A fib not listed in PMH in H&P - currently in SR but [employer] states she did have ~ 2 hrs of Afib on May 08 and rate did get up to 150 - warfarin therapy mentioned but not listed as a home med - apparently had a few doses of warfarin here but not continued and INR never bumped up # Urine culture from May 06 with enterococcus - don't see any treatment given for this - will repeat UA and urine culture (ordered May 14 obtained today), WBC 6-10, culture pending - if otherwise ready to go to SNF could treat enterococcus with oral antibiotic pending culture results # Hyponatremia, new onset May 13 with Na 131, today and yesterday 133 - most likely related to cirrhosis, follow # Lower extremity wounds, chronic, present at the time admission. 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 - Edema has improved on oral Lasix and spironolactone -The wound care team has been consulted -We will continue to avoid SCDs at this time Disposition: SNF placement has been found. They were reluctant to take her today when still some unresolved issues (SBP prophylaxis or not? enterococcus in urine May 06). Possibly to SNF tomorrow. GI Prophylaxis: Proton Pump Inhibitor (pantoprazole gtt) VTE Prophylaxis: Theraputic Anticoag with Warfarin, SCDs (no SCDs in the setting of lower extremity wounds, heparin contraindicated in the setting of probable GI bleed) VTE Mechanical Devices: Intermittant Pneumatic CD Resuscitation Status: DNR/DNI:Do Not Resuscitate/Intubate (discussed with patient on admission ) Lynne Cole MD May 15, 2017 08:40 Lynne Cole MD May 15, 2017 08:40
--- NOTE | 2017-05-15 10:11 | NUR ---
Left message for admissions at [facility] . PIE [employer]PER faxed updated information on patient yesterday. Let them know I am looking for formal acceptance and when expected bed would be available. Updated [facility]IE [employer]
[2017-05-15 10:27] VITALS: PULSE 72
--- NOTE | 2017-05-15 10:30 | PCM.PNMED ---
Subjective Date of Service May 15, 2017 Subjective Ana is feeling better this morning. She had just worked with physical therapy when I met with her which was helpful. She is having at least daily bowel movements. She does experience some bloating with the lactulose. She has no nausea and has not vomited. She has not experienced any lightheadedness or dizziness. Exam Vital Signs Vital Sign - Last Date Time Temp Pulse Resp B/P Pulse Ox O2 Delivery O2 Flow Rate FiO2 05/15/17 07:30 37.2 72 20 132/68 93 Room Air 05/12/17 17:59 2.00 Intake and Output 05/14/17 05/14/17 05/15/17 Cumulative From/Thru 15:00 23:00 07:00 05/05/17 12:32 - 05/14/17 21:58 Intake Total 990 ml 54133 ml Output Total 1200 ml 48944 ml Balance -210 ml -2158 ml Intake Oral 920 ml 7489 ml IV Total 70 ml 4953 ml Output Urine Total 600 ml 5150 ml Stool Total 2050 ml Urine/Stool Mix 600 ml 7400 ml # Voids 5 # Bowel Movements 12 Exam General: No acute distress, cachectic, elderly, appropriately interactive HEENT: Normocephalic, atraumatic. External ears without defect. Anicteric sclerae, moist conjunctivae, and no lid lag. Oropharynx free of erythema and cobble stoning with moist mucosa. Neck: Supple with full range of motion. Cardiovascular: Regular rate and rhythm with no murmurs, rubs, or gallops appreciated Pulmonary: Clear to auscultation bilaterally with no crackles, wheezes, or rhonchi. Mildly increased respiratory effort. Abdomen: Bowel tones present. non tender, mild-moderately distended, less so than 3 days ago.Soft. Extremities: No clubbing, cyanosis, or lymphadenopathy appreciated. mild pitting edema to above the knee bilaterally. Skin: Normal temperature, turgor, and texture; venous stasis changes in gaiter area of legs bilaterally Neurological: Cranial nerves grossly intact. Psychiatric: Normal mood and affect. Aware of situation. Lab and Diagnostics Result Diagram: 05/15/17 0605/15/17 0622 Microbiology Name: ANA ACEVEDO Age/Sex: 76/F Attend Dr: Deric Sykes Acct: [id number] Unit: [id number] Status: ADM IN Location[place] [facility] [place] 1029-1 Re05/05/17 Disch: Specimen: [id number] Collected: 05/06/17-1624 Status: RES Req#: [id number] Received: 05/06/17 Source: URINE CC Sp Desc : Subm Dr: Chad Morrow MD Ordered: URINE CULT Comments: Collected by Nurse/Unit? Y/N Y Procedure Result Verified Site Microbiology ROBBIN CULT URINE Preliminary 05/08/17-1032 PRELIMINARY ID STREP, PROBABLE ENTEROCOCCI ID AND SENS TO FOLLOW COLONY COUNT/QUANTITY 10-25,000 CFU/ml X-Rays, CTs and MRIs PROCEDURE: CT ABDOMEN AND PELVIS WITH CONTRAST IMPRESSION: 1. Nodular liver, esophageal varices, enlarged portal vein, and marked abdominopelvic ascites consistent with stigmata of portal hypertension. This finding was discussed with Dr. Addison at 4:25 PM on 05/05/17. 2. Normal appendix. Diverticulosis. No acute diverticulitis. Dictated by: Elizabeth Green M.D. on 05/05/2017 at 16:20 Approved by: Elizabeth Green M.D. on 05/05/2017 at 16:26 12-lead ECG Atrial fibrillation with rapid ventricular response with a rate of over 170 bpm Cardiac Echo Impressions Echocardiogram Report Name: ANA ACEVEDO Study Date: 05/07/2017 Height: 67 in Hospital Exam Location: [facility] Weight: 141 lb Gender: Female BSA: 1.7 m2 : 1940 Age: 76 yrs BP: 146/64 mmHg Reason For Study: Congestive Heart Failure Ordering Physician: Performed By: Palma Devries Referring Physician: Radha Saywer Interpretation Summary The left ventricle is normal in size, wall thickness, and systolic function without any focal wall motion abnormalities. Left ventricular systolic function is normal. The ejection fraction is estimated to be 60-65%. Assessment of diastolic parameters indicates normal left ventricular diastolic function and normal filling pressures. The right ventricle is normal in size, thickness and function. The right ventricular systolic function is normal. The right ventricular systolic pressure is estimated at 33 mmHg assuming a right atrial pressure of 3 mm Hg. There is mild to moderate mitral regurgitation. No other echocardiographic abnormalities seen. Additional Diagnostics PROCEDURE: US ABDOMEN DOPPLER IMPRESSION: 1. Liver demonstrates heterogeneous echotexture consistent with cirrhosis. The main portal vein is dilated. There is hepatopedal flow in main portal vein. 2. Gallbladder sludge. Mild gallbladder wall thickening is present, likely secondary to chronic liver disease process in acute cholecystitis. Recommend clinical correlation. 3. A small amount of ascites. 4. Small bilateral effusions. Dictated by: Leatha Cohen M.D. on 05/07/2017 at 12:57 Assessment & Plan 76-year-old lady with hx cirrhosis by CTabdomen pelvis contrast 05/05/2017, MELD 7/ MELD-Na 14 as of 05/13/2017 complicated by esophageal varcies and portal hypertension gastropathy with slow oozing on egd 05/09/2017. Albumin is low; however she has normal platelets and she is overall a poor historian. 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 The only records in our system on an outpatient basis is in 2013 which showed that she was seen once for numbness and she has a history of peripheral neuropathy. She takes fish oil, naproxen, Coenzyme Q at that time, and this was in 2013. In 2014, blood test was done, which showed hemoglobin 13.2, normal platelets, sed rate was elevated at 77, and LFTs are normal with albumin being 4.1. But, based on the CT scan, there seems to be definitive evidence of ascites with cirrhosis. Echocardiogram showing no right-sided failure or left-sided failure. Ultrasound reviewed. Portal vein was dilated. No clear evidence of portal vein thrombosis. Liver workup so far revealed that her hepatitis A antibody is positive. Alpha- 1 antitrypsin level is normal. Ceruloplasmin level was normal. Mitochondrial/ smooth muscle Ab titer and Anti-smooth muscle Ab both negative. Hepatitis B and C serologies are negative. Ascites analysis was done. The total cells were 402 White blood cell and 22% PMNs. Total protein is 0.8 albumin is 0.2.SAAG > 1.1. Therefore the ascites is most consistent with portal hypertension. Echocardiogram did not reveal a right-sided failure. Patient was already taking antibiotics by the time we did this analysis. Unfortunately ascites analysis was done with couple of days of antibiotics. Would like to consider starting propranolol 10 mg 2 times a day. However propranolol should be not use when patient has spontaneous bacterial peritonitis. I am not sure if she ever has spontaneously bacterial peritonitis. Cell count with differential was not consistent with SBP. However this was obtained after antibiotics were started. CT abdomen pelvis contrast 05/05/2017- IMPRESSION: 1. Nodular liver, esophageal varices, enlarged portal vein, and marked abdominopelvic ascites consistent with stigmata of portal hypertension. This finding was discussed with Dr. Addison at 4:25 PM on 05/05/17. 2. Normal appendix. Diverticulosis. No acute diverticulitis. 05/13/2017- Pt tolerating propanolol 10mg po bid which was started 05/12/2017. sbp >100, hr >55. No dizziness. BM x 1 overnight. Improvement in abdominal distension from yesterday 05/14/2017- no acute events overnight. sbp 116- 144 overnight. hr 70-81. tolerating propanolol well. bm x 2 yesterday. pt reports further improvement of abdominal distension from yesterday. no dizziness. Recommendations: 1. Continue propranolol 10 mg by mouth twice a day. Hold if systolic pressure less than 100 or heart rate less than 55. Hold If she has lightheadedness or dizziness or if she has falls. If she does not tolerate it, consider EGD with banding. At the time of the EGD, she was on warfarin and lovenox due to A. fib. She could not be banded during EGD because of the anticoagulation. 2. If she has refractory ascites, she needs to have banding. We have not medically treated her for ascites, we do not know if she has refractory ascites as she has not had medical treatment. 3. Ascites is consistent with portal hypertension, 2 g sodium diet and Lasix and spironolactone. We will continue with Lasix 20 mg PO once a day and spironolactone 50 mg PO once a day. 4. Her total protein in peritoneal fluid is less than 1.0 and if she indeed had SBP, she will need prophylactic antibiotics for SBP. Patient on ceftriaxone currently day 08/22. We will wait to decide on oral prophylaxis until C diff study has come back. 5. Continue acid suppression. 40mg protonix PO daily. 6. Decrease lactulose due to diarrhea, start rifaximin 550mg BID I have seen and examined the patient with the resident. Agree with above. GI Prophylaxis: Proton Pump Inhibitor (pantoprazole gtt) VTE Prophylaxis: Theraputic Anticoag with Warfarin, SCDs (no SCDs in the setting of lower extremity wounds, heparin contraindicated in the setting of probable GI bleed) VTE Mechanical Devices: Intermittant Pneumatic CD Resuscitation Status: DNR/DNI:Do Not Resuscitate/Intubate (discussed with patient on admission ) copies to: Chad Morrow MD, Erika R DO May 15, 2017 08:40 Chad Morrow MD May 18, 2017 12:58
--- NOTE | 2017-05-15 10:36 | NUR ---
Social Work: Delayed Discharge D: EMR reviewed. Pt is on day 10 of hospitalization. Per MD in AM multi-disciplinary rounds, pt is medically stable and will discharge today. JOYCELYN placed T/C to Kelsey at [facility] in [place] regarding pt's pending discharge. Kelsey asked if pt's UA results have come back and if there is a clear care plan indicated in the progress notes/discharge instructions. JOYCELYN saw that a UA was ordered on 05/14. JOYCELYN called lab to determine if UA sample had been received/completed. Lab reported that they have not received a UA sample. JOYCELYN spoke with MD and notified MD that pt will need to have UA results and clear care plan in order to [facility] to take pt at time of discharge. MD stated that UA has not been done and results are not likely to come back today. MD stated that based on the SNFs need to UA results and care plan, pt will not discharge today as planned. Pt likely to discharge tommorrow pending results. JOYCELYN left message with Kelsey at [facility] in [place] stating that pt's UA results will not be available until tomorrow and pt will not discharge today. JOYCELYN updated RN and SW UA. A: Pt who has dementia at baseline and for whom a SNF via cabulance has been deemed medically necessary. P: Per Kelsey at [facility] Admissions, they will accept pt if repeat UA results are completed and indicated in EMR. Kelsey also stated that the discharge order must acknowledge whether or not pt is on precautions. Additionally, based on what Kelsey read from faxed H&P and progress notes, pt was being assessed for possible paracentesis and liver metastasis - for pt to be accepted, discharge orders must address if pt has paracentesis and/or liver metastasis and if so, MD must document care plan. SW to fax updated discharge/progress notes outlining information above. Once UA results are completed, paracentesis and/or liver metastasis assessment is complete, and care plan is addressed in discharge order, please fax to [phone]. JOYCELYN will continue to follow. SCOTT Crisostomo
[2017-05-15 10:43] VITALS: BP 125/51; PULSE 70; RESP 18; O2SAT 96
[2017-05-15 11:30] LABS: APPEARANCE,URINE SLIGHTLY CLOUDY (CLEAR,HAZY); COLOR,URINE YELLOW (YELLOW); OCCULT BLOOD,URINE SMALL (NEGATIVE); PH,URINE 5.5 (5.0-8.0); UROBILINOGEN,URINE NORMAL (NORMAL)
[2017-05-15 11:34] LABS: ICTOTEST,URINE POSITIVE (Negative)
[2017-05-15 14:57] VITALS: BP 155/67; PULSE 76; RESP 18; O2SAT 93
--- NOTE | 2017-05-15 18:25 | NUR ---
Activity Patient alert and oriented to self this shift. Patient ambulating to bedside commode as needed. Care is ongoing.
[2017-05-15 20:00] VITALS: PULSE 72
[2017-05-16] VITALS (7 sets, daily range): BP systolic 123–130; BP diastolic 36–54; PULSE 69–80; RESP 16–18; O2SAT 93–96
--- NOTE | 2017-05-16 06:06 | NUR ---
Sleep Patient has been sleeping most of shift. No complaints of pain. Patient stated she was glad the Lactulose was discontinued because it was moving through her too quickly. Patient alert to self and place, but showed signs of confusion multiple times during shift. Vitals stable. Tele sinus 70's. Care continues.
[2017-05-16] MEDS: Pantoprazole 40 mg ER24 Tablet PO SCH (06:44)
[2017-05-16] MEDS: Multivit-Miner-Folic Acid-Iron Tablet PO SCH (09:28)
--- NOTE | 2017-05-16 11:11 | NUR ---
Faxed progress notes and labs to [facility] per [employer]ER.
--- NOTE | 2017-05-16 11:44 | NUR ---
Social Work- Readiness for Discharge Data: EMR reviewed. Pt is on day 11 of hospitalization. Pt is not medically stable for discharge, anticipate 1-2 more days. Pt discussed in rounds, pt's UA returned with "insufficient growth." MD awaiting more growth on culture and pending sensitivities. Pt's CDIFF test was negative. also reports that pt has large lymphnodes in her neck and will be receiving needle biopsy prior to discharge. BELLOWS TESTER faxed clinicals to [facility] who states they are awaiting further clarification of UA cultures and they are unable to accept pt on any precautions. notified of this and is aware. Pt is not currently on any precautions. is hopeful that pt will be able to discharge to the facility tomorrow, pending the above information. SW will continue to follow. Paperwork is in chart, PASRR has been faxed and is in folder. SW will continue to follow. Assessment: Pt for whom SNF is medically necessary Plan: obtaining needle biopsy of pt's lymphnodes in neck. Pt is negative for CDIFF. PT's UA cultures are still growing and pending sensitivities. aware the facility cannot accept pt with any active precautions. Pt anticipated to discharge to [facility] in [place]. Paperwork is in chart, PASRR has been faxed and is in folder. SW will continue to follow. SCOTT Lilly
--- NOTE | 2017-05-16 13:17 | PCM.PNMED ---
Subjective Date of Service May 16, 2017 Subjective Ana is feeling well today, she is not experiencing any dizziness, headache, nausea, or vomiting. She is tolerating oral intake well and her diarrhea has decreased today, she is feeling less bloated. Exam Vital Signs Vital Sign - Last Date Time Temp Pulse Resp B/P Pulse Ox O2 Delivery O2 Flow Rate FiO2 05/16/17 00:31 36.3 69 18 127/53 94 Room Air 05/12/17 17:59 2.00 Intake and Output 05/15/17 05/15/17 05/16/17 Cumulative From/Thru 15:00 23:00 07:00 05/05/17 12:32 - 05/15/17 20:12 Intake Total 450 ml 940 ml 97882 ml Output Total 350 ml 650 ml 46837 ml Balance 100 ml 290 ml -1768 ml Intake Oral 450 ml 940 ml 8879 ml IV Total 4953 ml Output Urine Total 350 ml 5500 ml Stool Total 2050 ml Urine/Stool Mix 350 ml 300 ml 8050 ml # Voids 5 # Bowel Movements 3 2 17 Exam General: No acute distress, cachectic, elderly, appropriately interactive HEENT: Normocephalic, atraumatic. External ears without defect. Anicteric sclerae, moist conjunctivae, and no lid lag. Oropharynx free of erythema and cobble stoning with moist mucosa. Neck: Supple with full range of motion. Cardiovascular: Regular rate and rhythm with no murmurs, rubs, or gallops appreciated Pulmonary: Clear to auscultation bilaterally with no crackles, wheezes, or rhonchi. Mildly increased respiratory effort. Abdomen: Bowel tones present. non tender, mildly distended, soft. Extremities: No clubbing, cyanosis, or lymphadenopathy appreciated. mild pitting edema to above the knee bilaterally. Skin: Normal temperature, turgor, and texture; venous stasis changes in gaiter area of legs bilaterally Neurological: Cranial nerves grossly intact. Psychiatric: Normal mood and affect. Aware of situation. Lab and Diagnostics Result Diagram: 05/15/1762105/15/17621 Microbiology Name: ANA ACEVEDO Age/Sex: 76/F Attend Dr: Deric Sykes Acct: [id number] Unit: [id number] Status: ADM IN [place] [facility] [place]29-1 Re05/05/17 Disch: Specimen: [id number] Collected: 05/06/17-1624 Status: RES Req#: [id number] Received: 05/06/17 Source: URINE CC Sp Desc : Subm Dr: Chad Morrow MD Ordered: URINE CULT Comments: Collected by Nurse/Unit? Y/N Y Procedure Result Verified Site Microbiology ROBBIN CULT URINE Preliminary 05/08/17-103 PRELIMINARY ID STREP, PROBABLE ENTEROCOCCI ID AND SENS TO FOLLOW COLONY COUNT/QUANTITY 10-25,000 CFU/ml X-Rays, CTs and MRIs PROCEDURE: CT ABDOMEN AND PELVIS WITH CONTRAST IMPRESSION: 1. Nodular liver, esophageal varices, enlarged portal vein, and marked abdominopelvic ascites consistent with stigmata of portal hypertension. This finding was discussed with Dr. Addison at 4:25 PM on 05/05/17. 2. Normal appendix. Diverticulosis. No acute diverticulitis. Dictated by: Elizabeth Green M.D. on 05/05/2017 at 16:20 Approved by: Elizabeth Green M.D. on 05/05/2017 at 16:26 12-lead ECG Atrial fibrillation with rapid ventricular response with a rate of over 170 bpm Cardiac Echo Impressions Echocardiogram Report Name: ANA ACEVEDO Study Date: 05/07/2017 Height: 67 in Hospital Exam Location: [facility] Weight: 141 lb Gender: Female BSA: 1.7 m2 : 1940 Age: 76 yrs BP: 146/64 mmHg Reason For Study: Congestive Heart Failure Ordering Physician: Performed By: Palma Devries Referring Physician: Radha Sawyer Interpretation Summary The left ventricle is normal in size, wall thickness, and systolic function without any focal wall motion abnormalities. Left ventricular systolic function is normal. The ejection fraction is estimated to be 60-65%. Assessment of diastolic parameters indicates normal left ventricular diastolic function and normal filling pressures. The right ventricle is normal in size, thickness and function. The right ventricular systolic function is normal. The right ventricular systolic pressure is estimated at 33 mmHg assuming a right atrial pressure of 3 mm Hg. There is mild to moderate mitral regurgitation. No other echocardiographic abnormalities seen. Additional Diagnostics PROCEDURE: US ABDOMEN DOPPLER IMPRESSION: 1. Liver demonstrates heterogeneous echotexture consistent with cirrhosis. The main portal vein is dilated. There is hepatopedal flow in main portal vein. 2. Gallbladder sludge. Mild gallbladder wall thickening is present, likely secondary to chronic liver disease process in acute cholecystitis. Recommend clinical correlation. 3. A small amount of ascites. 4. Small bilateral effusions. Dictated by: Leatha Cohen M.D. on 05/07/2017 at 12:57 Assessment & Plan 76-year-old lady with hx cirrhosis by CTabdomen pelvis contrast 05/05/2017, MELD 7/ MELD-Na 14 as of 05/13/2017 complicated by esophageal varcies and portal hypertension gastropathy with slow oozing on egd 05/09/2017. Albumin is low; however she has normal platelets and she is overall a poor historian. 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 The only records in our system on an outpatient basis is in 2013 which showed that she was seen once for numbness and she has a history of peripheral neuropathy. She takes fish oil, naproxen, Coenzyme Q at that time, and this was in 2013. In 2013, blood test was done, which showed hemoglobin 13.2, normal platelets, sed rate was elevated at 77, and LFTs are normal with albumin being 4.1. But, based on the CT scan, there seems to be definitive evidence of ascites with cirrhosis. Echocardiogram showing no right-sided failure or left-sided failure. Ultrasound reviewed. Portal vein was dilated. No clear evidence of portal vein thrombosis. Liver workup so far revealed that her hepatitis A antibody is positive. Alpha- 1 antitrypsin level is normal. Ceruloplasmin level was normal. Mitochondrial/ smooth muscle Ab titer and Anti-smooth muscle Ab both negative. Hepatitis B and C serologies are negative. Ascites analysis was done. The total cells were 402 White blood cell and 22% PMNs. Total protein is 0.8 albumin is 0.2.SAAG > 1.1. Therefore the ascites is most consistent with portal hypertension. Echocardiogram did not reveal a right-sided failure. Patient was already taking antibiotics by the time we did this analysis. Unfortunately ascites analysis was done with couple of days of antibiotics. Would like to consider starting propranolol 10 mg 2 times a day. However propranolol should be not use when patient has spontaneous bacterial peritonitis. I am not sure if she ever has spontaneously bacterial peritonitis. Cell count with differential was not consistent with SBP. However this was obtained after antibiotics were started. CT abdomen pelvis contrast 05/05/2017- IMPRESSION: 1. Nodular liver, esophageal varices, enlarged portal vein, and marked abdominopelvic ascites consistent with stigmata of portal hypertension. This finding was discussed with Dr. Addison at 4:25 PM on 05/05/17. 2. Normal appendix. Diverticulosis. No acute diverticulitis. 05/13/2017- Pt tolerating propanolol 10mg po bid which was started 05/12/2017. sbp >100, hr >55. No dizziness. BM x 1 overnight. Improvement in abdominal distension from yesterday 05/14/2017- No acute events overnight. sbp 116- 144 overnight. hr 70-81. tolerating propanolol well. bm x 2 yesterday. pt reports further improvement of abdominal distension from yesterday. no dizziness. 05/16/2017- patient continuing to tolerate propranolol, Lasix, and spironolactone. Recommendations: 1. Continue propranolol 10 mg by mouth twice a day. Hold if systolic pressure less than 100 or heart rate less than 55. Hold If she has lightheadedness or dizziness or if she has falls. If she does not tolerate it, consider EGD with banding. At the time of the EGD, she was on warfarin and lovenox due to A. fib. She could not be banded during EGD because of the anticoagulation with lovenoix and warfarin due to new onset A fib. 2. If she has refractory ascites, she needs to have banding. She is responding well to medical treatment for ascites at this time. 3. Ascites is consistent with portal hypertension, 2 g sodium diet and Lasix and spironolactone. We will continue with Lasix 20 mg PO once a day and spironolactone 50 mg PO once a day. 4. Her total protein in peritoneal fluid is less than 1.0 and if she indeed had SBP, she will need prophylactic antibiotics for SBP. Patient on ceftriaxone currently day 08/22. We will start ciprofloxacin 500 mg daily for prophylaxis for SBP. 5. Continue acid suppression. 40mg protonix PO daily. 6. Rifaximin 550mg BID with lower dose of lactulose due to diarrhea. From a GI standpoint patient is okay to discharge once medically stable. Case discussed in person with hospitalist Dr. Alcazar, GI will sign off at this time, if there are further questions please do not hesitate to contact the GI team. I have seen and examined the patient with the resident. Agree with above. Pain Evaluation: Adequate Pain Control GI Prophylaxis: Proton Pump Inhibitor (pantoprazole gtt) VTE Prophylaxis: Theraputic Anticoag with Warfarin, SCDs (no SCDs in the setting of lower extremity wounds, heparin contraindicated in the setting of probable GI bleed) VTE Mechanical Devices: Intermittant Pneumatic CD Resuscitation Status: DNR/DNI:Do Not Resuscitate/Intubate (discussed with patient on admission ) copies to: Chad Morrow MD, Erika R DO May 16, 2017 07:47 Chad Morrow MD May 18, 2017 13:00
--- NOTE | 2017-05-16 16:12 | PCM.PNMED ---
Subjective Date of Service May 16, 2017 Subjective She is seen today to follow-up her apparent nonalcoholic liver cirrhosis. She also mentions the bilateral neck lymph nodes. These were not noted on prior exams that I can access. It appears that she did not mention them before. She does not recall any prior biopsies or tie in to her baseline diagnosis of polyangiitis with granulomatosis. I spoke with her [id number] who contacted the brother who apparently retains more of that information as the patient is reportedly somewhat demented, and they did not recall any specific diagnosis or biopsy having been done of the neck. I spoke with Dr. Garibay and Dr. Morrow today. Their G I recommendations are appreciated. I spoke with hearings reporter who recommended the fine-needle aspiration biopsy of the posterior cervical chain lymph nodes which I have talked with radiology about doing tomorrow. She is in the middle of transitioning, having sold her home in the [facility] , hoping to move to a fci close to [place] in [place], and from there to move to live near her family in [facility], just across the border. A significant problem with that plan is that she would not be eligible for her [place] health insurance for the first 60 days in the country. She is in no shape with her chronic illnesses to make that change/take that risk at this point. Her ammonia level was 81. I reviewed with her family that the lactulose was stopped and the rifaximin was begun to treat that encephalopathy. There is also the issue of the pending urine culture which looks like it will probably be positive again tomorrow. Exam Vital Signs Vital Sign - Last Date Time Temp Pulse Resp B/P Pulse Ox O2 Delivery O2 Flow Rate FiO2 05/16/17 10:25 72 05/16/17 07:56 36.9 16 129/54 96 Room Air 05/12/17 17:59 2.00 Intake and Output 05/15/17 05/15/17 05/16/17 Cumulative From/Thru 15:00 23:00 07:00 05/05/17 12:32 - 05/15/17 20:12 Intake Total 450 ml 940 ml 51883 ml Output Total 350 ml 650 ml 52644 ml Balance 100 ml 290 ml -1768 ml Intake Oral 450 ml 940 ml 8879 ml IV Total 4953 ml Output Urine Total 350 ml 5500 ml Stool Total 2050 ml Urine/Stool Mix 350 ml 300 ml 8050 ml # Voids 5 # Bowel Movements 3 2 17 Exam She is alert and oriented to her name. She is not oriented to date or to place. She is in no apparent distress. 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 Heart is regular rate and rhythm without murmur Lungs are clear to auscultation bilaterally Extremities have no ankle edema The abdomen is mildly distended with moderate ascites present. There are significant lymph nodes easily palpable and and less easily visible along the posterior cervical chain bilaterally, right more than left. They are more easily visible when she turns her neck. IVs and Medications Medications Reviewed: Medications were reviewed in detail Lab and Diagnostics Result Diagram: 05/15/1762105/15/17621 Microbiology Name: ANA ACEVEDO Age/Sex: 76/F Attend Dr: Deric Sykes Acct: [id number] Unit: [id number] Status: ADM IN Location[place] [facility] [place] 1029-1 Re05/05/17 Disch: Specimen: [id number] Collected: 05/06/17 Status: RES Brenda#: [id number] Received: 05/06/17 Source: URINE CC Sp Desc : Subm Dr: Chad Morrow MD Ordered: URINE CULT Comments: Collected by Nurse/Unit? Y/N Y Procedure Result Verified Site Microbiology ROBBIN CULT URINE Preliminary 05/08/17-1032 PRELIMINARY ID STREP, PROBABLE ENTEROCOCCI ID AND SENS TO FOLLOW COLONY COUNT/QUANTITY 10-25,000 CFU/ml X-Rays, CTs and MRIs PROCEDURE: CT ABDOMEN AND PELVIS WITH CONTRAST IMPRESSION: 1. Nodular liver, esophageal varices, enlarged portal vein, and marked abdominopelvic ascites consistent with stigmata of portal hypertension. This finding was discussed with Dr. Addison at 4:25 PM on 05/05/17. 2. Normal appendix. Diverticulosis. No acute diverticulitis. Dictated by: Elizabeth Green M.D. on 05/05/2017 at 16:20 Approved by: Elizabeth Green M.D. on 05/05/2017 at 16:26 12-lead ECG Atrial fibrillation with rapid ventricular response with a rate of over 170 bpm Cardiac Echo Impressions Echocardiogram Report Name: ANA ACEVEDO Study Date: 05/07/2017 Height: 67 in Hospital Exam Location: [facility] Weight: 141 lb Gender: Female BSA: 1.7 m2 : 1940 Age: 76 yrs BP: 146/64 mmHg Reason For Study: Congestive Heart Failure Ordering Physician: Performed By: Palma Devries Referring Physician: Radha Sawyer Interpretation Summary The left ventricle is normal in size, wall thickness, and systolic function without any focal wall motion abnormalities. Left ventricular systolic function is normal. The ejection fraction is estimated to be 60-65%. Assessment of diastolic parameters indicates normal left ventricular diastolic function and normal filling pressures. The right ventricle is normal in size, thickness and function. The right ventricular systolic function is normal. The right ventricular systolic pressure is estimated at 33 mmHg assuming a right atrial pressure of 3 mm Hg. There is mild to moderate mitral regurgitation. No other echocardiographic abnormalities seen. Additional Diagnostics PROCEDURE: US ABDOMEN DOPPLER IMPRESSION: 1. Liver demonstrates heterogeneous echotexture consistent with cirrhosis. The main portal vein is dilated. There is hepatopedal flow in main portal vein. 2. Gallbladder sludge. Mild gallbladder wall thickening is present, likely secondary to chronic liver disease process in acute cholecystitis. Recommend clinical correlation. 3. A small amount of ascites. 4. Small bilateral effusions. Dictated by: Leatha Cohen M.D. on 05/07/2017 at 12:57 Assessment & Plan # Abdominal pain, acute, present at the time of admission, improved - discussed with Dr Morrow and started on prophylactic antibiotics for SBP, Cipro daily. - GI consultation was obtained and appreciate Dr. Morrow's and Dr. Olvera's time and expertise. - A diagnostic and therapeutic paracentesis was performed May 06 with 150 cc removed. Cultures were not performed as patient was already on antibiotics. - Much of the abdominal discomfort has been due to gas and therefore simethicone was started May 11 with considerable relief in the patient's abdominal pain and discomfort. # GI bleed, acute, present at the time of admission. Appears to be resolved. - The patient has normocytic anemia on admission with CT scan concerning for cirrhosis with noted esophageal varices - The patient has guaiac positive stools in ED - trending H&H as needed. hemoglobin has been stable. - advanced diet as tolerated - initially a Pantoprazole gtt, has been changed to daily by mouth dosing - Octreotide gtt has been discontinued - GI consult, recs appreciated. Patient went for a diagnostic EGD May [address] Morrow and was found to have esophageal varices #Cervical lymphadenopathy - Ordered fine-needle aspiration biopsy per Dr. Nieves's recommendations. - Spent quite a bit of time on the phone with family trying to work out any prior diagnosis or biopsy. That is all quite vague. He says she has a diagnosis of some sort of hematological abnormality besides the polyangiitis with granulomatosis. There are no other lymph nodes felt in the groin and axilla etc. - Polyangiitis with granulomatosis apparently does not typically cause this type of lymphadenopathy. # Portal hypertension - per GIs recommendations she is on propranolol 10 by mouth twice a day, Lasix 20 mg PO once a day and spironolactone 50 mg PO once a day and 2 g sodium diet - is tolerating propranolol well - Diuresed well - Continue acid suppression. 40mg protonix PO daily (per GI) - has finished 10 days of ceftriaxone, now starting Cipro daily. - per her request changed lactulose to rifaximin. # Diltiazem therapy - possibly a home med although not listed in med reconciliation or H & P - diagnosis for it unclear but telephone operator states she did have ~ 2 hrs of Afib on May 08 and rate did get up to 150 - dose increased during hosp stay, reason not clear - because of brief bradycardic episode May 13 was decreased from 60 QID to 30 QID so she can tolerate propranolol - Clutter this am reports has been in SR with rate 70s-80s and no bradycardic episodes past 24 hrs # Paroxysmal A fib - A fib not listed in PMH in H&P - currently in SR but Clutter states she did have ~ 2 hrs of Afib on May 08 and rate did get up to 150 - warfarin therapy mentioned but not listed as a home med - apparently had a few doses of warfarin here but not continued and INR never bumped up # Urine culture from May 06 with enterococcus - don't see any treatment given for this - will repeat UA and urine culture (ordered May 14 obtained today),, culture pending and looking like it will probably be positive. - if otherwise ready to go to SNF could treat enterococcus with oral antibiotic pending culture results # Hyponatremia, new onset May 13 with Na 131, today and yesterday 133 - most likely related to cirrhosis, follow # Lower extremity wounds, chronic, present at the time admission. 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 This apparently was diagnosed by a thread laster. - Edema has improved on oral Lasix and spironolactone -The wound care team has been consulted -We will continue to avoid SCDs at this time Disposition: SNF placement has been found. They were reluctant to take her until some unresolved issues (updated urine culture? enterococcus in urine May 06). Possibly to SNF tomorrow. GI Prophylaxis: Proton Pump Inhibitor (pantoprazole gtt) VTE Prophylaxis: no SCDs in the setting of lower extremity wounds, heparin and Coumadin contraindicated in the setting of probable GI bleed) VTE Mechanical Devices: Contraindicated Resuscitation Status: DNR/DNI:Do Not Resuscitate/Intubate (discussed with patient on admission ) GI Prophylaxis: Proton Pump Inhibitor (pantoprazole gtt) VTE Prophylaxis: Theraputic Anticoag with Warfarin, SCDs (no SCDs in the setting of lower extremity wounds, heparin contraindicated in the setting of probable GI bleed) VTE Mechanical Devices: Intermittant Pneumatic CD Resuscitation Status: DNR/DNI:Do Not Resuscitate/Intubate (discussed with patient on admission ) Lauren Alcazar MD May 16, 2017 11:24
--- NOTE | 2017-05-16 18:41 | NUR ---
Activity Patient oriented to self and date this shift. Patient denies any pain, nausea or other difficulty. Care is ongoing.
[2017-05-17 01:12] VITALS: BP 120/43; PULSE 67; RESP 18; O2SAT 93
--- NOTE | 2017-05-17 04:41 | NUR ---
Neuropathy Patient stated that she was having a little trouble picking up small things with her hands related to her neuropathy. Patient was encouraged to use the call light and ask for help with ADL's like eating if she felt she wasn't able to hold on to utensils and other small objects. Patient denies pain. Up to bedside commode, one person assist. Patient remains confused off and on. Care continues.
[2017-05-17 05:51] VITALS: BP 144/63; PULSE 77; RESP 18; O2SAT 94
[2017-05-17] MEDS: Pantoprazole 40 mg ER24 Tablet PO SCH (06:13)
[2017-05-17] MEDS: Multivit-Miner-Folic Acid-Iron Tablet PO SCH (08:42)
[2017-05-17 08:46] VITALS: BP 101/67; PULSE 81; RESP 18; O2SAT 94
--- NOTE | 2017-05-17 09:49 | NUR ---
[facility] signed
[2017-05-17 09:50] VITALS: PULSE 76
--- NOTE | 2017-05-17 10:54 | NUR ---
Called [facility] and left message for Kelsey in admissions let her know about labs and that Rifaximin is being d/c'd prior to discharge. I will fax orders once in and then Kelsey can review for final admit this afternoon. 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
--- NOTE | 2017-05-17 11:24 | NUR ---
Social Work- Readiness for Discharge Data: EMR reviewed. Pt is on day 12 of hospitalization. Per MD in rounds, pt is likely medically stable for discharge, anticipate discharge today. Discharge orders are not active at this time. Pt's UA grew enterococcus and pt will be discharging with ciprofloxicin. REFRIGERATION SERVICE TECHNICIAN confirmed with MD that pt's rifaximin will be D/C at discharge. Pt will not be receiving needle biopsy as an inpt. This care will be coordinated as a future outpt procedure. UR RN aware. Pt is on no active precautions. T/C from Pratibha, pt's sister in law, regarding discharge plan. SW explained that MD has to provide medical clearance and discharge orders. REFRIGERATION SERVICE TECHNICIAN will then facilitate transfer to [facility] in [place]. Pt will require transportation to [place] and Pratibha states that she is working and is unable to provide transport but is agreeable to private pay cabulance transport. T/C to [employer] regarding private pay quote- was quoted $180 and informed Pratibha of this. Pratibha agreeable and will contact [employer] to use credit card to pay. Pratibha also requested that pt's MD call her and provide [facility] disease management expectations. MD made aware of this in AM rounds and will complete. PT has been working with pt, pt has been able to ambulate 45 feet with fww CGA and has been min A STS. PT spoke with REFRIGERATION SERVICE TECHNICIAN regarding a walker for the pt. T/C to Vaughn at [facility] in [place] who reports that because pt is discharging to a SNF [facility] requires to SNF to coordinate all services (including DME) for patients. Vaughn states that if pt's family would like to purchase a walker they have them for sale on the showroom floor in [place]. REFRIGERATION SERVICE TECHNICIAN explained this to pt's sister in law Pratibha and gave Pratibha the contact information of [facility] in [place]. Pratibha aware that SNF will coordinate walker or she can purchase one but REFRIGERATION SERVICE TECHNICIAN cannot arrange walker to be reimbursed by [facility] at this time. Pratibha agreeable. SW spoke with pt at bedside regarding transition to SNF level of care before eventually potentially moving to [place]. Pt is agreeable to leaving the hospital, became tearful when REFRIGERATION SERVICE TECHNICIAN explained that she was not moving to her new apartment yet. Pt understands the need for continued rehabilitation to improve her mobility before she lives independently or semi-independently. Pt is nervous about the coordination of the transportation and care. REFRIGERATION SERVICE TECHNICIAN assured her that it would be taken care of. Pt is agreeable to being transported by wheelchair van and having her family meet her at [facility]. Pt updated and agreeable to plan and will be updated when orders are received and discharge time is known. ALEXIS is working with Kelsey in Admissions at [facility] to coordinate discharge. CCU NURSE will fax orders and packet to facility when packet is complete. Paperwork is in chart, PASRR has been faxed and is in folder. SW will continue to follow. Assessment: Pt for whom SNF is medically necessary Plan: Pt anticipated to discharge to [facility] in [place]. REFRIGERATION SERVICE TECHNICIAN awaiting discharge orders. ALEXIS working with admissions at facility to coordination facility admission. Paperwork is in chart, PASRR has been faxed and is in folder. SW will continue to follow. SCOTT Lilly
--- NOTE | 2017-05-17 11:52 | PCM.PNMED ---
Subjective Date of Service May 17, 2017 Subjective Pt is feeling well overnight. No new overnight issues. Exam Vital Signs Vital Sign - Last Date Time Temp Pulse Resp B/P Pulse Ox O2 Delivery O2 Flow Rate FiO2 05/17/17 10:01 Room Air 05/17/17 09:50 76 05/17/17 08:46 36.7 18 101/67 94 05/12/17 17:59 2.00 Intake and Output 05/16/17 05/16/17 05/17/17 Cumulative From/Thru 15:00 23:00 07:00 05/05/17 12:32 - 05/17/17 06:33 Intake Total 275 ml 980 ml 600 ml 11428 ml Output Total 800 ml 500 ml 600 ml 80914 ml Balance -525 ml 480 ml 0 ml -1813 ml Intake Oral 275 ml 980 ml 600 ml 03622 ml IV Total 4953 ml Output Urine Total 400 ml 500 ml 6400 ml Stool Total 400 ml 2450 ml Urine/Stool Mix 600 ml 8650 ml # Voids 5 # Bowel Movements 2 1 20 Exam She is alert and oriented to her name. She is not oriented to date or to place. She is in no apparent distress. Heart is regular rate and rhythm without murmur Lungs are clear to auscultation bilaterally Extremities have no ankle edema The abdomen is mildly distended with moderate ascites present. There are palpable Lymph Nodes and less easily visible along the posterior cervical chain bilaterally, right more than left. IVs and Medications Medications Reviewed: Medications were reviewed in detail Lab and Diagnostics Result Diagram: 05/15/1762105/15/17621 Microbiology Name: NAA ACEVEDO Age/Sex: 76/F Attend Dr: Deric Sykes Acct: [id number] Unit: [id number] Status: ADM IN Location: [facility] [place] 1029-1 Re05/05/17 Disch: Specimen: [id number] Collected: 05/06/17 Status: RES Req#: [id number] Received: 05/06/17 Source: URINE CC Sp Desc : Subm Dr: Chad Morrow MD Ordered: URINE CULT Comments: Collected by Nurse/Unit? Y/N Y Procedure Result Verified Site Microbiology ROBBIN CULT URINE Preliminary 05/08/17 PRELIMINARY ID STREP, PROBABLE ENTEROCOCCI ID AND SENS TO FOLLOW COLONY COUNT/QUANTITY 10-25,000 CFU/ml X-Rays, CTs and MRIs PROCEDURE: CT ABDOMEN AND PELVIS WITH CONTRAST IMPRESSION: 1. Nodular liver, esophageal varices, enlarged portal vein, and marked abdominopelvic ascites consistent with stigmata of portal hypertension. This finding was discussed with Dr. Addison at 4:25 PM on 05/05/17. 2. Normal appendix. Diverticulosis. No acute diverticulitis. Dictated by: Elizabeth Green M.D. on 05/05/2017 at 16:20 Approved by: Elizabeth Green M.D. on 05/05/2017 at 16:26 12-lead ECG Atrial fibrillation with rapid ventricular response with a rate of over 170 bpm Cardiac Echo Impressions Echocardiogram Report Name: ANA ACEVEDO Study Date: 05/07/2017 Height: 67 in Hospital Exam Location: [facility] Weight: 141 lb Gender: Female BSA: 1.7 m2 : 1940 Age: 76 yrs BP: 146/64 mmHg Reason For Study: Congestive Heart Failure Ordering Physician: Performed By: Palma Devries Referring Physician: Radha Sawyer Interpretation Summary The left ventricle is normal in size, wall thickness, and systolic function without any focal wall motion abnormalities. Left ventricular systolic function is normal. The ejection fraction is estimated to be 60-65%. Assessment of diastolic parameters indicates normal left ventricular diastolic function and normal filling pressures. The right ventricle is normal in size, thickness and function. The right ventricular systolic function is normal. The right ventricular systolic pressure is estimated at 33 mmHg assuming a right atrial pressure of 3 mm Hg. There is mild to moderate mitral regurgitation. No other echocardiographic abnormalities seen. Additional Diagnostics PROCEDURE: US ABDOMEN DOPPLER IMPRESSION: 1. Liver demonstrates heterogeneous echotexture consistent with cirrhosis. The main portal vein is dilated. There is hepatopedal flow in main portal vein. 2. Gallbladder sludge. Mild gallbladder wall thickening is present, likely secondary to chronic liver disease process in acute cholecystitis. Recommend clinical correlation. 3. A small amount of ascites. 4. Small bilateral effusions. Dictated by: Leatha Cohen M.D. on 05/07/2017 at 12:57 Assessment & Plan # Abdominal pain, acute, present at the time of admission, improved - GI consultation was obtained and appreciate Dr. Morrow's and Dr. Olvera's time and expertise. Dr Morrow and started on prophylactic antibiotics for SBP, Cipro daily. - A diagnostic and therapeutic paracentesis was performed May 06 with 150 cc removed. # GI bleed, acute, present at the time of admission. Appears to be resolved. - The patient has normocytic anemia on admission with CT scan concerning for cirrhosis with noted esophageal varices - The patient had guaiac positive stools in ED. Hb has been stable. - initially a Pantoprazole gtt, has been changed to daily by mouth dosing - Octreotide gtt was discontinued. #Cervical lymphadenopathy- Pt will need fine-needle aspiration biopsy as outpatient. 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 There are no other lymph nodes felt in the groin and axilla etc. - Polyangiitis with granulomatosis apparently does not typically cause this type of lymphadenopathy, pt will also f/u w/ her rhuematologist # Portal hypertension - per GIs recommendations she is on propranolol 10 by mouth twice a day, Lasix 20 mg PO once a day and spironolactone 50 mg PO once a day and 2 g sodium diet - is tolerating propranolol well - Diuresed well - Continue acid suppression. 40mg protonix PO daily (per GI) - has finished 10 days of ceftriaxone, now starting ppx Cipro daily. - Rifaximin not covered, will continue with Lactulose # # Paroxysmal A fib - A fib not listed in PMH in H&P - currently in SR but [place] [employer] states she did have ~ 2 hrs of Afib on May 08 and rate did get up to 150 - warfarin therapy mentioned but not listed as a home med. Pt is taking Diltiazem, will continue. # Urine culture- + enterococcus, confirmed by repeat UA/Ucx on May 14. Pt is on Ciprofloxacin for SBP ppx and this will also cover. # Hyponatremia- asymptomatic. most likely related to cirrhosis. # Lower extremity wounds, chronic, present at the time admission. 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 This apparently was diagnosed by a service station operator. - Edema has improved on oral Lasix and spironolactone Disposition: SNF placement has been found and she will be d/c today. GI Prophylaxis: Proton Pump Inhibitor (pantoprazole gtt) VTE Prophylaxis: no SCDs in the setting of lower extremity wounds, heparin and Coumadin contraindicated in the setting of probable GI bleed) VTE Mechanical Devices: Contraindicated Resuscitation Status: DNR/DNI:Do Not Resuscitate/Intubate (discussed with patient on admission ) GI Prophylaxis: Proton Pump Inhibitor (pantoprazole gtt) VTE Prophylaxis: Theraputic Anticoag with Warfarin, SCDs (no SCDs in the setting of lower extremity wounds, heparin contraindicated in the setting of probable GI bleed) Resuscitation Status: DNR/DNI:Do Not Resuscitate/Intubate (discussed with patient on admission ) Time spent 60 minutes Drwe Escobar MD May 17, 2017 11:34 24). Possibly to SNF tomorrow. GI Prophylaxis: Proton Pump Inhibitor (pantoprazole gtt) VTE Prophylaxis: no SCDs in the setting of lower extremity wounds, heparin and Coumadin contraindicated in the setting of probable GI bleed) VTE Mechanical Devices: Contraindicated Resuscitation Status: DNR/DNI:Do Not Resuscitate/Intubate (discussed with patient on admission ) GI Prophylaxis: Proton Pump Inhibitor (pantoprazole gtt) VTE Prophylaxis: Theraputic Anticoag with Warfarin, SCDs (no SCDs in the setting of lower extremity wounds, heparin contraindicated in the setting of probable GI bleed) VTE Mechanical Devices: Intermittant Pneumatic CD Resuscitation Status: DNR/DNI:Do Not Resuscitate/Intubate (discussed with patient on admission ) Time spent 60 minutes Drew Escobar MD May 17, 2017 11:34
[2017-05-17 12:58] VITALS: BP 136/61; PULSE 87; RESP 18; O2SAT 92
--- NOTE | 2017-05-17 13:16 | PCM.DIMED ---
Discharge Instructions Date of Service May 17, 2017 Dates of Hospitalization May 05, 2017 at 18:41 Discharge Diagnosis Discharge Diagnosis # Abdominal pain # GI bleed #Cervical lymphadenopathy # Portal hypertension # Paroxysmal A fib # UTI + enterococcus # Hyponatremia . Medication Instructions Additional med instructions We will start ciprofloxacin 500 mg daily for prophylaxis to take daily. Limit diet to 2 g sodium diet. For swelling continue Lasix and spironolactone. If ascites or abdominal swelling worsen will need to contact Gastroenterology, Dr. Chad Morrow as may need further intervention. Continue taking Propanolol as directed. Use walker to move around until strength improves. Diet Discharge Diet: Low fat, Low Sodium Activity Discharge Activity: Other (Use walker to ambulate) Call your provider Call your provider for: Other (Worsening abdominal pain ) Patient Instructions Follow-up plan Follow up with your primary doctor to further evaluate swollen lymph nodes Follow-up with PCP in: 1 week Provider: Chad Morrow MD Follow-up in: 2 weeks Drew Escobar MD May 17, 2017 13:15
[2017-05-17] MEDS ORDERED: DILT30TA30 PO (13:24)
[2017-05-17] MEDS ORDERED: RIFA550T3 PO (13:24)
[2017-05-17] MEDS ORDERED: Al Hydrox/Mg Hydrox/Simeth PO (13:24)
[2017-05-17] MEDS ORDERED: ONDA4VIA27 IVPUSH (13:24)
[2017-05-17] MEDS ORDERED: SENN-133 PO (13:24)
[2017-05-17] MEDS ORDERED: CIPR-231 PO (13:24)
[2017-05-17] MEDS ORDERED: PROP40TA5 PO (13:24)
[2017-05-17] MEDS ORDERED: PANT40TA3 PO (13:24)
[2017-05-17] MEDS ORDERED: SPIR25TA PO (13:24)
[2017-05-17] MEDS ORDERED: FUR20 PO (13:24)
--- NOTE | 2017-05-17 14:06 | NUR ---
spiritual care: routine conversational visit. pt seemed most concerned about discharge, non linear style as she shared some concerns and loneliness. Pt welcomed company and is agreeable to visit from caring personal security specialist. Addendum: 05/17/17 at 1639 by BELIA WOODS CM pt rec visit from caring personal security specialist jose antonio white who reported pt was tired
--- NOTE | 2017-05-17 15:38 | NUR ---
Social Work- Discharge Data: EMR reviewed. Pt is on day 12 of hospitalization for MCR and AARP Supp. Per MD in rounds, pt is medically stable for discharge, discharge orders are active. [employer] created packet and faxed orders. Pt's scripts have been faxed. RN provided number for RN report. JOYCELYN spoke with Pratibha who is agreeable to private pay transportation with [employer]. SW explained that she will have to pay by credit card, they will not bill her. Pratibha agreeable. T/C to Justina at [employer] regarding wheelchair van transportation. [employer]'s only available time is 5 pm. T/C to [employer] [facility] who are unavailable for wheelchair van transport today. Justina at [employer] agreeable to contacting pt's sister in law Pratibha to obtain credit card information. Pratibha agreeable to this. Pratibha will visit pt at facility likely this weekend. T/C to Kelsey, admissions at [facility] who is agreeable to pt discharging from [facility] at 5 pm via wheelchair van. JOYCELYN spoke with pt at bedside regarding discharge. JOYCELYN explained again that pt will be transitioning to SNF level of care before eventually potentially moving to [place]. Pt is agreeable to leaving the hospital, but is easily overwhelmed. SW provided detailed explanation of transport process. Pt more comfortable when process was explained to her. Pt updated of transport time of 5 pm. Pt to discharge to [facility] for continued PT/OT services, transport at 5 pm via wheelchair van through [employer]. Packet and discharge orders have been faxed. Facility is agreeable to pt's discharge time of 5 pm. RN, UC, pt/family, and facility all updated and agreeable to plan. Assessment: Pt for whom SNF is medically necessary Plan: Pt to discharge to [facility] for continued PT/OT services, transport at 5 pm via wheelchair van through [employer]. Packet and discharge orders have been faxed. Facility is agreeable to pt's discharge time of 5 pm. RN, UC, pt/family, and facility all updated and agreeable to plan. Chanelle Hahn MSW
--- NOTE | 2017-05-17 18:55 | NUR ---
Discharge Orders for discharge to care facility received. The patient was made aware of the plan to discharge and was agreeable to go. The patient's asymptomatic IV was removed intact and the patient dressed in her own clothing. The patient's belongings were gathered. The patient then ambulated to a wheelchair which took her to the main entrance where she entered a private transportation vehicle. At the time of discharge the patient was alert and oriented, with no compliant of shortness of breath, chest pain, nausea or other difficulty. Patient informational packet prepared by social work and accompanies patient off hospital property. Report called to YOGI Huertas at receiving facility. Family aware of discharge.
--- NOTE | 2017-05-18 15:05 | PCM.DC.MED ---
Discharge Summary Date of Service May 18, 2017 Dates of Hospitalization Date of Hospital Admission May 05, 2017 at 18:41 Date of Discharge: May 17, 2017 Providers: Admitting Physician: Deric Sykes MD Primary Care Physician: Emmanuel Palomino MD Attending Physician: Deric Sykes MD Diagnosis at Time of Discharge Diagnosis at Time of Discharge # Abdominal pain # GI bleed #Cervical lymphadenopathy # Portal hypertension # Paroxysmal A fib # UTI + enterococcus # Hyponatremia . Consultations Gastroenterology Procedures XRay, CTs & MRIs PROCEDURE: CT ABDOMEN AND PELVIS WITH CONTRAST IMPRESSION: 1. Nodular liver, esophageal varices, enlarged portal vein, and marked abdominopelvic ascites consistent with stigmata of portal hypertension. This finding was discussed with Dr. Addison at 4:25 PM on 05/05/17. 2. Normal appendix. Diverticulosis. No acute diverticulitis. Dictated by: Elizabeth Green M.D. on 05/05/2017 at 16:20 Approved by: Elizabeth Green M.D. on 05/05/2017 at 16:26 ECG 12 Lead Atrial fibrillation with rapid ventricular response with a rate of over 170 bpm Cardiac Echo Impression Echocardiogram Report Name: ANA ACEVEDO Study Date: 05/07/2017 Height: 67 in Hospital Exam Location: [facility] Weight: 141 lb Gender: Female BSA: 1.7 m2 : 1940 Age: 76 yrs BP: 146/64 mmHg Reason For Study: Congestive Heart Failure Ordering Physician: Performed By: Palma Devries Referring Physician: Radha Sawyer Interpretation Summary The left ventricle is normal in size, wall thickness, and systolic function without any focal wall motion abnormalities. Left ventricular systolic function is normal. The ejection fraction is estimated to be 60-65%. Assessment of diastolic parameters indicates normal left ventricular diastolic function and normal filling pressures. The right ventricle is normal in size, thickness and function. The right ventricular systolic function is normal. The right ventricular systolic pressure is estimated at 33 mmHg assuming a right atrial pressure of 3 mm Hg. There is mild to moderate mitral regurgitation. No other echocardiographic abnormalities seen. Other Diagnostics PROCEDURE: US ABDOMEN DOPPLER IMPRESSION: 1. Liver demonstrates heterogeneous echotexture consistent with cirrhosis. The main portal vein is dilated. There is hepatopedal flow in main portal vein. 2. Gallbladder sludge. Mild gallbladder wall thickening is present, likely secondary to chronic liver disease process in acute cholecystitis. Recommend clinical correlation. 3. A small amount of ascites. 4. Small bilateral effusions. Dictated by: Leatha Cohen M.D. on 05/07/2017 at 12:57 Brief History 76yoF with past medical history of Lalita's admitted with subacute onset of abdominal distension and worsening abdominal pain. Patient is fatigued and mildly confused during interview but able to give some history. 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 Over the past couple of weeks she has noticed increased abdominal distension associated with crampy abdominal pain. She denies fevers stating that she "never has fevers" and endorsing chills noting she "always has chills and need to wear extra clothing to keep warm". Nothing has improved her crampy abdominal pain but she has tried pepto-bismol. She denies nausea, vomiting, decreased PO intake, lightheadedness, dizziness, orthopnea, chest pain or PND but endorses increased "gurgling" from her distended abdomen and increase flatulence with ongoing tarry stools. As far as past history she denies anything other than Lalita's including hepatitis. She denies frequent alcohol use and prefers to only sip a beverage infrequently due to nausea a/w ETOH consumption. She has not past history of tobacco use but has been exposed to asbestos as a child. She speaks frequently during her interview of the many places she has traveled throughout the world during her lifetime. PCP: Dr. Pratt but she has not seen him for "a long time Hospital Course 76-year-old lady with hx cirrhosis by CTabdomen pelvis contrast 05/05/2017, MELD 7/ MELD-Na 14 as of 05/13/2017 complicated by esophageal varcies and portal hypertension gastropathy with slow oozing on egd 05/09/2017. Albumin is low; however she has normal platelets and she is overall a poor historian. 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 The only records in our system on an outpatient basis is in 2013 which showed that she was seen once for numbness and she has a history of peripheral neuropathy. She takes fish oil, naproxen, Coenzyme Q at that time, and this was in 2013. In 2014, blood test was done, which showed hemoglobin 13.2, normal platelets, sed rate was elevated at 77, and LFTs are normal with albumin being 4.1. But, based on the CT scan, there seems to be definitive evidence of ascites with cirrhosis. Echocardiogram showing no right-sided failure or left-sided failure. Ultrasound reviewed. Portal vein was dilated. No clear evidence of portal vein thrombosis. # Abdominal pain, acute, present at the time of admission, improved - GI consultation was obtained and appreciate Dr. Morrow's and Dr. Olvera's time and expertise. Dr Morrow and started on prophylactic antibiotics for SBP, Cipro daily. - A diagnostic and therapeutic paracentesis was performed May 06 with 150 cc removed. # GI bleed, acute, present at the time of admission. Appears to be resolved. - The patient has normocytic anemia on admission with CT scan concerning for cirrhosis with noted esophageal varices - The patient had guaiac positive stools in ED. Hb has been stable. - initially a Pantoprazole gtt, has been changed to daily by mouth dosing - Octreotide gtt was discontinued. #Cervical lymphadenopathy- Pt will need fine-needle aspiration biopsy as outpatient. 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 There are no other lymph nodes felt in the groin and axilla etc. - Polyangiitis with granulomatosis apparently does not typically cause this type of lymphadenopathy, pt will also f/u w/ her rhuematologist # Portal hypertension with ascitis. Treating as probable SBP - per GIs recommendations she is on propranolol 10 by mouth twice a day, Lasix 20 mg PO once a day and spironolactone 50 mg PO once a day and 2 g sodium diet - is tolerating propranolol well - Diuresed well - Continue acid suppression. 40mg protonix PO daily (per GI) - has finished 10 days of ceftriaxone, now starting ppx Cipro daily. - Rifaximin not covered, will continue with Lactulose # Paroxysmal A fib - A fib not listed in PMH in H&P - currently in SR but [employer] states she did have ~ 2 hrs of Afib on May 08 and rate did get up to 150 - warfarin therapy mentioned but not listed as a home med. Pt is taking Diltiazem, will continue. # UTI- + enterococcus, confirmed by repeat UA/Ucx on May 14. Pt is on Ciprofloxacin for SBP ppx and this will also cover. # Hyponatremia- asymptomatic. most likely related to cirrhosis. Exam Vital Signs (Last) Date Time Temp Pulse Resp B/P Pulse Ox O2 Delivery O2 Flow Rate FiO2 05/17/17 12:58 36.5 87 18 136/61 92 Room Air 05/12/17 17:59 2.00 Test 05/05/17 13:20 05/05/17 14:03 05/05/17 15:04 05/06/17 08:00 Lipase 76U/L (13-60) Hold Urine Received (Received) Lactic Acid Level 1.1mmol/L (0.4-2.0) Phosphorus Level 3.4mg/dL (2.5-4.9) Test 05/07/17 08:20 05/08/17 15:58 05/13/17 06:10 05/14/17 06:03 Iron Level 24ug/dL (35-150) Ferritin 185ng/mL (13-150) Jaxdh-4-Itamthtzupn 166mg/dL (90-200) Ceruloplasmin 34.8mg/dL (19.0-39.0) Tumor Marker Alpha Fetoprotein 2.5ng/mL (0.0-8.3) Procalcitonin 0.26ng/mL (0.00-0.08) Mitochondrial/Smooth Musc Ab Titer 11.6Units (0.0-20.0) Anti-Smooth Muscle Antibody 14Units (0-19) Hepatitis A IgM Antibody Negative (Negative) Hepatitis A Antibody Total Positive (Negative) Hepatitis Be Antibody Negative (Negative) Hepatitis Be Antigen Negative (Negative) Hepatitis C Antibody <0.1s/co ratio (0.0-0.9) Body Fluid Source Peritoneal fluid Body Fluid Color Straw (Clear) Body Fluid Appearance Clear Body Fluid WBC 405/mm3 Body Fluid RBC 435/mm3 Body Fluid Polynuclear WBCs 22% Body Fluid Lymphocytes 4% Body Fluid Monocytes 64% Body Fluid Eosinophils 0% Body Fluid Basophils 0% Body Fluid Total Protein 0.8g/dL Body Fluid Albumin 0.2g/dL (.) Neutrophils (%) (Auto) 71.4% (40-74) Lymphocytes (%) (Auto) 12.8% (14-46) Monocytes (%) (Auto) 11.6% (4-12) Eosinophils (%) (Auto) 3.1% (0-5) Basophils (%) (Auto) 0.7% (0-3) Magnesium Level 1.7mg/dL (1.6-2.6) Prothrombin Time 10.8sec (8.1-12.5) Prothromb Time International Ratio 1.01ratio Total Bilirubin 0.6mg/dL (0.0-1.2) Aspartate Amino Transf (AST/SGOT) 66U/L (0-50) Alanine Aminotransferase (ALT/SGPT) 63U/L (0-32) Alkaline Phosphatase 299U/L (25-165) Total Protein 5.1g/dL (6.4-8.4) Albumin 2.1g/dL (3.4-5.0) Test 05/15/17 06:22 05/15/17 11:11 White Blood Count 7.7th/mm3 (3.8-10.1) Red Blood Count 3.83mil/mm3 (3.90-5.20) Hemoglobin 10.7g/dL (12.0-15.6) Hematocrit 33.2% (35.0-46.0) Mean Corpuscular Volume 86.7fL (81-100) Mean Corpuscular Hemoglobin 27.9pg (27.0-35.0) Mean Corpuscular Hemoglobin Concent 32.2% (32.0-37.0) Red Cell Distribution Width 15.9% (12.3-15.4) Platelet Count 193bil/L (150-400) Sodium Level 133mEq/L (134-144) Potassium Level 3.9mEq/L (3.5-5.2) Chloride Level 104mEq/L (97-108) Carbon Dioxide Level 19mmol/L (18-29) Blood Urea Nitrogen 23mg/dL (8-27) Creatinine 0.52mg/dL (0.57-1.00) Estimat Glomerular Filtration Rate 163mL/min (>59) Glucose Level 96mg/dL (60-99) Calcium Level 7.7mg/dL (8.5-10.1) Ammonia 81ug/dL (18-53) Urine Color Yellow (YELLOW) Urine Appearance Slightly cloudy Urine pH 5.5 (5.0-8.0) Urine Specific [place] 1.005 (1.003-1.035) Urine Protein Negativemg/dL (NEG,TRACE) Urine Glucose (UA) Negativemg/dL (NEGATIVE) Urine Ketones Negativemg/dL (NEGATIVE) Urine Occult Blood Small (NEGATIVE) Urine Nitrite Negative (NEGATIVE) Urine Bilirubin Small (NEGATIVE) Urine Ictotest Positive (Negative) Urine Urobilinogen Normalmg/dL (NORMAL) Urine Leukocyte Esterase Small (NEGATIVE) Urine RBC 0-2/hpf (0-2) Urine WBC 6-10/hpf (0-5) Urine Epithelial Cells Few/hpf (NONE-MOD) Urine Crystals None seen (NONE SEEN) Urine Bacteria Many/hpf (NONE-FEW) Urine Hyaline Casts None/lpf (NONE) Urine Granular Casts None seen (NONE SEEN) Urine Waxy Casts None seen (NONE SEEN) Urine Red Blood Cell Casts None seen (NONE SEEN) Urine White Blood Cell Casts None seen (NONE SEEN) Urine Mucus None seen (None Seen) Urine Trichomonas None seen (NONE SEEN) Urine Yeast None (NONE SEEN) Urinalysis Comment None Urine Culture Reflexed Indicated Microbiology Results Name: ANA ACEVEDO Age/Sex: 76/F Attend Dr: Deric Sykes Acct: [id number] Unit: [id number] Status: ADM IN [place]: [facility] [place] 10[facility]-1 Re05/05/17 Disch: Specimen: [id number] Collected: 05/06/17 Status: RES Req#: [id number] Received: 05/06/17 Source: URINE CC Sp Desc : Subm Dr: Chad Morrow MD Ordered: URINE CULT Comments: Collected by Nurse/Unit? Y/N Y Procedure Result Verified Site Microbiology ROBBIN CULT URINE Preliminary 05/08/17-1032 PRELIMINARY ID STREP, PROBABLE ENTEROCOCCI ID AND SENS TO FOLLOW COLONY COUNT/QUANTITY 10-25,000 CFU/ml Discharge Medications Discharge Medications Ciprofloxacin (Cipro) 500 Mg Tablet 500 MG PO DAILY Prescribed by: KAITY ALLEN MD Diltiazem (Cardizem) 30 Mg Tablet 30 MG PO ACHS Prescribed by: KAITY ALLEN MD Furosemide (Furosemide) 20 Mg Tab 20 MG PO DAILY Prescribed by: KAITY ALLEN MD Multivitamin (Multivitamins) 1 Each Capsule 1 EACH PO DAILY (Reported) Pantoprazole DR (Pantoprazole DR) 40 Mg Tablet.dr 40 MG PO 0630 Prescribed by: KAITY ALLEN MD Propranolol HCl (Propranolol HCl) 40 Mg Tablet 10 MG PO BID Prescribed by: KAITY ALLEN MD Spironolactone (Aldactone) 25 Mg Tablet 50 MG PO DAILY Prescribed by: KAIYT ALLEN MD As needed ([Al Hydrox/Mg Hydrox/Simeth]) 30 ML SUSP 30 ML PO Q6H PRN PRN For Dyspepsia or Heartburn Prescribed by: KAITY ALLEN MD Carboxymethylcellulose Sodium (Refresh Tears) 15 Ml Drops 1 DROP BOTH_EYES TID PRN PRN For Eye Irritation (Reported) Naproxen Na-Diphenhydramin HCl (Aleve Pm Caplet) 220 Mg-25 Mg Tablet 1 EACH PO HS PRN PRN Insomnia (Reported) Sennosides (Senna) 8.6 Mg Tablet 17.2 MG PO BID PRN PRN For Constipation Prescribed by: KAITY ALLEN MD Additional med instructions We will start ciprofloxacin 500 mg daily for prophylaxis to take daily. Limit diet to 2 g sodium diet. For swelling continue Lasix and spironolactone. If ascites or abdominal swelling worsen will need to contact Gastroenterology, Dr. Chad Morrow as may need further intervention. Continue taking Propanolol as directed. Use walker to move around until strength improves. Followup Plan Follow-up plan Follow up with your primary doctor to further evaluate swollen lymph nodes Discharge Diet: Low fat, Low Sodium Discharge Activity: Other (Use walker to ambulate) Follow-up with PCP in: 1 week Provider: Chad Morrow MD Follow-up in: 2 weeks Kaity Allen MD May 18, 2017 15:05
== END 2017-05-17 17:00 | DRG 372 ==
LOC: SED 12:30 → OSC 18:41
PROVIDERS: ADMIT Internal Medicine Infectious Disease; ATTEND Internal Medicine
PROC: 0W9G3ZX Drainage of Peritoneal Cavity, Percutaneous Approach, Diagnostic (ICD-10-PCS; principal; 2017-05-06)
PROC: 0DJ08ZZ Inspection of Upper Intestinal Tract, Via Natural or Artificial Opening Endoscopic (ICD-10-PCS; 2017-05-09)
DX: K65.2 Spontaneous bacterial peritonitis (principal); K76.6 Portal hypertension; R18.8 Other ascites; I85.10 Secondary esophageal varices without bleeding; E87.1 Hypo-osmolality and hyponatremia; N39.0 Urinary tract infection, site not specified; K92.2 Gastrointestinal hemorrhage, unspecified; M31.30 Wegener's granulomatosis without renal involvement; K74.60 Unspecified cirrhosis of liver; K31.89 Other diseases of stomach and duodenum; I48.0 Paroxysmal atrial fibrillation; D64.9 Anemia, unspecified; B95.2 Enterococcus as the cause of diseases classified elsewhere; R59.1 Generalized enlarged lymph nodes